=== PATIENT | male | born 1955 | race Caucasian/White ===

== ENCOUNTER → 2016-05-22 | Outpatient (CLI) | payer BC ==
[~2016-05-22] VITALS: Ht 170.2 cm; Wt 108.0 kg
[~2016-05-22] MED LIST: ALLO100T PO; AMPH10TA2 PO; CLC6 PO; GLC/500 PO; SERT100T PO; SERT50TA PO; TRAM-10 PO
[2016-05-22 13:51] VITALS: BP 164/80; PULSE 106; Ht 170.2 cm; Wt 108.0 kg
== END | disposition home or self-care (01) ==
LOC: C.NEUR 13:30
PROVIDERS: ATTEND Family Medicine
DX: G47.33 Obstructive sleep apnea (adult) (pediatric) (principal)

== ENCOUNTER → 2017-05-27 | Outpatient (CLI) | payer BC ==
[~2017-05-27] VITALS: Ht 170.2 cm; Wt 100.0 kg
[2017-05-27 15:41] VITALS: BP 144/83; PULSE 84; Ht 170.2 cm; Wt 100.0 kg
== END | disposition home or self-care (01) ==
LOC: C.NEUR 13:14
PROVIDERS: ATTEND Physician Assistant
DX: G47.33 Obstructive sleep apnea (adult) (pediatric) (principal)

== ENCOUNTER 2022-01-10 13:24 | Inpatient (IN) ==
[2022-01-10] MEDS ORDERED: MoRPHine SULFATE 4 MG/ML 1 ML CARP\\VIAL IV STA ×2 (14:17→16:30)
[2022-01-10] MEDS ORDERED: ONDANSETRON INJ 2 MG/ML 2 ML VIAL IV STA (14:17)
[2022-01-10] MEDS ORDERED: SODIUM CHLORIDE 0.9% 1000ML 1,000 ML IV STA (14:17)
--- NOTE | 2022-01-10 14:41 | Emergency Department Note ---
Impression & Plan Acute gallstone pancreatitis, Abdominal pain, Acute cholecystitis ED Provider Note NAME: KAVITA HERNANDEZ AGE: 66 SEX: M : 1955 ARRIVES VIA: Walk-In INFORMANT: [Patient][, ] ED PROVIDER(S): [Parminder Salinas MD] Chief Complaint: Abdominal pain HPI: Patient presents due to concern for right upper quadrant pain. Patient states that this began around midnight earlier this morning. The patient did not take anything for the pain and describes it as strong and nonradiating. The patient is had some mild right-sided back discomfort as well. Patient denies any fevers chills or chest pains. She denies any numbness tingling or focal weakness. Patient has had dry heaves but no vomiting. The patient does have prior surgical history of appendectomy and prior hernia repairs. The patient states that he last had a bowel movement yesterday no blood in the urine or stool and patient denies any dysuria. Patient denies any shortness of breath. Patient denies alcohol tobacco or drug use. The patient is a type II diabetic and does not use insulin. ROS: See HPI for pertinent positives and negatives. A total of 10 systems were reviewed and otherwise negative. Past medical history: See below Surgical history: See below Social history: See below Physical Exam: GENERAL: NAD, [wearing a mask,] non-toxic. EYE EXAM: Normal conjunctiva. PERRL, no anisocoria and EOM's grossly intact w/o pain. NECK: Supple, no nuchal rigidity, no adenopathy, non-tender. No signs of meningismus. FROM of the neck with good chin to chest and neck extension. No stridor. LUNGS: Clear to auscultation. Normal chest wall mechanics. HEART: NSR, no MRG. ABDOMEN: Abdomen soft, right upper quadrant pain, normo-active bowel sounds, no masses, no rebound or guarding. BACK: No CVA TTP. No midline or paraspinal lumbar thoracic discomfort. SKIN: No rashes and no bruising. UPPER EXTREMITIES: Upper extremities are grossly normal. LOWER EXTREMITIES: Right AKA noted, grossly normal, no edema. NEURO EXAM: A&O x3, cranial nerves II-XII grossly intact, normal speech, moves all 4 extremities. Differential diagnoses: Appendicitis, testicular torsion, infections, diverticulitis, UTI, obstruction, mesenteric ischemia, aortic pathology, inflammatory bowel disease, renal colic, PUD, pancreatitis, biliary pathology, hernia, volvulus, constipation, as well as other pathologies. Course: Patient was seen and evaluated the bedside. Full history physical exam was performed. Imaging Studies: See Below Cardiac monitoring: An order was placed for continuous cardiac monitoring. The monitor shows a rate of 77 with sinus rhythm. MDM: Patient presented due to concern for abdominal pain. Blood work obtained patient treated symptomatically with IV Zofran and IV morphine. Patient did have a CAT scan of the abdomen pelvis completed as well. Patient's blood work showed a normal white count. The patient's H&H and platelet count were unremarkable. Patient's kidney function unremarkable. Patient does have transaminitis with an elevated bilirubin 2.2 in addition to an elevated AST and ALT at 334 and 324 respectively. Lipase of 2500. Urinalysis negative for obvious infection. COVID-negative. Patient CT abdomen pelvis does show concern for cholecystitis as well as possible pancreatitis. Given patient's labs concern for gallstone pancreatitis. I did speak with on-call general surgery Dr. Treviño. I subsequently did speak with Dr. Franklin who does not perform ERCPs. He did speak with Dr. Miller who stated that he would perform an ERCP if needed. Patient did have antibiotics ordered and I did speak the on-call hospitalist Dr. Meza. Patient was admitted to the medicine service. MRCP was ordered and pending at the time of admission. Surgery and GI will both see the patient. Past Med/Surg History Medical History (Updated 01/10/22 @ 18:43 by Parminder Salinas MD) Depression Gout Hyperlipemia Opioid abuse, in remission Severe obstructive sleep apnea Type 2 diabetes mellitus Surgical History History of appendectomy History of hernia repair History of lumbar laminectomy History of right above knee amputation History of sinus surgery Family History Father Alzheimer disease Prostate cancer Mother Congestive heart failure Gout Social History Smoking Status: Former smoker Hx Alcohol Use: No Hx Substance Use: No Preferred Language: Kiswahili marital status: Current Living Situation: Family current occupational status: retired Feels Safe at Home: Yes Allergies Allergies Allergy/AdvReac Type Severity Reaction Status Date / Time bupropion Allergy Severe HIVES Verified 01/10/22 16:27 bee venom protein (honey bee) Allergy Intermediate hives, Verified 01/10/22 16:27 lips swell Home Meds Home Medications Medication Instructions Recorded Confirmed allopurinol 300 mg tablet 300 mg PO DAILY 01/10/22 01/10/22 aspirin 81 mg tablet,delayed 81 mg PO DAILY 01/10/22 01/10/22 release atorvastatin 40 mg tablet 40 mg PO DAILY 01/10/22 01/10/22 colchicine 0.6 mg tablet (Colcrys) 0.6 mg PO BID PRN gout attack 01/10/22 01/10/22 cyanocobalamin (vitamin B-12) 1,000 mcg PO DAILY 01/10/22 01/10/22 1,000 mcg tablet (Vitamin B-12) ferrous sulfate 325 mg (65 mg 325 mg PO DAILY 01/10/22 01/10/22 iron) tablet (iron) fluoride (sodium) 1.1 % dental 1 applic PO DIRECTED 01/10/22 01/10/22 cream (SF 5000 Plus) lisinopril 10 mg tablet 10 mg PO DAILY 01/10/22 01/10/22 metformin 500 mg tablet 1,000 mg PO BID 01/10/22 01/10/22 pregabalin 100 mg capsule 100 mg PO BID 01/10/22 01/10/22 sertraline 50 mg tablet 125 mg PO DAILY 01/10/22 01/10/22 tramadol 50 mg tablet 100 mg PO Q6 PRN Pain 01/10/22 01/10/22 valacyclovir 1 gram tablet 2 mg PO .[id number] 01/10/22 01/10/22 Results & Data (ED) Vital Signs Vital Signs - 24 hr 01/10/22 13:25 01/10/22 14:30 01/10/22 14:53 Temperature 36.9 C Temperature Source Oral Pulse Rate 78 72 Pulse Rate [Left Finger] 73 Pulse Rhythm Regular Pulse Rhythm [Left Finger] Pulse Strength [Left Finger] Respiratory Rate 16 16 12 Respiratory Effort / Characteristics Respiratory Depth Respiratory Pattern Blood Pressure 149/92 H Blood Pressure [Left Arm] 161/87 H Blood Pressure Mean 111 Blood Pressure Mean [Left Arm] 111 Pulse Oximetry 98 98 98 Oxygen Delivery Method Room Air Sepsis Recent Fever Within 48 Hours No Sepsis New/Unexplained Change in Mental Status N/A Sepsis Action Taken by Nursing No Action Required 01/10/22 16:00 Temperature Temperature Source Pulse Rate Pulse Rate [Left Finger] 75 Pulse Rhythm Pulse Rhythm [Left Finger] Regular Pulse Strength [Left Finger] Normal Respiratory Rate 18 Respiratory Effort / Characteristics Non-Labored Spontaneous Respiratory Depth Normal Respiratory Pattern Regular Blood Pressure Blood Pressure [Left Arm] 112/80 Blood Pressure Mean Blood Pressure Mean [Left Arm] 90 Pulse Oximetry 98 Oxygen Delivery Method Room Air Sepsis Recent Fever Within 48 Hours Sepsis New/Unexplained Change in Mental Status Sepsis Action Taken by [facility] Medications Current Medication List: was personally reviewed by me Laboratory Data Attestation: I reviewed the patient's lab results. Result diagrams: 01/10/22 14:36 01/10/22 14:36 Lab Results 01/10/22 01/10/22 01/10/22 Range/Units 14:36 14:36 14:36 WBC 7.51 (4.8-10.8) K/ul RBC 5.05 (4.63-6.08) M/uL Hgb 15.5 (14.0-18.0) g/dl Hct 44.8 (40.1-51.0) % MCV 88.7 (80.0-100.0) fL MCH 30.7 (25.0-34.0) pg MCHC 34.6 (32.0-36.0) g/dL RDW Std Deviation 42.7 (36.4-46.3) fL RDW Coeff of Rashi 13.2 (11.5-14.5) % Plt Count 203 (130-400) K/uL MPV 8.8 L (9.4-12.4) fL Immature Gran % (Auto) 1.2 % Neut % (Auto) 75.9 % Lymph % (Auto) 10.5 % Rabun % (Auto) 9.7 % Eos % (Auto) 2.3 % Baso % (Auto) 0.4 % Neut # (Auto) 5.70 (1.4-6.5) K/uL Lymph # (Auto) 0.79 L (1.2-3.4) K/uL Rabun # (Auto) 0.73 (0.24-0.82) K/uL Eos # (Auto) 0.17 (0-0.50) K/uL Baso # (Auto) 0.03 (0-0.2) K/uL Immature Gran # (Auto) 0.09 H (0.00-0.02) K/uL Sodium 137 (136-145) mmol/L Potassium 4.0 (3.5-5.1) mmol/L Chloride 104 (98-107) mmol/L Carbon Dioxide 25 (21-32) mmol/L Anion Gap 8 (3-11) BUN 14 (6-23) mg/dl Creatinine 0.70 (0.6-1.4) mg/dl Est Cr Clr Drug Dosing Not Reportable Est GFR ( Amer) 115.6 ml/min Est GFR (Non-Af Amer) 99.7 ml/min BUN/Creatinine Ratio 20.0 (10-20) Glucose 133 H (70-99(Fasting)) mg/dl Calcium 8.6 (8.5-10.1) mg/dl Total Bilirubin 2.2 H (0.2-1.0) mg/dl AST 334 H (13-39) U/L ALT 324 H (7-52) U/L Alkaline Phosphatase 137 H (34-104) U/L Total Protein 6.3 (6.0-8.3) gm/dl Albumin 4.1 (3.4-5.0) gm/dl Globulin 2.2 L (2.5-4.0) gm/dl Albumin/Globulin Ratio 1.9 (0.9-2) Lipase 2500 H (11-82) U/L Urine Color Dark Yellow Urine Appearance Clear (Clear) Urine pH 6.0 (4.5-7.5) Ur Specific [place] 1.020 (1.000-1.030) Urine Protein 1+ H (Negative) Urine Glucose (UA) 1+ H (Negative) Urine Ketones Negative (Negative) Urine Blood Negative (Negative) Urine Nitrite Negative (Negative) Urine Bilirubin 1+ H (Negative) Urine Urobilinogen Negative (Negative) Ur Leukocyte Esterase Negative (Negative) Urine WBC (Auto) 1-5 (0-5) /hpf Urine RBC (Auto) 0-4 (0-4) /hpf U Hyaline Cast (Auto) 0 (0-5) /lpf U Epithel Cells (Auto) 0-5 (0-5) /lpf Urine Bacteria (Auto) Negative (Negative) SARS-CoV-2, RNA, NAAT (NEGATIVE) 01/10/22 Range/Units Unknown WBC (4.8-10.8) K/ul RBC (4.63-6.08) M/uL Hgb (14.0-18.0) g/dl Hct (40.1-51.0) % MCV (80.0-100.0) fL MCH (25.0-34.0) pg MCHC (32.0-36.0) g/dL RDW Std Deviation (36.4-46.3) fL RDW Coeff of Rashi (11.5-14.5) % Plt Count (130-400) K/uL MPV (9.4-12.4) fL Immature Gran % (Auto) % Neut % (Auto) % Lymph % (Auto) % Rabun % (Auto) % Eos % (Auto) % Baso % (Auto) % Neut # (Auto) (1.4-6.5) K/uL Lymph # (Auto) (1.2-3.4) K/uL Rabun # (Auto) (0.24-0.82) K/uL Eos # (Auto) (0-0.50) K/uL Baso # (Auto) (0-0.2) K/uL Immature Gran # (Auto) (0.00-0.02) K/uL Sodium (136-145) mmol/L Potassium (3.5-5.1) mmol/L Chloride (98-107) mmol/L Carbon Dioxide (21-32) mmol/L Anion Gap (3-11) BUN (6-23) mg/dl Creatinine (0.6-1.4) mg/dl Est Cr Clr Drug Dosing Est GFR ( Amer) ml/min Est GFR (Non-Af Amer) ml/min BUN/Creatinine Ratio (10-20) Glucose (70-99(Fasting)) mg/dl Calcium (8.5-10.1) mg/dl Total Bilirubin (0.2-1.0) mg/dl AST (13-39) U/L ALT (7-52) U/L Alkaline Phosphatase (34-104) U/L Total Protein (6.0-8.3) gm/dl Albumin (3.4-5.0) gm/dl Globulin (2.5-4.0) gm/dl Albumin/Globulin Ratio (0.9-2) Lipase (11-82) U/L Urine Color Urine Appearance (Clear) Urine pH (4.5-7.5) Ur Specific [place] (1.000-1.030) Urine Protein (Negative) Urine Glucose (UA) (Negative) Urine Ketones (Negative) Urine Blood (Negative) Urine Nitrite (Negative) Urine Bilirubin (Negative) Urine Urobilinogen (Negative) Ur Leukocyte Esterase (Negative) Urine WBC (Auto) (0-5) /hpf Urine RBC (Auto) (0-4) /hpf U Hyaline Cast (Auto) (0-5) /lpf U Epithel Cells (Auto) (0-5) /lpf Urine Bacteria (Auto) (Negative) SARS-CoV-2, RNA, NAAT NEGATIVE (NEGATIVE) Administered Medications Discontinued Medications Sodium Chloride (Nss 1000ml) 1,000 mls @ 999 mls/hr IV .[id number] STA Stop: 01/10/22 15:17 Last Infusion: 01/10/22 16:05 Dose: 0 mls/hr Documented By: Admin: 01/10/22 14:52 Dose: 999 mls/hr Documented By: SAMARIA Piperacillin Sod/Tazobactam Sod (Zosyn) 4.5 gm in 120 mls @ 240 mls/hr IV NOW ONE Stop: 01/10/22 16:59 Last Infusion: 01/10/22 17:10 Dose: 0 mls/hr Documented By: Admin: 01/10/22 16:37 Dose: 240 mls/hr Documented By: KIP Ioversol (Optiray 300 500ml) 93 ml IV ONCE ONE Stop: 01/10/22 15:27 Last Admin: 01/10/22 15:27 Dose: 93 ml Documented By: NIC Morphine Sulfate (Morphine Sulfate 4 Mg/Ml 1 Ml Carp\Vial) 2 mg IV NOW STA Stop: 01/10/22 14:18 Last Admin: 01/10/22 14:52 Dose: Not Given Documented By: SAMARIA Morphine Sulfate (Morphine Sulfate 2 Mg/Ml Carp) Confirm Administered Dose 2 mg .ROUTE .STK-MED ONE Stop: 01/10/22 14:50 Last Admin: 01/10/22 14:53 Dose: 2 mg Documented By: SAMARIA Morphine Sulfate (Morphine Sulfate 4 Mg/Ml 1 Ml Carp\Vial) 4 mg IV NOW STA Stop: 01/10/22 16:31 Last Admin: 01/10/22 16:37 Dose: 4 mg Documented By: KIP Ondansetron HCl (Ondansetron Inj 2 Mg/Ml 2 Ml Vial) 4 mg IV NOW STA Stop: 01/10/22 14:18 Last Admin: 01/10/22 14:53 Dose: 4 mg Documented By: SAMARIA Imaging Data Radiologist's Impression: Abdomen/Pelvis CT 01/10/22 14:17 CT OF THE ABDOMEN AND PELVIS WITH CONTRAST CLINICAL HISTORY: Right upper quadrant and back pain. COMPARISON STUDY: None. TECHNIQUE: Following IV administration of 93 mL of Optiray, axial images of the abdomen and pelvis were obtained from the lung bases to the proximal femurs. Images were reviewed in the axial, sagittal, and coronal planes. IV contrast was administered without complication. Automated exposure control was utilized for the study. A dose lowering technique was utilized adhering to the principles of ALARA. CT DOSE: 1034.36 mGy.cm FINDINGS: Lung bases are unremarkable. No pneumatosis, free air or portal venous gas is present. No hepatic lesions are present. There is no biliary or pancreatic ductal dilatation. There is subtle stranding within the angelica hepatis and adjacent to the gallbladder. Gallbladder is slightly distended. There is also mild stranding adjacent to the pancreatic head and second portion of the duodenum. No peripancreatic fluid collection is present. There is no pancreatic ductal dilatation. No glandular atrophy is present. The spleen, adrenal glands are unremarkable. 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 A right renal cyst is present. Probable calyceal diverticulum within the upper pole of the left kidney that contains a 4 mm calculus. There is a 3 mm calculus within the upper pole of the left kidney. There are no ureteral calculi. There is no hydronephrosis. No evidence for a bowel obstruction. Colonic diverticulosis is n oted without evidence for acute diverticulitis. There is moderate aortoiliac atherosclerotic plaque. No acute fracture or suspicious lesion within the visualized skeletal structures. IVC filters in place. IMPRESSION: 1. Pericholecystic stranding and stranding within the angelica hepatis. The findings may reflect acute cholecystitis. 2. Mild stranding adjacent to the pancreatic head and second portion of the duodenum. Findings could be correlated with serum lipase level to exclude acute pancreatitis. 3. No biliary or pancreatic ductal dilatation. 4. Right pelvic kidney. 5. Left nephrolithiasis. ACT 112: Negative or not required by law. Electronically signed by: Catarino Bledsoe M.D. 01/10/2022 3:52 PM Discharge Plan Visit Data Chief Complaint: Abdominal Pain Stated Complaint: ABDOMEN TENDERNESS, NAUSEA, MID BACK PAIN ED Provider: Parminder Salinas Discharge Problem: Acute gallstone pancreatitis, Abdominal pain, Acute cholecystitis Patient Disposition: Admitted As Inpatient Forms Stand Alone Forms: [facility] Medical Prescriptions Prescriptions: No Action atorvastatin 40 mg Tablet 40 mg PO DAILY metformin 500 mg tablet 1,000 mg PO BID valacyclovir 1 gram tablet 2 mg PO .[id number] Rx Instructions: filled 01/07/2022 , 4 days cyanocobalamin (vitamin B-12) [Vitamin B-12] 1,000 mcg Tablet 1,000 mcg PO DAILY aspirin [Aspir-Low] 81 mg Tablet,Delayed Release (Dr/Ec) 81 mg PO DAILY tramadol 50 mg tablet 100 mg PO Q6 PRN (Reason: Pain) ferrous sulfate [iron] 325 mg (65 mg iron) Tablet 325 mg PO DAILY lisinopril 10 mg tablet 10 mg PO DAILY allopurinol 300 mg tablet 300 mg PO DAILY colchicine [Colcrys] 0.6 mg Tablet 0.6 mg PO BID PRN (Reason: gout attack) sertraline 50 mg tablet 125 mg PO DAILY Rx Instructions: T 2 & 1/2 tabs daily fluoride (sodium) [SF 5000 Plus] 1.1 % cream 1 applic PO DIRECTED pregabalin 100 mg capsule 100 mg PO BID Referrals Referrals: Kavita Ordoñez MD [Primary Care Provider] -
[2022-01-10 14:46] LABS: Basophils # (auto) 0.03 K/uL (0-0.2); Basophils % (auto) 0.4 %; Eosinophils # (auto) 0.17 K/uL (0-0.50); Eosinophils % (auto) 2.3 %; Hematocrit (blood only) 44.8 % (40.1-51.0); Hemoglobin 15.5 g/dl (14.0-18.0); Immature Granulocytes # (auto) 0.09 K/uL (0.00-0.02); Immature Granulocytes % (auto) 1.2 %; Lymphocytes # (auto) 0.79 K/uL (1.2-3.4); Lymphocytes % (auto) 10.5 %; Mean Corpuscular Hemoglobin 30.7 pg (25.0-34.0); Mean Corpuscular Hgb Conc 34.6 g/dL (32.0-36.0); Mean Corpuscular Volume 88.7 fL (80.0-100.0); Mean Platelet Volume 8.8 fL (9.4-12.4); Monocytes # (auto) 0.73 K/uL (0.24-0.82); Monocytes % (auto) 9.7 %; Neutrophils % (auto) 75.9 %; Platelet Count 203 K/uL (130-400); RDW Coefficient of Variation 13.2 % (11.5-14.5); RDW Standard Deviation 42.7 fL (36.4-46.3); Red Blood Count 5.05 M/uL (4.63-6.08); White Blood Count 7.51 K/ul (4.8-10.8)
[2022-01-10] MEDS ORDERED: MoRPHine SULFATE 2 MG/ML CARP ONE (14:49)
[2022-01-10 15:04] LABS: Appearance Urine Clear (Clear); Bacteria Urine Automated Negative (Negative); Blood Urine Negative (Negative); Cast Urine Automated 0 /lpf (0-5); Color Urine Dark Yellow; Epithelial Cell Urine Auto 0-5 /lpf (0-5); Glucose Urine UA 1+ (Negative); Ketones Urine Negative (Negative); Leukocyte Esterase Urine Negative (Negative); Nitrite Urine Negative (Negative); Protein Urine 1+ (Negative); RBC Urine Automated 0-4 /hpf (0-4); Urobilinogen Urine Negative (Negative)
[2022-01-10 15:06] LABS: Bilirubin Urine 1+ (Negative)
[2022-01-10 15:14] LABS: Alanine Aminotransferase 324 U/L (7-52); Albumin Globulin Ratio 1.9 (0.9-2); Albumin Level 4.1 gm/dl (3.4-5.0); Alkaline Phosphatase 137 U/L (34-104); Anion Gap 8 (3-11); Aspartate Aminotransferase 334 U/L (13-39); Bilirubin,Total 2.2 mg/dl (0.2-1.0); Blood Urea Nitrogen 14 mg/dl (6-23); Calcium 8.6 mg/dl (8.5-10.1); Carbon Dioxide 25 mmol/L (21-32); Chloride 104 mmol/L (98-107); Est GFR (African American) 115.6 ml/min; Est GFR (Non-African American) 99.7 ml/min; Globulin 2.2 gm/dl (2.5-4.0); Glucose 133 mg/dl (70-99(Fasting)); Sodium 137 mmol/L (136-145); Total Protein 6.3 gm/dl (6.0-8.3)
[2022-01-10] MEDS ORDERED: OPTIRAY 300 500mL IV ONE (15:26)
[2022-01-10 15:40] LABS: Lipase 2500 U/L (11-82)
--- NOTE | 2022-01-10 15:53 | CT Scan Report ---
CT OF THE ABDOMEN AND PELVIS WITH CONTRAST CLINICAL HISTORY: Right upper quadrant and back pain. COMPARISON STUDY: None. TECHNIQUE: Following IV administration of 93 mL of Optiray, axial images of the abdomen and pelvis we re obtained from the lung bases to the proximal femurs. Images were reviewed in the axial, sagittal, and coronal planes. IV contrast was administered without complication. Automated exposure control wa s utilized for the study. A dose lowering technique was utilized adhering to the principles of ALARA . CT DOSE: 1034.36 mGy.cm FINDINGS: Lung bases are unremarkable. No pneumatosis, free air or portal venous gas is present. No h epatic lesions are present. There is no biliary or pancreatic ductal dilatation. There is subtle stra nding within the angelica hepatis and adjacent to the gallbladder. Gallbladder is slightly distended. Th ere is also mild stranding adjacent to the pancreatic head and second portion of the duodenum. No per ipancreatic fluid collection is present. There is no pancreatic ductal dilatation. No glandular atrop hy is present. The spleen, adrenal glands are unremarkable. A right pelvic kidney is noted. This is c ongenital. A right renal cyst is present. Probable calyceal diverticulum within the upper pole of the left kidney that contains a 4 mm calculus. There is a 3 mm calculus within the upper pole of the lef t kidney. There are no ureteral calculi. There is no hydronephrosis. No evidence for a bowel obstruct ion. Colonic diverticulosis is noted without evidence for acute diverticulitis. There is moderate aor toiliac atherosclerotic plaque. No acute fracture or suspicious lesion within the visualized skeletal structures. IVC filters in place. IMPRESSION: 1. Pericholecystic stranding and stranding within the angelica hepatis. The findings may reflect acute c holecystitis. 2. Mild stranding adjacent to the pancreatic head and second portion of the duodenum. Findings could be correlated with serum lipase level to exclude acute pancreatitis. 3. No biliary or pancreatic ductal dilatation. 4. Right pelvic kidney. 5. Left nephrolithiasis. ACT 112: Negative or not required by law. Electronically signed by: Catarino Bledsoe M.D. 01/10/2022 3:52 PM
[2022-01-10] MEDS ORDERED: PIPERACILLIN/TAZOBACTAM 4.5 GM/120 ML BAG IV ONE (16:30)
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
[2022-01-10] MEDS ORDERED: ONDANSETRON INJ 2 MG/ML 2 ML VIAL IV PRN (17:15)
--- NOTE | 2022-01-10 17:43 | Surgery Consultation ---
Date of Consultation January 10, 2022 Assessment & Plan (1) Acute gallstone pancreatitis: 66-year-old gentleman presents with right upper quadrant and right back pain, elevated lipase, elevated total bilirubin. CT scan demonstrates acute pancreatitis and possible acute cholecystitis. He will be admitted to the medicine service and placed on IV fluids. GI has been consulted. An MRCP has been ordered. We will repeat his labs in the morning. If his labs continue to be elevated or the MRCP demonstrates choledocholithiasis, he will require ERCP. He will need cholecystectomy once the pancreatitis resolves and ideally prior to leaving the hospital. I will continue to follow along with you. History of Present Illness Reason for Consultation: Gallstone pancreatitis, possible acute cholecystitis Requesting Physician: Parminder Salinas MD Attending Physician: Parminder Salinas MD History of Present Illness 66-year-old gentleman presents with 18-hour history of pain starting in his mid back radiating through to his right side and right shoulder. This was started about midnight and has been constant since. It is a fairly sharp pain. The pain was associated with nausea. He denies fevers or chills. He has not had pain like this in the past. He denies chest pain or shortness of breath. He denies acholic stools, dark urine, jaundice, pruritus. Allergies Allergy/AdvReac Type Severity Reaction Status Date / Time bupropion Allergy Severe HIVES Verified 01/10/22 16:27 bee venom protein (honey bee) Allergy Intermediate hives, Verified 01/10/22 16:27 lips swell Home Medications Medication Instructions Recorded Confirmed Type allopurinol 300 mg tablet 300 mg PO DAILY 01/10/22 01/10/22 History aspirin 81 mg tablet,delayed 81 mg PO DAILY 01/10/22 01/10/22 History release atorvastatin 40 mg tablet 40 mg PO DAILY 01/10/22 01/10/22 History colchicine 0.6 mg tablet (Colcrys) 0.6 mg PO BID PRN gout attack 01/10/22 01/10/22 History cyanocobalamin (vitamin B-12) 1,000 mcg PO DAILY 01/10/22 01/10/22 History 1,000 mcg tablet (Vitamin B-12) ferrous sulfate 325 mg (65 mg 325 mg PO DAILY 01/10/22 01/10/22 History iron) tablet (iron) fluoride (sodium) 1.1 % dental 1 applic PO DIRECTED 01/10/22 01/10/22 History cream (SF 5000 Plus) lisinopril 10 mg tablet 10 mg PO DAILY 01/10/22 01/10/22 History metformin 500 mg tablet 1,000 mg PO BID 01/10/22 01/10/22 History pregabalin 100 mg capsule 100 mg PO BID 01/10/22 01/10/22 History sertraline 50 mg tablet 125 mg PO DAILY 01/10/22 01/10/22 History tramadol 50 mg tablet 100 mg PO Q6 PRN Pain 01/10/22 01/10/22 History valacyclovir 1 gram tablet 2 mg PO .[id number] 01/10/22 01/10/22 History Patient History Medical History (Updated 01/10/22 @ 17:43 by Cedric Treviño MD) Depression Gout Hyperlipemia Opioid abuse, in remission Severe obstructive sleep apnea Type 2 diabetes mellitus Surgical History History of appendectomy History of hernia repair History of lumbar laminectomy History of right above knee amputation History of sinus surgery Family History Father Alzheimer disease Prostate cancer Mother Congestive heart failure Gout Social History Smoking Status: Former smoker Hx Alcohol Use: No Hx Substance Use: No Preferred Language: Lithuanian marital status: Current Living Situation: Family current occupational status: retired Feels Safe at Home: Yes Review of Systems Review of Systems: All systems reviewed & are unremarkable except as noted in HPI & below Physical Exam Constitutional: WD/WN, vitals as above Neck: trachea midline, no thyromegaly Respiratory: normal respiratory effort; no respiratory distress and no labored breathing Cardiovascular: Rate/Rhythm: regular rate and regular rhythm Gastrointestinal (Abdomen): Inspection/Auscultation: abdomen normal to inspection; abdomen not distended Percussion/Palpation: + abdomen tender (Right upper quadrant) and abdomen soft; no guarding and abdomen not rigid Skin: no rashes, warm and dry Psychiatric: A+Ox3, euthymic affect Results & Data ([place]) Vital Signs (Past 12 Hours) Vital Signs Temp Pulse Pulse Resp BP BP Pulse Ox 01/10/22 16:00 75 18 112/80 98 01/10/22 14:53 73 12 161/87 H 98 01/10/22 14:30 72 16 98 01/10/22 13:25 36.9 C 78 16 149/92 H 98 O2 Del Method 01/10/22 16:00 Room Air 01/10/22 14:53 01/10/22 14:30 Room Air 01/10/22 13:25 Laboratory Results 01/10/22 01/10/22 01/10/22 Range/Units Unknown 14:36 14:36 WBC (4.8-10.8) K/ul RBC (4.63-6.08) M/uL Hgb (14.0-18.0) g/dl Hct (40.1-51.0) % MCV (80.0-100.0) fL MCH (25.0-34.0) pg MCHC (32.0-36.0) g/dL RDW Std Deviation (36.4-46.3) fL RDW Coeff of Rashi (11.5-14.5) % Plt Count (130-400) K/uL MPV (9.4-12.4) fL Immature Gran % (Auto) % Neut % (Auto) % Lymph % (Auto) % [place] % (Auto) % Eos % (Auto) % Baso % (Auto) % Neut # (Auto) (1.4-6.5) K/uL Lymph # (Auto) (1.2-3.4) K/uL [place] # (Auto) (0.24-0.82) K/uL Eos # (Auto) (0-0.50) K/uL Baso # (Auto) (0-0.2) K/uL Immature Gran # (Auto) (0.00-0.02) K/uL Sodium 137 (136-145) mmol/L Potassium 4.0 (3.5-5.1) mmol/L Chloride 104 (98-107) mmol/L Carbon Dioxide 25 (21-32) mmol/L Anion Gap 8 (3-11) BUN 14 (6-23) mg/dl Creatinine 0.70 (0.6-1.4) mg/dl Est Cr Clr Drug Dosing Not Reportable Est GFR ( Amer) 115.6 ml/min Est GFR (Non-Af Amer) 99.7 ml/min BUN/Creatinine Ratio 20.0 (10-20) Glucose 133 H (70-99(Fasting)) mg/dl Calcium 8.6 (8.5-10.1) mg/dl Total Bilirubin 2.2 H (0.2-1.0) mg/dl AST 334 H (13-39) U/L ALT 324 H (7-52) U/L Alkaline Phosphatase 137 H (34-104) U/L Total Protein 6.3 (6.0-8.3) gm/dl Albumin 4.1 (3.4-5.0) gm/dl Globulin 2.2 L (2.5-4.0) gm/dl Albumin/Globulin Ratio 1.9 (0.9-2) Lipase 2500 H (11-82) U/L Urine Color Dark Yellow Urine Appearance Clear (Clear) Urine pH 6.0 (4.5-7.5) Ur Specific [place] 1.020 (1.000-1.030) Urine Protein 1+ H (Negative) Urine Glucose (UA) 1+ H (Negative) Urine Ketones Negative (Negative) Urine Blood Negative (Negative) Urine Nitrite Negative (Negative) Urine Bilirubin 1+ H (Negative) Urine Urobilinogen Negative (Negative) Ur Leukocyte Esterase Negative (Negative) Urine WBC (Auto) 1-5 (0-5) /hpf Urine RBC (Auto) 0-4 (0-4) /hpf U Hyaline Cast (Auto) 0 (0-5) /lpf U Epithel Cells (Auto) 0-5 (0-5) /lpf Urine Bacteria (Auto) Negative (Negative) SARS-CoV-2, RNA, NAAT Pending 01/10/22 Range/Units 14:36 WBC 7.51 (4.8-10.8) K/ul RBC 5.05 (4.63-6.08) M/uL Hgb 15.5 (14.0-18.0) g/dl Hct 44.8 (40.1-51.0) % MCV 88.7 (80.0-100.0) fL MCH 30.7 (25.0-34.0) pg MCHC 34.6 (32.0-36.0) g/dL RDW Std Deviation 42.7 (36.4-46.3) fL RDW Coeff of Rashi 13.2 (11.5-14.5) % Plt Count 203 (130-400) K/uL MPV 8.8 L (9.4-12.4) fL Immature Gran % (Auto) 1.2 % Neut % (Auto) 75.9 % Lymph % (Auto) 10.5 % [place] % (Auto) 9.7 % Eos % (Auto) 2.3 % Baso % (Auto) 0.4 % Neut # (Auto) 5.70 (1.4-6.5) K/uL Lymph # (Auto) 0.79 L (1.2-3.4) K/uL [place] # (Auto) 0.73 (0.24-0.82) K/uL Eos # (Auto) 0.17 (0-0.50) K/uL Baso # (Auto) 0.03 (0-0.2) K/uL Immature Gran # (Auto) 0.09 H (0.00-0.02) K/uL Sodium (136-145) mmol/L Potassium (3.5-5.1) mmol/L Chloride (98-107) mmol/L Carbon Dioxide (21-32) mmol/L Anion Gap (3-11) BUN (6-23) mg/dl Creatinine (0.6-1.4) mg/dl Est Cr Clr Drug Dosing Est GFR ( Amer) ml/min Est GFR (Non-Af Amer) ml/min BUN/Creatinine Ratio (10-20) Glucose (70-99(Fasting)) mg/dl Calcium (8.5-10.1) mg/dl Total Bilirubin (0.2-1.0) mg/dl AST (13-39) U/L ALT (7-52) U/L Alkaline Phosphatase (34-104) U/L Total Protein (6.0-8.3) gm/dl Albumin (3.4-5.0) gm/dl Globulin (2.5-4.0) gm/dl Albumin/Globulin Ratio (0.9-2) Lipase (11-82) U/L Urine Color Urine Appearance (Clear) Urine pH (4.5-7.5) Ur Specific [place] (1.000-1.030) Urine Protein (Negative) Urine Glucose (UA) (Negative) Urine Ketones (Negative) Urine Blood (Negative) Urine Nitrite (Negative) Urine Bilirubin (Negative) Urine Urobilinogen (Negative) Ur Leukocyte Esterase (Negative) Urine WBC (Auto) (0-5) /hpf Urine RBC (Auto) (0-4) /hpf U Hyaline Cast (Auto) (0-5) /lpf U Epithel Cells (Auto) (0-5) /lpf Urine Bacteria (Auto) (Negative) SARS-CoV-2, RNA, NAAT Diagnostic Findings CT OF THE ABDOMEN AND PELVIS WITH CONTRAST CLINICAL HISTORY: Right upper quadrant and back pain. COMPARISON STUDY: None. TECHNIQUE: Following IV administration of 93 mL of Optiray, axial images of the abdomen and pelvis were obtained from the lung bases to the proximal femurs. Images were reviewed in the axial, sagittal, and coronal planes. IV contrast was administered without complication. Automated exposure control was utilized for the study. A dose lowering technique was utilized adhering to the principles of ALARA. CT DOSE: 1034.36 mGy.cm FINDINGS: Lung bases are unremarkable. No pneumatosis, free air or portal venous gas is present. No hepatic lesions are present. There is no biliary or pancreatic ductal dilatation. There is subtle stranding within the angelica hepatis and adjacent to the gallbladder. Gallbladder is slightly distended. There is also mild stranding adjacent to the pancreatic head and second portion of the duodenum. No peripancreatic fluid collection is present. There is no pancreatic ductal dilatation. No glandular atrophy is present. The spleen, adrenal glands are unremarkable. 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 A right renal cyst is present. Probable calyceal diverticulum within the upper pole of the left kidney that contains a 4 mm calculus. There is a 3 mm calculus within the upper pole of the left kidney. There are no ureteral calculi. There is no hydronephrosis. No evidence for a bowel obstruction. Colonic diverticulosis is noted without evidence for acute diverticulitis. There is moderate aortoiliac atherosclerotic plaque. No acute fracture or suspicious lesion within the visualized skeletal structures. IVC filters in place. IMPRESSION: 1. Pericholecystic stranding and stranding within the angelica hepatis. The findings may reflect acute cholecystitis. 2. Mild stranding adjacent to the pancreatic head and second portion of the duodenum. Findings could be correlated with serum lipase level to exclude acute pancreatitis. 3. No biliary or pancreatic ductal dilatation. 4. Right pelvic kidney. 5. Left nephrolithiasis.
--- NOTE | 2022-01-10 19:09 | Magnetic Resonance Report ---
MRCP CLINICAL HISTORY: ?gallstone pancreatitis. Abdominal pain. TECHNIQUE: Utilizing a 1.5 Funmilayo magnet and dedicated coil, multiplanar, multiecho imaging of the [facility] abdomen was performed utilizing heavily T2 weighted pulsing sequences without IV contrast. COMPARISON STUDY: CT of the abdomen and pelvis performed earlier today. FINDINGS: There is no intra or extra hepatic biliary ductal dilatation. Common bile duct measures 4 m m in caliber. No common bile duct calculi are identified. Course and caliber of the main pancreatic d uct is normal. Gallbladder is slightly distended. There is trace pericholecystic fluid. No gallstones are identified within the gallbladder by MRI. There is also trace fluid adjacent to the second porti on of the duodenum and the pancreatic head. No peripancreatic fluid collection is present. No hepatic lesions are identified on this unenhanced exam. A right pelvic kidney is incidentally noted. Suscept ibility artifact from IVC filter is incidentally noted. No abdominal lymphadenopathy is present. Pedro arturo of visualized small and large bowel are normal. IMPRESSION: 1. No biliary ductal dilatation. No common bile duct calculi identified. 2. Trace fluid adjacent to the pancreatic head and second portion of the duodenum which favors acute pancreatitis. 3. Trace pericholecystic fluid. Minimal gallbladder distention. A hepatobiliary scan could be obtaine d to exclude acute cholecystitis if indicated. ACT 112: Negative or not required by law. Electronically signed by: Catarino Bledsoe M.D. 01/10/2022 7:06 PM
[2022-01-10] MEDS ORDERED: DEXTROSE 50% 50 ML SYRINGE IV PRN (20:04)
[2022-01-10] MEDS ORDERED: GLUCOSE 10 TAB/TUBE PO PRN (20:04)
[2022-01-10] MEDS ORDERED: GLUCAGON FOR INJ 1 MG VIAL SQ PRN (20:04)
[2022-01-10] MEDS ORDERED: CARBOHYDRATES FOR HYPOGLYCEMIA PO PRN (20:04)
[2022-01-10] MEDS ORDERED: GLUCOSE 40% GEL 15 GM TUBE PO PRN (20:04)
[2022-01-10] MEDS: SODIUM CHLORIDE 0.9% 1000ML 1,000 ML IV SCH (20:46)
[2022-01-10] MEDS: PREGABALIN 100 MG CAP PO SCH (22:08)
[2022-01-10] MEDS: LANTUS PER UNIT CHARGE SQ SCH (22:08)
[2022-01-10] MEDS: PIPERACILLIN/TAZOBACTAM 4.5 GM in DEXTROSE 5% 100 ML IV SCH (22:23)
[2022-01-10] MEDS: traMADol HCL 50 MG TABLET PO PRN (22:27)
[2022-01-11] MEDS: INSULIN ASPART PER UNIT SC SCH ×5 (00:11→21:53)
[2022-01-11] MEDS: PIPERACILLIN/TAZOBACTAM 4.5 GM in DEXTROSE 5% 100 ML IV SCH ×3 (05:56→21:02)
[2022-01-11] MEDS ORDERED: ACETAMINOPHEN 65 ML IV ONE (07:40)
[2022-01-11] MEDS ORDERED: ACETAMINOPHEN 1000 MG/100 ML IV IV ONE (07:45)
[2022-01-11 08:40] LABS: Hematocrit (blood only) 44.5 % (40.1-51.0); Hemoglobin 15.3 g/dl (14.0-18.0); Mean Corpuscular Hemoglobin 30.4 pg (25.0-34.0); Mean Corpuscular Hgb Conc 34.4 g/dL (32.0-36.0); Mean Corpuscular Volume 88.3 fL (80.0-100.0); Mean Platelet Volume 8.6 fL (9.4-12.4); Platelet Count 164 K/uL (130-400); RDW Coefficient of Variation 13.4 % (11.5-14.5); RDW Standard Deviation 43.2 fL (36.4-46.3); Red Blood Count 5.04 M/uL (4.63-6.08); White Blood Count 8.18 K/ul (4.8-10.8)
[2022-01-11 09:04] LABS: Albumin Globulin Ratio 1.8 (0.9-2); Albumin Level 3.7 gm/dl (3.4-5.0); BUN Creatinine Ratio 10.8 (10-20); Bilirubin,Total 1.2 mg/dl (0.2-1.0); Calcium 8.2 mg/dl (8.5-10.1); Creatinine Clr Calc Pharmacy 98.8 ml/min; Est GFR (African American) 107.8 ml/min; Globulin 2.1 gm/dl (2.5-4.0); Magnesium 1.5 mg/dl (1.7-2.4); Phosphorus 3.1 mg/dl (2.5-4.9); Potassium 3.9 mmol/L (3.5-5.1); Total Protein 5.8 gm/dl (6.0-8.3)
[2022-01-11] MEDS: MAGNESIUM SULFATE / D5W 1 GM/100 ML BAG IV SCH ×2 (10:09→12:00)
[2022-01-11] MEDS: LANTUS PER UNIT CHARGE SQ SCH ×2 (10:24→20:58)
[2022-01-11] MEDS: ATORVASTATIN 40 MG TAB PO SCH (10:24)
[2022-01-11] MEDS: allopurinoL 300 MG TAB PO SCH (10:24)
[2022-01-11] MEDS: CYANOCOBALAMIN (B-12) 500 MCG TABLET PO SCH (10:24)
[2022-01-11] MEDS: PREGABALIN 100 MG CAP PO SCH ×2 (10:25→20:57)
[2022-01-11] MEDS: SERTRALINE HCL 50 MG TABLET PO SCH (10:25)
[2022-01-11] MEDS: lisinopril 10 MG TAB PO SCH (10:25)
--- NOTE | 2022-01-11 10:30 | Surgery Progress Note ---
Date of Service January 11, 2022 Assessment & Plan (1) Acute gallstone pancreatitis: (2) Acute cholecystitis: Plan 66-year-old gentleman with gallstone pancreatitis. Lipase is down to normal today. Total bilirubin 1.2 down from 2.2. MRCP was negative. He appears to have passed the stone. He continues to have right upper quadrant pain, a temperature to 39.0, diaphoresis, tachycardia, and evidence of cholecystitis on imaging. I discussed with him the risks and benefits of laparoscopic, possible open cholecystectomy with cholangiogram. All his questions were answered, he is agreeable to proceed. We will take him to the operating room at the earliest convenience. Admission and Anticipated Discharge Date Admission Date: January 10, 2022 Subjective Still complains of right upper quadrant abdominal pain. Temperature to 39.0. He has been diaphoretic. MRCP negative for stones in the common bile duct. Total bilirubin down to 1.2, lipase 43. Physical Exam Constitutional: WD/WN, vitals as above Neck: trachea midline, no thyromegaly Respiratory: normal respiratory effort; no respiratory distress and no labored breathing Cardiovascular: Rate/Rhythm: regular rate and regular rhythm Gastrointestinal (Abdomen): Inspection/Auscultation: abdomen normal to inspection; abdomen not distended Percussion/Palpation: + abdomen tender (Right upper quadrant) and abdomen soft; no guarding and abdomen not rigid Skin: no rashes, warm and dry Psychiatric: A+Ox3, euthymic affect Results & Data ([facility]) Vital Signs (Past 12 Hours) Vital Signs Temp Pulse Resp BP 01/11/22 10:02 36.8 C 01/11/22 07:11 39.0 C H 102 H 18 133/74 Laboratory Results 01/11/22 01/11/22 01/11/22 Range/Units 08:18 08:18 08:18 WBC 8.18 (4.8-10.8) K/ul RBC 5.04 (4.63-6.08) M/uL Hgb 15.3 (14.0-18.0) g/dl Hct 44.5 (40.1-51.0) % MCV 88.3 (80.0-100.0) fL MCH 30.4 (25.0-34.0) pg MCHC 34.4 (32.0-36.0) g/dL RDW Std Deviation 43.2 (36.4-46.3) fL RDW Coeff of Rashi 13.4 (11.5-14.5) % Plt Count 164 (130-400) K/uL MPV 8.6 L (9.4-12.4) fL Immature Gran % (Auto) % Neut % (Auto) % Lymph % (Auto) % [place] % (Auto) % Eos % (Auto) % Baso % (Auto) % Neut # (Auto) (1.4-6.5) K/uL Lymph # (Auto) (1.2-3.4) K/uL [place] # (Auto) (0.24-0.82) K/uL Eos # (Auto) (0-0.50) K/uL Baso # (Auto) (0-0.2) K/uL Immature Gran # (Auto) (0.00-0.02) K/uL Sodium 135 L (136-145) mmol/L Potassium 3.9 (3.5-5.1) mmol/L Chloride 103 (98-107) mmol/L Carbon Dioxide 24 (21-32) mmol/L Anion Gap 8 (3-11) BUN 9 (6-23) mg/dl Creatinine 0.83 (0.6-1.4) mg/dl Est Cr Clr Drug Dosing 98.8 Est GFR ( Amer) 107.8 ml/min Est GFR (Non-Af Amer) 93.0 ml/min BUN/Creatinine Ratio 10.8 (10-20) Glucose 137 H (70-99(Fasting)) mg/dl POC Glucose (70-99) mg/dl Calcium 8.2 L (8.5-10.1) mg/dl Phosphorus 3.1 (2.5-4.9) mg/dl Magnesium 1.5 L (1.7-2.4) mg/dl Total Bilirubin 1.2 H (0.2-1.0) mg/dl AST 90 H (13-39) U/L ALT 212 H (7-52) U/L Alkaline Phosphatase 124 H (34-104) U/L Total Protein 5.8 L (6.0-8.3) gm/dl Albumin 3.7 (3.4-5.0) gm/dl Globulin 2.1 L (2.5-4.0) gm/dl Albumin/Globulin Ratio 1.8 (0.9-2) Lipase 43 (11-82) U/L Urine Color Urine Appearance (Clear) Urine pH (4.5-7.5) Ur Specific [place] (1.000-1.030) Urine Protein (Negative) Urine Glucose (UA) (Negative) Urine Ketones (Negative) Urine Blood (Negative) Urine Nitrite (Negative) Urine Bilirubin (Negative) Urine Urobilinogen (Negative) Ur Leukocyte Esterase (Negative) Urine WBC (Auto) (0-5) /hpf Urine RBC (Auto) (0-4) /hpf U Hyaline Cast (Auto) (0-5) /lpf U Epithel Cells (Auto) (0-5) /lpf Urine Bacteria (Auto) (Negative) SARS-CoV-2, RNA, NAAT (NEGATIVE) 01/11/22 01/11/22 01/10/22 Range/Units 05:36 00:07 Unknown WBC (4.8-10.8) K/ul RBC (4.63-6.08) M/uL Hgb (14.0-18.0) g/dl Hct (40.1-51.0) % MCV (80.0-100.0) fL MCH (25.0-34.0) pg MCHC (32.0-36.0) g/dL RDW Std Deviation (36.4-46.3) fL RDW Coeff of Rashi (11.5-14.5) % Plt Count (130-400) K/uL MPV (9.4-12.4) fL Immature Gran % (Auto) % Neut % (Auto) % Lymph % (Auto) % [place] % (Auto) % Eos % (Auto) % Baso % (Auto) % Neut # (Auto) (1.4-6.5) K/uL Lymph # (Auto) (1.2-3.4) K/uL [place] # (Auto) (0.24-0.82) K/uL Eos # (Auto) (0-0.50) K/uL Baso # (Auto) (0-0.2) K/uL Immature Gran # (Auto) (0.00-0.02) K/uL Sodium (136-145) mmol/L Potassium (3.5-5.1) mmol/L Chloride (98-107) mmol/L Carbon Dioxide (21-32) mmol/L Anion Gap (3-11) BUN (6-23) mg/dl Creatinine (0.6-1.4) mg/dl Est Cr Clr Drug Dosing Est GFR ( Amer) ml/min Est GFR (Non-Af Amer) ml/min BUN/Creatinine Ratio (10-20) Glucose (70-99(Fasting)) mg/dl POC Glucose 122 H 130 H (70-99) mg/dl Calcium (8.5-10.1) mg/dl Phosphorus (2.5-4.9) mg/dl Magnesium (1.7-2.4) mg/dl Total Bilirubin (0.2-1.0) mg/dl AST (13-39) U/L ALT (7-52) U/L Alkaline Phosphatase (34-104) U/L Total Protein (6.0-8.3) gm/dl Albumin (3.4-5.0) gm/dl Globulin (2.5-4.0) gm/dl Albumin/Globulin Ratio (0.9-2) Lipase (11-82) U/L Urine Color Urine Appearance (Clear) Urine pH (4.5-7.5) Ur Specific [place] (1.000-1.030) Urine Protein (Negative) Urine Glucose (UA) (Negative) Urine Ketones (Negative) Urine Blood (Negative) Urine Nitrite (Negative) Urine Bilirubin (Negative) Urine Urobilinogen (Negative) Ur Leukocyte Esterase (Negative) Urine WBC (Auto) (0-5) /hpf Urine RBC (Auto) (0-4) /hpf U Hyaline Cast (Auto) (0-5) /lpf U Epithel Cells (Auto) (0-5) /lpf Urine Bacteria (Auto) (Negative) SARS-CoV-2, RNA, NAAT NEGATIVE (NEGATIVE) 01/10/22 01/10/22 01/10/22 Range/Units 20:26 14:36 14:36 WBC (4.8-10.8) K/ul RBC (4.63-6.08) M/uL Hgb (14.0-18.0) g/dl Hct (40.1-51.0) % MCV (80.0-100.0) fL MCH (25.0-34.0) pg MCHC (32.0-36.0) g/dL RDW Std Deviation (36.4-46.3) fL RDW Coeff of Rashi (11.5-14.5) % Plt Count (130-400) K/uL MPV (9.4-12.4) fL Immature Gran % (Auto) % Neut % (Auto) % Lymph % (Auto) % [place] % (Auto) % Eos % (Auto) % Baso % (Auto) % Neut # (Auto) (1.4-6.5) K/uL Lymph # (Auto) (1.2-3.4) K/uL [place] # (Auto) (0.24-0.82) K/uL Eos # (Auto) (0-0.50) K/uL Baso # (Auto) (0-0.2) K/uL Immature Gran # (Auto) (0.00-0.02) K/uL Sodium 137 (136-145) mmol/L Potassium 4.0 (3.5-5.1) mmol/L Chloride 104 (98-107) mmol/L Carbon Dioxide 25 (21-32) mmol/L Anion Gap 8 (3-11) BUN 14 (6-23) mg/dl Creatinine 0.70 (0.6-1.4) mg/dl Est Cr Clr Drug Dosing Not Reportable Est GFR ( Amer) 115.6 ml/min Est GFR (Non-Af Amer) 99.7 ml/min BUN/Creatinine Ratio 20.0 (10-20) Glucose 133 H (70-99(Fasting)) mg/dl POC Glucose 108 H (70-99) mg/dl Calcium 8.6 (8.5-10.1) mg/dl Phosphorus (2.5-4.9) mg/dl Magnesium (1.7-2.4) mg/dl Total Bilirubin 2.2 H (0.2-1.0) mg/dl AST 334 H (13-39) U/L ALT 324 H (7-52) U/L Alkaline Phosphatase 137 H (34-104) U/L Total Protein 6.3 (6.0-8.3) gm/dl Albumin 4.1 (3.4-5.0) gm/dl Globulin 2.2 L (2.5-4.0) gm/dl Albumin/Globulin Ratio 1.9 (0.9-2) Lipase 2500 H (11-82) U/L Urine Color Dark Yellow Urine Appearance Clear (Clear) Urine pH 6.0 (4.5-7.5) Ur Specific [place] 1.020 (1.000-1.030) Urine Protein 1+ H (Negative) Urine Glucose (UA) 1+ H (Negative) Urine Ketones Negative (Negative) Urine Blood Negative (Negative) Urine Nitrite Negative (Negative) Urine Bilirubin 1+ H (Negative) Urine Urobilinogen Negative (Negative) Ur Leukocyte Esterase Negative (Negative) Urine WBC (Auto) 1-5 (0-5) /hpf Urine RBC (Auto) 0-4 (0-4) /hpf U Hyaline Cast (Auto) 0 (0-5) /lpf U Epithel Cells (Auto) 0-5 (0-5) /lpf Urine Bacteria (Auto) Negative (Negative) SARS-CoV-2, RNA, NAAT (NEGATIVE) 01/10/22 Range/Units 14:36 WBC 7.51 (4.8-10.8) K/ul RBC 5.05 (4.63-6.08) M/uL Hgb 15.5 (14.0-18.0) g/dl Hct 44.8 (40.1-51.0) % MCV 88.7 (80.0-100.0) fL MCH 30.7 (25.0-34.0) pg MCHC 34.6 (32.0-36.0) g/dL RDW Std Deviation 42.7 (36.4-46.3) fL RDW Coeff of Rashi 13.2 (11.5-14.5) % Plt Count 203 (130-400) K/uL MPV 8.8 L (9.4-12.4) fL Immature Gran % (Auto) 1.2 % Neut % (Auto) 75.9 % Lymph % (Auto) 10.5 % [place] % (Auto) 9.7 % Eos % (Auto) 2.3 % Baso % (Auto) 0.4 % Neut # (Auto) 5.70 (1.4-6.5) K/uL Lymph # (Auto) 0.79 L (1.2-3.4) K/uL [place] # (Auto) 0.73 (0.24-0.82) K/uL Eos # (Auto) 0.17 (0-0.50) K/uL Baso # (Auto) 0.03 (0-0.2) K/uL Immature Gran # (Auto) 0.09 H (0.00-0.02) K/uL Sodium (136-145) mmol/L Potassium (3.5-5.1) mmol/L Chloride (98-107) mmol/L Carbon Dioxide (21-32) mmol/L Anion Gap (3-11) BUN (6-23) mg/dl Creatinine (0.6-1.4) mg/dl Est Cr Clr Drug Dosing Est GFR ( Amer) ml/min Est GFR (Non-Af Amer) ml/min BUN/Creatinine Ratio (10-20) Glucose (70-99(Fasting)) mg/dl POC Glucose (70-99) mg/dl Calcium (8.5-10.1) mg/dl Phosphorus (2.5-4.9) mg/dl Magnesium (1.7-2.4) mg/dl Total Bilirubin (0.2-1.0) mg/dl AST (13-39) U/L ALT (7-52) U/L Alkaline Phosphatase (34-104) U/L Total Protein (6.0-8.3) gm/dl Albumin (3.4-5.0) gm/dl Globulin (2.5-4.0) gm/dl Albumin/Globulin Ratio (0.9-2) Lipase (11-82) U/L Urine Color Urine Appearance (Clear) Urine pH (4.5-7.5) Ur Specific [place] (1.000-1.030) Urine Protein (Negative) Urine Glucose (UA) (Negative) Urine Ketones (Negative) Urine Blood (Negative) Urine Nitrite (Negative) Urine Bilirubin (Negative) Urine Urobilinogen (Negative) Ur Leukocyte Esterase (Negative) Urine WBC (Auto) (0-5) /hpf Urine RBC (Auto) (0-4) /hpf U Hyaline Cast (Auto) (0-5) /lpf U Epithel Cells (Auto) (0-5) /lpf Urine Bacteria (Auto) (Negative) SARS-CoV-2, RNA, NAAT (NEGATIVE)
[2022-01-11] MEDS: MoRPHine SULFATE 2 MG/ML CARP IV PRN ×2 (11:10→22:41)
--- NOTE | 2022-01-11 11:15 | Anesthesiology Consultation ---
Date of Service January 11, 2022 Assessment & Plan Chart Review Chart Review: Acceptable Risk for Surgery and Patient NOT seen in Pre Admission Testing Consults Requested none ASA [id number] Proposed Anesthesia Anesthesia Type: General History Surgery Operation Date: 01/11/22 16:00 Proposed Procedures p Laparoscopic Cholecystectomy - Cedric Treviño MD Height/Weight Height: 5 ft 7 in Weight: 95.1 kg Allergies Allergy/AdvReac Type Severity Reaction Status Date / Time bupropion Allergy Severe HIVES Verified 01/10/22 16:27 bee venom protein (honey bee) Allergy Intermediate hives, Verified 01/10/22 16:27 lips swell Medications Home Medications Medication Instructions Recorded Confirmed Last Taken allopurinol 300 mg tablet 300 mg PO DAILY 01/10/22 01/10/22 Unknown aspirin 81 mg tablet,delayed 81 mg PO DAILY 01/10/22 01/10/22 Unknown release atorvastatin 40 mg tablet 40 mg PO DAILY 01/10/22 01/10/22 Unknown colchicine 0.6 mg tablet (Colcrys) 0.6 mg PO BID PRN gout attack 01/10/22 01/10/22 Unknown cyanocobalamin (vitamin B-12) 1,000 mcg PO DAILY 01/10/22 01/10/22 Unknown 1,000 mcg tablet (Vitamin B-12) ferrous sulfate 325 mg (65 mg 325 mg PO DAILY 01/10/22 01/10/22 Unknown iron) tablet (iron) fluoride (sodium) 1.1 % dental 1 applic PO DIRECTED 01/10/22 01/10/22 Unknown cream (SF 5000 Plus) lisinopril 10 mg tablet 10 mg PO DAILY 01/10/22 01/10/22 Unknown metformin 500 mg tablet 1,000 mg PO BID 01/10/22 01/10/22 Unknown pregabalin 100 mg capsule 100 mg PO BID 01/10/22 01/10/22 Unknown sertraline 50 mg tablet 125 mg PO DAILY 01/10/22 01/10/22 Unknown tramadol 50 mg tablet 100 mg PO Q6 PRN Pain 01/10/22 01/10/22 Unknown valacyclovir 1 gram tablet 2 mg PO .[id number] 01/10/22 01/10/22 Unknown Active Medications Generic Name Dose Route Start Last Admin Trade Name Freq PRN Reason Stop Dose Admin Allopurinol 300 mg 01/11/22 09:00 01/11/22 10:24 Allopurinol 300 Mg Tab PO 02/10/22 08:59 Not Given DAILY COUNT INCLUDES THE [facility] Atorvastatin Calcium 40 mg 01/11/22 09:00 01/11/22 10:24 Atorvastatin 40 Mg Tab PO 02/10/22 08:59 Not Given DAILY APRYL Cyanocobalamin 1,000 mcg 01/11/22 09:00 01/11/22 10:24 Cyanocobalamin (B-12) 500 Mcg Tablet PO 02/10/22 08:59 Not Given DAILY COUNT INCLUDES THE [facility] Piperacillin Sod/Tazobactam 120 mls @ 30 mls/hr 01/10/22 21:30 01/11/22 09:56 Sod 4.5 gm/ Dextrose IV 01/20/22 21:29 Infused Q8H COUNT INCLUDES THE [facility] Infusion Protocol Sodium Chloride 1,000 mls @ 60 mls/hr 01/10/22 17:30 01/10/22 20:46 Nss 1000ml IV 01/12/22 02:49 60 mls/hr .[id number] APRYL Administration Magnesium Sulfate/Dextrose 1 gm in 100 mls @ 50 mls/hr 01/11/22 10:00 01/11/22 10:09 Magnesium Sulfate / D5w IV 01/11/22 13:59 50 mls/hr Q2H APRYL Administration Insulin Aspart 0 units 01/11/22 00:00 01/11/22 05:44 Insulin Aspart Per Unit SC 02/10/22 00:00 Not Given Q6 COUNT INCLUDES THE [facility] Insulin Glargine 5 units 01/10/22 21:00 01/11/22 10:24 Lantus Per Unit Charge SQ 02/09/22 20:59 Not Given BID COUNT INCLUDES THE [facility] Lisinopril 10 mg 01/11/22 09:00 01/11/22 10:25 Lisinopril 10 Mg Tab PO 02/10/22 08:59 Not Given DAILY COUNT INCLUDES THE [facility] Morphine Sulfate 2 mg 01/10/22 17:14 01/11/22 11:10 Morphine Sulfate 2 Mg/Ml Carp IV 01/24/22 17:13 2 mg Q6H PRN Administration Pain Pregabalin 100 mg 01/10/22 21:00 01/11/22 10:25 Pregabalin 100 Mg Cap PO 02/09/22 20:59 Not Given BID COUNT INCLUDES THE [facility] Sertraline HCl 125 mg 01/11/22 09:00 01/11/22 10:25 Sertraline Hcl 50 Mg Tablet PO 02/10/22 08:59 Not Given DAILY APRYL Tramadol HCl 100 mg 01/10/22 20:04 01/10/22 22:27 Tramadol Hcl 50 Mg Tablet PO 02/09/22 20:03 100 mg Q6H PRN Administration Pain Past Medical History Medical History Depression Gout Hyperlipemia Opioid abuse, in remission Severe obstructive sleep apnea Type 2 diabetes mellitus Exercise / Class Metabolic Activity III < 4 Walking/Shop/Light housework Past Family History Family History Father Alzheimer disease Prostate cancer Mother Congestive heart failure Gout Past Surgical History Surgical History History of appendectomy History of hernia repair History of lumbar laminectomy History of right above knee amputation History of sinus surgery Past Anesthesia History No Hx of Anesthesia Complications and No Family Hx of Anesthesia Complications History of PONV No Hx of PONV and No Hx of Motion Sickness Social History Smoking Status: Former smoker tobacco type: cigarettes Hx Alcohol Use: No Hx Substance Use: No substance use type: does not use Physical Exam Vital Signs Last Vital Signs Temp 36.8 C 01/11/22 10:02 Pulse 102 H 01/11/22 07:11 Resp 18 01/11/22 07:11 BP 133/74 01/11/22 07:11 Pulse Ox 96 01/10/22 20:48 O2 Del Method 01/10/22 20:48 Testing Laboratory Results 01/11/22 08:18 01/11/22 08:18 Urine Color Dark Yellow 01/10/22 14:36 Urine Appearance Clear (Clear) 01/10/22 14:36 Urine pH 6.0 (4.5-7.5) 01/10/22 14:36 Ur Specific [place] 1.020 (1.000-1.030) 01/10/22 14:36 Urine Protein 1+ (Negative) H 01/10/22 14:36 Urine Glucose (UA) 1+ (Negative) H 01/10/22 14:36 Urine Ketones Negative (Negative) 01/10/22 14:36 Urine Nitrite Negative (Negative) 01/10/22 14:36 Ur Leukocyte Esterase Negative (Negative) 01/10/22 14:36 Urine WBC (Auto) 1-5 /hpf (0-5) 01/10/22 14:36 Urine RBC (Auto) 0-4 /hpf (0-4) 01/10/22 14:36 U Hyaline Cast (Auto) 0 /lpf (0-5) 01/10/22 14:36 U Epithel Cells (Auto) 0-5 /lpf (0-5) 01/10/22 14:36 Urine Bacteria (Auto) Negative (Negative) 01/10/22 14:36 01/11/22 01/11/22 05:36 00:07 POC Glucose 122 H 130 H
--- NOTE | 2022-01-11 11:40 | Hospitalist Progress Note ---
Date of Service January 11, 2022 Assessment & Plan (1) Acute cholecystitis: (2) Acute gallstone pancreatitis: (3) Transaminitis: Plan: Present on admission with severe upper epigastric pain radiating to mid back associated with nausea/dry heaves CT abd/pelvis showed Pericholecystic stranding and stranding within the angelica hepatis. Mild stranding adjacent to the pancreatic head and second portion of the duodenum. Lipase on admission 2500, then normalized today at 42 Elevated Liver enzymes on admission with AST 334 and ALT 324, trending down with AST 90 and ALT 212 MRCP showed No biliary ductal dilatation. No common bile duct calculi identified . Trace fluid adjacent to the pancreatic head and second portion of the duodenum which favors acute pancreatitis. Lipase normalized and liver enzymes trending down today possible pt passed a stone gastro on board Surgery on board - Plan for Laparoscopic, possible open cholecystectomy with cholangiogram today if the intraoperative cholangiogram is positive, the patient may need ERCP as per GI Continue pain control and IVF Continue IV Zosyn for now Keep NPO for now Continue monitor closely Hypomagnesemia Mg 1.5 today Mg replaced Continue monitor Diabetes type 2 Most recent Hba1c 6.1 Continue to hold oral diabetes med Pt was starting on Lantus while inpatient, will hold it since patient is NPO Continue Novolog sliding scale Continue monitor BS DVT prophylaxis: SCDs planning for surgery Full code Admission and Anticipated Discharge Date Admission Date: January 10, 2022 Subjective Pt was seen and examined for follow up of abdominal pain Sitting in bed with no acute distress Pt said that pain control because he just received narcotic for it Surgery is planning to take him to OR today for gallbladder removal Denies any chest pain, palpitation, dizziness and SOB Review of Systems Review of Systems: All systems reviewed & are unremarkable except as noted in Subjective Physical Exam Physical Exam: General- No acute distress Head- atraumatic Eyes- PERRL, EOMI, ENT- oropharynx clear Neck- supple, no JVD Lungs- clear to auscultation Heart- regular rhythm; no murmur Abdomen- normal bowel sounds, + tender Extremities- no calf tenderness, +RLE AKA noted Neuro- alert, oriented x 3, PERRL, EOMI; no facial palsy; no dysarthria Skin- warm & dry Results & Data Results & Data ([facility]) Vital Signs (Past 12 Hours) Vital Signs Temp Pulse Resp BP 01/11/22 10:02 36.8 C 01/11/22 07:11 39.0 C H 102 H 18 133/74
[2022-01-11] MEDS ORDERED: DEXAMETHASONE SOD INJ 4 MG/ML VIAL ONE (12:37)
[2022-01-11] MEDS ORDERED: fentaNYL citrate 100 MCG/2 ML VIAL ONE ×2 (12:37→15:10)
[2022-01-11] MEDS ORDERED: MIDAZOLAM HCL 1 MG/ML 2ML VIAL ONE (12:37)
[2022-01-11] MEDS ORDERED: GLYCOPYRROLATE 0.2 MG/ML VIAL ONE (12:37)
[2022-01-11] MEDS ORDERED: ONDANSETRON INJ 2 MG/ML 2 ML VIAL ONE ×2 (12:37→15:10)
[2022-01-11] MEDS ORDERED: PROPOFOL IV EMULSION 10 MG/ML 20 ML VIAL IV ONE (12:37)
[2022-01-11] MEDS ORDERED: NEOSTIGMINE METHYLSULFATE 1 MG/ML 10ML VIAL ONE (12:37)
[2022-01-11] MEDS: SODIUM CHLORIDE 0.9% 1000ML 1,000 ML IV SCH (13:47)
--- NOTE | 2022-01-11 13:58 | Communication Note ---
Date of Service: January 11, 2022 LARISA(01/11/2022)-NSR @ 88;ROCKY
[2022-01-11] MEDS ORDERED: BUPIVACAINE/EPINEPHRINE 0.25% 1:200,000 30 ML VIAL ONE (14:00)
--- NOTE | 2022-01-11 14:33 | Billing Data ---
Date of Service January 11, 2022 Coding Level of Care Code 11185 Inpt Consult Level 3
[2022-01-11] MEDS ORDERED: OPTIRAY 300 IV PRN (14:44)
[2022-01-11] MEDS ORDERED: SUCCINYLCHOLINE CHLORIDE 20 MG/ML 10 ML VIAL IV ONE (14:52)
[2022-01-11] MEDS ORDERED: ROCURONIUM BROMIDE 10 MG/ML 5 ML VIAL IV ONE (14:52)
--- NOTE | 2022-01-11 15:04 | Post Operative Brief Note ---
Immediate Post Op Note v1 Date of Surgery January 11, 2022 Pre & Post Diagnosis Operation Date: 01/11/22 16:00 Pre-Op Diagnosis: Right Upper Quadrant Pain Post-Op Diagnosis: Right Upper Quadrant Pain I identified the patient and participated in the time-out.: Yes Procedure Operation Date: 01/11/22 16:00 Actual Procedures p Laparoscopic Cholecystectomy - Cedric Treviño MD Surgeon Cedric Treviño MD Machine Leather Trimmer None Estimated Blood Loss 10 Findings Consistent with Post-Op Diagnosis Acute cholecystitis
--- NOTE | 2022-01-11 15:08 | Operative Report ---
Post Operative Report Pre & Post Diagnosis Operation Date: 01/11/22 16:00 Pre-Op Diagnosis: Right Upper Quadrant Pain Post-Op Diagnosis: Right Upper Quadrant Pain I identified the patient and participated in the time-out.: Yes Procedure Operation Date: 01/11/22 16:00 Actual Procedures p Laparoscopic Cholecystectomy - Cedric Treviño MD Surgeon Cedric Treviño MD Chief Technician None Estimated Blood Loss 10 Findings Consistent with Post-Op Diagnosis Acute cholecystitis Specimens Gallbladder Drains None Anesthesia Type General Complications No immediate complications Indications Acute gallstone pancreatitis/acute cholecystitis Description of Procedure The patient was taken to the operating room, and placed supine on the operating table. A timeout was performed, perioperative antibiotics were administered, SCD boots were placed. After adequate anesthesia and analgesia was obtained, the abdomen was prepped and draped in the normal sterile fashion. Local anesthetic was injected into and around the proposed incision sites. An incision was made with a 15 blade scalpel in the supraumbilical region and carried down to the level of the fascia. The fascia was grasped with a trach hook, and a varies needle was used to enter the abdominal cavity. The abdomen was insufflated to a pressure of 15 mmHg, and a 11 mm trocar was placed in this location. A 10 mm, 30 degree laparoscope was placed into the abdominal cavity, and the abdomen was surveyed. Two 5 mm trochars were placed along the right costal margin, and one 5 mm trocar was placed in the subxiphoid region under direct visualization. The gallbladder was grasped and retracted cephalad and laterally, exposing the triangle of Calot. We had significant difficulty due to his body habitus and plethora of omentum and fatty tissue. Another 5 mm trocar was placed in the midline and a fan retractor was used to keep the fat out of the way. Dissection began in the triangle with a combination of blunt dissection with the [place] dissector, and judicious use of the hook cautery. The cystic duct and cystic artery were dissected free circumferentially, and a critical view of safety was obtained. Due to the patient's body habitus and angle of the rib cage and duct, an intraoperative cholangiogram was not attempted. The cystic duct and cystic artery were clipped and transected, and the gallbladder was removed from the gallbladder fossa with the hook cautery. The camera was switched to a 5 mm, the gallbladder was placed in an Endo Catch bag, and removed via the supraumbilical port site. The camera was switched back to the 10 mm camera, and the abdomen was surveyed again. Hemostasis was checked and attended, and was excellent. The abdomen was copiously irrigated and suctioned free. Again hemostasis was checked and was excellent. All trochars were removed under direct visualization. The abdomen was desufflated. The fascia in the 11 mm port site was closed with a 0 Vicryl suture. The skin was closed with a running 4-0 Monocryl subcuticular stitch. Dermabond was applied. The patient tolerated the procedure without complication, and was transferred in stable condition to the PACU. All instrument, needle, and sponge counts were correct at the end of the case. I attest to the content of the Intraoperative Record and any orders documented therein. Any exceptions are noted below.
[2022-01-11] MEDS ORDERED: ePHEDrine sulfate 50 MG/ML AMP IV PRN (15:20)
[2022-01-11] MEDS ORDERED: ATROPINE SULFATE 0.1 MG/ML 10ML SYR IV PRN (15:20)
[2022-01-11] MEDS ORDERED: LABETALOL HCL IV 5 MG/ML 20ML IV PRN (15:20)
[2022-01-11] MEDS ORDERED: PROMETHAZINE HCL 12.5 MG in SODIUM CHLORIDE 0.9% 50 ML IV PRN (15:20)
[2022-01-11] MEDS ORDERED: NALOXONE HCL 0.4 MG/1 ML VIAL/CARP IV PRN (15:20)
[2022-01-11] MEDS ORDERED: FLUMAZENIL 0.1 MG/1 ML 10 ML VIAL IV PRN (15:20)
[2022-01-11] MEDS ORDERED: fentaNYL citrate 100 MCG/2 ML VIAL IV PRN (15:20)
[2022-01-11] MEDS ORDERED: ONDANSETRON INJ 2 MG/ML 2 ML VIAL IV PRN (15:20)
--- NOTE | 2022-01-11 15:55 | Anesthesiology Progress Note ---
Date of Service January 11, 2022 Anesthesia Post Procedure Vital Signs Vital Signs: Temp Pulse Pulse Resp BP BP Pulse Ox 01/11/22 15:45 97 H 22 108/59 L 93 01/11/22 15:35 99 H 24 104/55 L 94 01/11/22 15:25 100 H 22 117/58 L 97 01/11/22 15:14 37.6 C H 105 H 18 136/62 97 01/11/22 10:02 36.8 C 01/11/22 07:11 39.0 C H 102 H 18 133/74 01/10/22 20:48 36.7 C 81 18 147/71 H 96 01/10/22 16:00 75 18 112/80 98 O2 Del Method O2 Flow Rate 01/11/22 15:45 Nasal Cannula 2 01/11/22 15:35 Oxymask 3 01/11/22 15:25 Oxymask 6 01/11/22 15:14 Oxymask 6 01/11/22 10:02 01/11/22 07:11 01/10/22 20:48 Room Air 01/10/22 16:00 Room Air Pain Intensity Abdomen: Pain Intensity: 6 Transfer of Care Handoff Completed per policy Notes Mental Status: alert / awake / arousable Patient Amnestic to Procedure: Yes Nausea / Vomiting: adequately controlled Pain: adequately controlled Airway Patency, RR, SpO2: stable & adequate BP & HR: stable & adequate Hydration State: stable & adequate Anesthetic Complications: no major complications apparent
[2022-01-11] MEDS ORDERED: Nursing to Pharmacy Communication SCH (16:30)
--- NOTE | 2022-01-11 16:57 | Consultation Report ---
DATE OF CONSULT: 01/11/2022 GASTROENTEROLOGY CONSULTATION AGE: 66. SEX: Male. RACE: . ATTENDING PHYSICIAN: Parminder Salinas MD. CONSULTING PHYSICIAN: Sadiq Franklin DO. REASON FOR CONSULTATION: Gallstone pancreatitis, possible ERCP. HISTORY OF PRESENT ILLNESS: The patient is a 66-year-old male who presented to the [facility] ent of Emergency Medicine yesterday with complaints of epigastric abdominal pain radiating to his bryce k with nausea, dry heaves and subsequently had laboratory studies in the Department of Emergency Med[facility], which showed findings including a total bilirubin of 2.2, AST of 334, ALT of 324, alkaline phos phatase of 137 and a lipase level of 2500. He subsequently underwent a CT scan of the abdomen and pe lvis and was noted to have pericholecystic stranding and acute pancreatitis, but no biliary or pancre atic ductal dilatation was noted. He subsequently underwent an MRCP, which was unremarkable for chol edocholithiasis, though did show evidence of acute cholecystitis. He was seen by Shaun Treviño of [facility] who felt that the patient had acute gallstone pancreatitis as indicated by the testing noted ab camilo and I discussed this case in detail with both Dr. Treviño as well as Dr. Miller the advanced e ndoscopist and due to the negative MRCP and repeat liver panel showing improving numbers with a lipas e level that normalized, the decision was made that the patient will undergo a cholecystectomy with i ntraoperative cholangiogram and ERCP would not be needed at this time. I discussed this with the [facility] ent as well at his bedside today who continued to complain of some mild right upper quadrant abdomina l pain, though he states that it lessened significantly since his arrival. As he was admitted and damian pippa on IV antibiotics as well as narcotic analgesics and antiemetic therapy. The patient was in agre ement with the plan and had no further questions. PAST MEDICAL HISTORY: Includes type 2 diabetes, gout, obstructive sleep apnea, depression, hyperlipi demia, carpal tunnel syndrome, HSV infection, lumbar disk disease. PAST SURGICAL HISTORY: Includes an appendectomy, hernia repair, lumbar laminectomy, right AKA and a history of sinus surgery. ALLERGIES: INCLUDE BUPROPION WELL BEE VENOM. MEDICATIONS: At present include vitamin B12 1000 mcg p.o. daily, insulin sliding scale, insulin glar gine 5 units subcutaneously b.i.d., Zestril 10 mg p.o. daily, morphine 2 mg IV q. 6 hours p.r.n., Zof ran 4 mg IV q. 6 hours p.r.n. Zosyn 4.5 grams IV q. 8 hours, Lyrica 100 mg p.o. b.i.d., Zoloft 125 mg p.o. daily, tramadol 100 mg p.o. q. 6 hours p.r.n. SOCIAL HISTORY: He is and lives with his family. Denies any alcohol or illicit drug use. Nixon casillas is a former smoker. FAMILY HISTORY: Negative for GI malignancy or inflammatory bowel disease. REVIEW OF SYSTEMS: Negative x12 system review other than pertinent positives listed in the HPI. PHYSICAL EXAMINATION: VITAL SIGNS: Include a temperature of 36.8, pulse 102, respirations 18, blood pressure 133/74, pulse ox 96% on room air. GENERAL: He is awake and cooperative, in no acute distress. HEAD: Normocephalic, atraumatic. EYES: Pupils equal, round. Extraocular muscles are intact. ENT: External evaluation of ears and nose are normal. Oropharynx is clear. NECK: Soft and supple. There is no JVD or lymphadenopathy. CHEST: Clear to auscultation bilaterally. CARDIOVASCULAR: Regular rate and rhythm. ABDOMEN: Soft, tender in the right upper quadrant, nondistended, positive bowel sounds. There is no hepatosplenomegaly or stigmata of chronic liver disease. EXTREMITIES: No clubbing, cyanosis or edema. PSYCHIATRIC: Normal affect. Normal mood. Radiographic studies and laboratory studies were reviewed in the HPI. IMPRESSION: A 66-year-old male with acute cholecystitis and gallstone pancreatitis. PLAN: At the present time, Dr. Treviño will plan to perform a cholecystectomy with intraoperative cho langiogram. If there are no findings on intraoperative cholangiogram, there will be no need for ERCP . However, if the intraoperative cholangiogram is positive, the patient may need ERCP in the near fu ture, though this is doubtful with the improvement of the patient's symptoms as well as a normal MRCP . I would recommend continuing current therapy and supportive care. I will follow his clinical cour se and make further recommendations as needed. Once again, thanks for allowing me to participate in the care of this patient. If you have any furth er questions, please do not hesitate in contacting me. Job ID: [id number]
[2022-01-11] MEDS: traMADol HCL 50 MG TABLET PO PRN (20:57)
[2022-01-11] MEDS: ACETAMINOPHEN 325 MG TAB PO PRN (22:40)
[2022-01-11] MEDS ORDERED: KETOROLAC TROMETHAMINE 15 MG/ML VIAL IV ONE (23:46)
[2022-01-12] MEDS ORDERED: FUROSEMIDE INJ 20 MG/2 ML VIAL IV ONE (00:10)
[2022-01-12 00:17] LABS: Base Excess ABG 0.6 mEq/L (-9-1.8); HCO3 ABG 25 mmol/L (19-24); Oxygen Saturation ABG 96.6 % (90-95); PCO2 ABG 36 mmHg (35-46); PO2 ABG 67 mmHg (80-95); pH ABG 7.44 (7.35-7.45)
[2022-01-12 00:20] LABS: Allen Test Pos (Pos)
[2022-01-12] MEDS: PIPERACILLIN/TAZOBACTAM 4.5 GM in DEXTROSE 5% 100 ML IV SCH ×3 (05:01→22:23)
[2022-01-12] MEDS: ACETAMINOPHEN 325 MG TAB PO PRN ×2 (05:53→17:20)
--- NOTE | 2022-01-12 08:24 | Communication Note ---
Date of Service: January 12, 2022 Dejon DUARTE asked to evaluate, elevated LFTs. He is s/p CCY with improving transaminases. He notes his abd pain is resolved. Denies nausea, vomiting. No acute biliary concerns on MRCP. Would continue to trend LFTs. If they continue to decrease, OP EUS. If they start to increase, inpatient ERCP. Case was discussed with biliary team. GI will watch labs peripherally. Thank you for allowing us to participate in the care of this patient. Please call with any acute changes, questions or concerns. Please see addendum below with additional recommendation from my supervising physician.
--- NOTE | 2022-01-12 08:59 | Surgery Progress Note ---
Date of Service January 12, 2022 Assessment & Plan (1) Acute gallstone pancreatitis: (2) Acute cholecystitis: Plan Postop day 1 status post lap avi. Due to body habitus we are unable to complete intraoperative cholangiogram. We will await LFTs and lipase this morning. If the labs are elevated, he will need ERCP. If the labs remain low, we will advance his diet as tolerated. We will continue antibiotics for now due to the fevers. Admission and Anticipated Discharge Date Admission Date: January 10, 2022 Subjective Postop day 1 status post lap avi for gallstone pancreatitis and acute cholecystitis. He denies significant pain this morning. He denies nausea. He is asking for solid foods. He did have a temperature to 38.5 this morning. Labs are pending. Physical Exam Physical Exam: Alert and oriented x3, no acute distress Abdomen: Soft, obese, minimal tenderness to palpation; incisions healing well without erythema or discharge; Dermabond in place Results & Data ([facility]) Vital Signs (Past 12 Hours) Vital Signs Temp Pulse Resp BP Pulse Ox O2 Del Method O2 Flow Rate 01/12/22 07:25 38.5 C H 106 H 18 125/70 96 Room Air 01/12/22 03:45 36.6 C 75 18 97/59 L 94 Room Air 01/11/22 21:00 Nasal Cannula 2 01/12/22 01:57 36.8 C 93 H 93 Room Air 01/11/22 23:20 38.3 C H 01/11/22 22:35 39.2 C H 88 L Room Air 01/11/22 22:14 38.0 C H 92 H 18 133/71 98 Nasal Cannula 2.0 01/12/22 00:33 38.1 C H 92 Room Air
[2022-01-12 09:05] LABS: Hematocrit (blood only) 40.6 % (40.1-51.0); Hemoglobin 14.1 g/dl (14.0-18.0); Mean Corpuscular Hemoglobin 30.5 pg (25.0-34.0); Mean Corpuscular Hgb Conc 34.7 g/dL (32.0-36.0); Mean Corpuscular Volume 87.9 fL (80.0-100.0); Mean Platelet Volume 9.2 fL (9.4-12.4); Platelet Count 153 K/uL (130-400); RDW Coefficient of Variation 13.6 % (11.5-14.5); RDW Standard Deviation 43.4 fL (36.4-46.3); Red Blood Count 4.62 M/uL (4.63-6.08)
[2022-01-12 09:07] LABS: Basophils # (auto) 0.01 K/uL (0-0.2); Basophils % (auto) 0.1 %; Echinocytes 1+; Eosinophils # (auto) 0.44 K/uL (0-0.50); Immature Granulocytes # (auto) 0.06 K/uL (0.00-0.02); Immature Granulocytes % (auto) 0.8 %; Lymphocytes # (auto) 0.17 K/uL (1.2-3.4); Lymphocytes % (auto) 2.3 %; Monocytes # (auto) 0.63 K/uL (0.24-0.82); Monocytes % (auto) 8.6 %; Neutrophils # (auto) 5.99 K/uL (1.4-6.5); Neutrophils % (auto) 82.2 %
[2022-01-12] MEDS: allopurinoL 300 MG TAB PO SCH (09:12)
[2022-01-12] MEDS: SERTRALINE HCL 50 MG TABLET PO SCH (09:12)
[2022-01-12] MEDS: ATORVASTATIN 40 MG TAB PO SCH (09:12)
[2022-01-12] MEDS: lisinopril 10 MG TAB PO SCH (09:12)
[2022-01-12] MEDS: CYANOCOBALAMIN (B-12) 500 MCG TABLET PO SCH (09:12)
[2022-01-12 09:21] LABS: Albumin Level 3.4 gm/dl (3.4-5.0); BUN Creatinine Ratio 10.7 (10-20); Bilirubin Direct 1.9 mg/dl (0-0.2); Calcium 7.8 mg/dl (8.5-10.1); Creatinine Clr Calc Pharmacy 73.2 ml/min; Magnesium 1.6 mg/dl (1.7-2.4); Potassium 3.6 mmol/L (3.5-5.1); Total Protein 5.4 gm/dl (6.0-8.3)
[2022-01-12] MEDS: LANTUS PER UNIT CHARGE SQ SCH (09:21)
[2022-01-12] MEDS: INSULIN ASPART PER UNIT SC SCH ×4 (09:21→22:15)
[2022-01-12] MEDS: PREGABALIN 100 MG CAP PO SCH ×2 (09:22→22:23)
--- NOTE | 2022-01-12 09:42 | XRay Report ---
XR chest 1V portable HISTORY: Hypoxia. COMPARISON: Chest 08/03/2007. FINDINGS: No pneumothorax. Trace bilateral pleural effusions are noted. The cardiac silhouette is nor mal in size. There is diffuse interstitial/vascular thickening. Otherwise, no focal lung consolidatio ns. IMPRESSION: Diffuse interstitial/vascular thickening with trace bilateral pleural effusions. This likely represen ts mild pulmonary edema. ACT 112: Negative or not required by law. Electronically signed by: Christian Tomlinson M.D. 01/12/2022 9:41 AM
--- NOTE | 2022-01-12 10:18 | Electrocardiogram Report ---
Test Reason : Blood Pressure : / mmHG Vent. Rate : 088 BPM Atrial Rate : 088 BPM P-R Int : 154 ms QRS Dur : 138 ms QT Int : 376 ms P-R-T Axes : 051 045 024 degrees QTc Int : 454 ms Poor data quality, interpretation may be adversely affected Normal sinus rhythm Right bundle branch block Abnormal ECG When compared with ECG of 03-AUG-2007 03:12, Right bundle branch block is now Present Confirmed by iH Hadley ([id number]) on 01/12/2022 10:18:03 AM Referred By: REFERRED SELF Confirmed By:Hi Hadley
[2022-01-12] MEDS ORDERED: MAGNESIUM SULFATE / D5W 1 GM/100 ML BAG IV ONE (12:58)
[2022-01-12] MEDS: MoRPHine SULFATE 2 MG/ML CARP IV PRN (13:07)
--- NOTE | 2022-01-12 14:42 | Hospitalist Progress Note ---
Date of Service January 12, 2022 Assessment & Plan (1) Acute cholecystitis: (2) Acute gallstone pancreatitis: Plan: Present on admission with severe upper epigastric pain radiating to mid back associated with nausea/dry heaves CT abd/pelvis showed Pericholecystic stranding and stranding within the angelica hepatis. Mild stranding adjacent to the pancreatic head and second portion of the duodenum. Lipase on admission 2500, then normalized today at 42 Elevated Liver enzymes on admission with AST 334 and ALT 324, trending down with AST 91 and ALT 194 MRCP showed No biliary ductal dilatation. No common bile duct calculi identified. Trace fluid adjacent to the pancreatic head and second portion of the duodenum which favors acute pancreatitis. Lipase normalized and liver enzymes trending down today possible pt passed a stone Surgery on board S/P Laparoscopic cholecystectomy performed on 01/11 No postop complication Continue pain control and IVF Continue IV Zosyn since pt continue to have fever Keep NPO for today for possible ERCP Continue monitor closely (3) Transaminitis: (4) Hyperbilirubinemia: Plan: Elevated Bilirubin from 1.2 to 3 Elevated Liver enzymes on admission with AST 334 and ALT 324, trending down with AST 91 and ALT 194 Gastro on board plan for ERCP today Continue monitor Fever Tmax 39.2 Continue IV Zosyn for now Check Blood cx Hypomagnesemia Mg 1.6 today Mg replaced Continue monitor Diabetes type 2 Most recent Hba1c 6.1 Continue to hold oral diabetes med Continue Novolog sliding scale Continue monitor BS closely while on Lantus since pt is NPO currently DVT prophylaxis: SCDs planning for surgery Full code Admission and Anticipated Discharge Date Admission Date: January 10, 2022 Subjective Pt was seen and examined for follow up of abdominal pain Sitting in bed with no acute distress He said that his pain control Pt is scheduled for ERCP later due to increase in bilirubin Denies any chest pain, palpitation, dizziness and SOB Review of Systems Review of Systems: All systems reviewed & are unremarkable except as noted in Subjective Physical Exam Physical Exam: General- No acute distress Head- atraumatic Eyes- PERRL, EOMI, ENT- oropharynx clear Neck- supple, no JVD Lungs- clear to auscultation Heart- regular rhythm; no murmur Abdomen- normal bowel sounds, + tender Extremities- no calf tenderness, +RLE AKA noted Neuro- alert, oriented x 3, PERRL, EOMI; no facial palsy; no dysarthria Skin- warm & dry Results & Data Results & Data ([facility]) Vital Signs (Past 12 Hours) Vital Signs Temp Pulse Resp BP Pulse Ox O2 Del Method 01/12/22 11:09 37.6 C H 95 H 18 105/63 95 Room Air 01/12/22 07:25 38.5 C H 106 H 18 125/70 96 Room Air 01/12/22 03:45 36.6 C 75 18 97/59 L 94 Room Air
[2022-01-12] MEDS ORDERED: DEXAMETHASONE SOD INJ 4 MG/ML VIAL ONE (14:58)
[2022-01-12] MEDS ORDERED: PROPOFOL IV EMULSION 10 MG/ML 20 ML VIAL IV ONE (14:58)
[2022-01-12] MEDS ORDERED: ONDANSETRON INJ 2 MG/ML 2 ML VIAL ONE (14:58)
[2022-01-12] MEDS ORDERED: MIDAZOLAM HCL 1 MG/ML 2ML VIAL ONE (14:59)
[2022-01-12] MEDS ORDERED: fentaNYL citrate 100 MCG/2 ML VIAL ONE (14:59)
--- NOTE | 2022-01-12 15:27 | History & Physical Bridge Note ---
Date of Service January 12, 2022 History & Physical Bridge Note I have examined the patient, reviewed the History & Physical and in the interval since the performance of the History & Physical I have noted the following changes of clinical significance: no changes noted ERCP today for possible cholangitis. Patient was explained in detail regarding risks, benefits, limitations and alternatives of the above endoscopic procedure. Risks of intravenous sedation used for procedure were also explained. Risks include, but not limited to perforation, bleeding, infection, respiratory distress, cardiac arrest and . Patient is also aware about the possibility of missed lesion. Patient's questions were answered. The patient verbalized understanding the information and agreed to undergo the procedure.
[2022-01-12] MEDS ORDERED: INDOMETHACIN 50 MG SUPP PR ONE (15:43)
[2022-01-12] MEDS ORDERED: fentaNYL citrate 100 MCG/2 ML VIAL IV PRN (16:01)
[2022-01-12] MEDS ORDERED: ONDANSETRON INJ 2 MG/ML 2 ML VIAL IV PRN (16:01)
[2022-01-12] MEDS ORDERED: ePHEDrine sulfate 50 MG/ML AMP IV PRN (16:01)
[2022-01-12] MEDS ORDERED: ATROPINE SULFATE 0.1 MG/ML 10ML SYR IV PRN (16:01)
--- NOTE | 2022-01-12 16:01 | Anesthesiology Consultation ---
Date of Service January 12, 2022 Assessment & Plan Chart Review Chart Review: Acceptable Risk for Surgery and Patient NOT seen in Pre Admission Testing Consults Requested none ASA ASA3 Proposed Anesthesia Anesthesia Type: General Risk / Benefits Reviewed With: PT / POA / Parent / Guardian, Accepts Plan and Informed Consent Obtained History Surgery Operation Date: 01/11/22 16:00 Proposed Procedures p Laparoscopic Cholecystectomy - Cedric Treviño MD Operation Date: 01/12/22 14:20 Proposed Procedures p Endoscopic Retrograde Cholangiopancreatogram - Arnulfo Miller MD Height/Weight Height: 5 ft 7 in Weight: 95.1 kg Allergies Allergy/AdvReac Type Severity Reaction Status Date / Time bupropion Allergy Severe HIVES Verified 01/10/22 16:27 bee venom protein (honey bee) Allergy Intermediate hives, Verified 01/10/22 16:27 lips swell Medications Home Medications Medication Instructions Recorded Confirmed Last Taken allopurinol 300 mg tablet 300 mg PO DAILY 01/10/22 01/10/22 Unknown aspirin 81 mg tablet,delayed 81 mg PO DAILY 01/10/22 01/10/22 Unknown release atorvastatin 40 mg tablet 40 mg PO DAILY 01/10/22 01/10/22 Unknown colchicine 0.6 mg tablet (Colcrys) 0.6 mg PO BID PRN gout attack 01/10/22 01/10/22 Unknown cyanocobalamin (vitamin B-12) 1,000 mcg PO DAILY 01/10/22 01/10/22 Unknown 1,000 mcg tablet (Vitamin B-12) ferrous sulfate 325 mg (65 mg 325 mg PO DAILY 01/10/22 01/10/22 Unknown iron) tablet (iron) fluoride (sodium) 1.1 % dental 1 applic PO DIRECTED 01/10/22 01/10/22 Unknown cream (SF 5000 Plus) lisinopril 10 mg tablet 10 mg PO DAILY 01/10/22 01/10/22 Unknown metformin 500 mg tablet 1,000 mg PO BID 01/10/22 01/10/22 Unknown pregabalin 100 mg capsule 100 mg PO BID 01/10/22 01/10/22 Unknown sertraline 50 mg tablet 125 mg PO DAILY 01/10/22 01/10/22 Unknown tramadol 50 mg tablet 100 mg PO Q6 PRN Pain 01/10/22 01/10/22 Unknown valacyclovir 1 gram tablet 2 mg PO .[id number] 01/10/22 01/10/22 Unknown Active Medications Generic Name Dose Route Start Last Admin Trade Name Freq PRN Reason Stop Dose Admin Acetaminophen 650 mg 01/10/22 17:14 01/12/22 05:53 Acetaminophen 325 Mg Tab PO 02/09/22 17:14 650 mg Q6H PRN Administration pain or fever Allopurinol 300 mg 01/11/22 09:00 01/12/22 09:12 Allopurinol 300 Mg Tab PO 02/10/22 08:59 300 mg DAILY APRYL Administration Atorvastatin Calcium 40 mg 01/11/22 09:00 01/12/22 09:12 Atorvastatin 40 Mg Tab PO 02/10/22 08:59 40 mg DAILY APRYL Administration Cyanocobalamin 1,000 mcg 01/11/22 09:00 01/12/22 09:12 Cyanocobalamin (B-12) 500 Mcg Tablet PO 02/10/22 08:59 1,000 mcg DAILY APRYL Administration Piperacillin Sod/Tazobactam 120 mls @ 30 mls/hr 01/10/22 21:30 01/12/22 14:22 Sod 4.5 gm/ Dextrose IV 01/20/22 21:29 30 mls/hr Q8H APRYL Administration Protocol Sodium Chloride 1,000 mls @ 60 mls/hr 01/10/22 17:30 01/11/22 23:48 Nss 1000ml IV 0 mls/hr .[id number] APRYL Infusion Insulin Aspart 0 units 01/11/22 16:30 01/12/22 12:56 Insulin Aspart Per Unit SC 02/10/22 16:29 Not Given ACHS APRYL Lisinopril 10 mg 01/11/22 09:00 01/12/22 09:12 Lisinopril 10 Mg Tab PO 02/10/22 08:59 10 mg DAILY APRYL Administration Morphine Sulfate 2 mg 01/10/22 17:14 01/12/22 13:07 Morphine Sulfate 2 Mg/Ml Carp IV 01/24/22 17:13 2 mg Q6H PRN Administration Pain Pregabalin 100 mg 01/10/22 21:00 01/12/22 09:22 Pregabalin 100 Mg Cap PO 02/09/22 20:59 100 mg BID APRYL Administration Sertraline HCl 125 mg 01/11/22 09:00 01/12/22 09:12 Sertraline Hcl 50 Mg Tablet PO 02/10/22 08:59 125 mg DAILY APRYL Administration Tramadol HCl 100 mg 01/10/22 20:04 01/11/22 20:57 Tramadol Hcl 50 Mg Tablet PO 02/09/22 20:03 100 mg Q6H PRN Administration Pain NPO Date Last Intake of Fluids: 01/12/22 Time Last Intake of Fluids: 09:00 Last Intake of Fluids Comment: clear liquids Date Last Intake of Solids: 01/09/22 Time Last Intake of Solids: 15:00 Past Medical History Medical History (Updated 01/12/22 @ 15:08 by Christopher Ronquillo MD) Depression Gout Hyperlipemia Opioid abuse, in remission Severe obstructive sleep apnea Type 2 diabetes mellitus Exercise / Class Metabolic Activity II 4-5 Yardwork/Stairs/Walk up hill Past Family History Family History Father Alzheimer disease Prostate cancer Mother Congestive heart failure Gout Past Surgical History Surgical History History of appendectomy History of hernia repair History of lumbar laminectomy History of right above knee amputation History of sinus surgery Past Anesthesia History No Hx of Anesthesia Complications and No Family Hx of Anesthesia Complications History of PONV No Hx of PONV and No Hx of Motion Sickness Social History Smoking Status: Former smoker tobacco type: cigarettes Hx Alcohol Use: No Hx Substance Use: No substance use type: does not use Physical Exam Vital Signs Last Vital Signs Temp 39.5 C H 01/12/22 15:17 Pulse 106 H 01/12/22 15:17 Resp 17 01/12/22 15:17 BP 109/55 L 01/12/22 15:17 Pulse Ox 92 01/12/22 15:17 O2 Del Method 01/12/22 15:17 O2 Flow Rate 2.0 01/11/22 22:14 ENMT Mouth: no dentition abnormality Thyromental Distance: > or= 3.5 Finger Breadths Mallampati Class: II Neck normal visual inspection and + facial hair Respiratory normal respiratory effort Auscultation: lungs clear to auscultation bilaterally Cardiovascular Rate/Rhythm: regular rate and regular rhythm Psychiatric Orientation: alert Testing Laboratory Results 01/12/22 08:01 01/12/22 08:01 Urine Color Dark Yellow 01/10/22 14:36 Urine Appearance Clear (Clear) 01/10/22 14:36 Urine pH 6.0 (4.5-7.5) 01/10/22 14:36 Ur Specific [place] 1.020 (1.000-1.030) 01/10/22 14:36 Urine Protein 1+ (Negative) H 01/10/22 14:36 Urine Glucose (UA) 1+ (Negative) H 01/10/22 14:36 Urine Ketones Negative (Negative) 01/10/22 14:36 Urine Nitrite Negative (Negative) 01/10/22 14:36 Ur Leukocyte Esterase Negative (Negative) 01/10/22 14:36 Urine WBC (Auto) 1-5 /hpf (0-5) 01/10/22 14:36 Urine RBC (Auto) 0-4 /hpf (0-4) 01/10/22 14:36 U Hyaline Cast (Auto) 0 /lpf (0-5) 01/10/22 14:36 U Epithel Cells (Auto) 0-5 /lpf (0-5) 01/10/22 14:36 Urine Bacteria (Auto) Negative (Negative) 01/10/22 14:36 01/12/22 01/12/22 01/12/22 15:18 11:58 08:26 POC Glucose 153 H 150 H 147 H
--- NOTE | 2022-01-12 16:04 | Operative Report ---
Post Operative Report Pre & Post Diagnosis Operation Date: 01/11/22 16:00 Pre-Op Diagnosis: Right Upper Quadrant Pain Post-Op Diagnosis: Right Upper Quadrant Pain Operation Date: 01/12/22 14:20 Pre-Op Diagnosis: RUQ PAIN Post-Op Diagnosis: ercp I identified the patient and participated in the time-out.: Yes Procedure Operation Date: 01/11/22 16:00 Actual Procedures p Laparoscopic Cholecystectomy - Cedric Treviño MD Operation Date: 01/12/22 14:20 Actual Procedures p Endoscopic Retrograde Cholangiopancreato - Arnulfo Miller MD Surgeon Arnulfo Miller MD Technical Publications Manager None Estimated Blood Loss 10 Findings See Below (Normal cholangiogram) Specimens None Description of Procedure ERCP I attest to the content of the Intraoperative Record and any orders documented therein. Any exceptions are noted below.
--- NOTE | 2022-01-12 16:13 | GI REPORT ---
Patient Name: Tejinder Huitron Procedure Date: 01/12/2022 3:48 PM Date of : 1955 Admit Type: Inpatient Age: 66 Gender: Male Attending MD: Arnulfo Miller MD Procedure: ERCP Providers: Arnulfo Miller MD Referring MD: Cedric KO Indications: Evaluation and possible treatment of bile duct stone(s), Elevated liver enzymes Medicines: General Anesthesia Complications: No immediate complications. Estimated Blood Loss: Estimated blood loss: none. Procedure: Pre-Anesthesia Assessment: - Prior to the procedure, a History and Physical was performed, and patient medications, allergies and sensitivities were reviewed. The patient's tolerance of previous anesthesia was reviewed. - The risks and benefits of the procedure and the sedation options and risks were discussed with the patient. All questions were answered and informed consent was obtained. - Patient identification and proposed procedure were verified prior to the procedure by the physician and the nurse. The procedure was verified in the procedure room. - Pre-procedure physical examination revealed no contraindications to sedation. After obtaining informed consent, the scope was passed under direct vision. Throughout the procedure, the patient's blood pressure, pulse, and oxygen saturations were monitored continuously. The Duodenoscope was introduced through the mouth, and advanced to the duodenum and used to inject contrast into the bile duct. The ERCP was accomplished without difficulty. The patient tolerated the procedure well. Findings: A digital program manager film of the abdomen was obtained. Surgical clips, consistent with a previous cholecystectomy, were seen in the area of the right upper quadrant of the abdomen. The esophagus was successfully intubated under direct vision. The scope was advanced to a normal major papilla in the descending duodenum without detailed examination of the pharynx, larynx and associated structures, and upper GI tract. The upper GI tract was grossly normal. A 0.035 inch straight standard wire was passed into the biliary tree. The Fusion OMNI sphincterotome was passed over the guidewire and the bile duct was then deeply cannulated. Contrast was injected. I personally interpreted the bile duct images. Ductal flow of contrast was adequate. Image quality was adequate. Contrast extended to the main bile duct. Opacification of the entire biliary tree except for the gallbladder was successful. The maximum diameter of the ducts was 6 mm. Biliary sphincterotomy was made with a monofilament traction (standard) sphincterotome using ERBE electrocautery. There was no post-sphincterotomy bleeding. The biliary tree starting at the bifurcation and the cystic duct were swept with a 12 and 15 mm balloon. Nothing was found. Indomethacin 100 mg was given via suppository to decrease the risk of post-ERCP pancreatitis (PEP). Impression: - Normal cholangiogram. No stones or bile leak seen. - A biliary sphincterotomy was performed. - The biliary tree was swept and nothing was found. Recommendation: - [facility] to [facility] care. - If fever persists then consider re-imaging the patient. - Monitor LFTs. - Continue IV ABx. Arnulfo Miller MD 01/12/2022 4:12:35 PM This report has been signed electronically. Note Initiated On: 01/12/2022 3:48 PM Number of Addenda: 0 I attest to the content of the Intraoperative Record and orders documented therein, exceptions below {[id number]}
[2022-01-12] MEDS ORDERED: METOPROLOL TARTRATE 1 MG/ML VIAL IV ONE (16:30)
[2022-01-12] MEDS ORDERED: METOPROLOL TARTRATE 1 MG/ML VIAL IV STA (16:31)
--- NOTE | 2022-01-12 16:57 | Anesthesiology Progress Note ---
Date of Service January 12, 2022 Anesthesia Post Procedure Vital Signs Vital Signs: Temp Pulse Pulse Resp BP BP Pulse Ox 01/12/22 16:46 93 H 26 H 127/58 L 98 01/12/22 16:35 101 H 22 120/56 L 94 01/12/22 16:25 110 H 23 123/61 96 01/12/22 16:16 39.9 C H 108 H 18 109/49 L 95 01/12/22 15:17 39.5 C H 106 H 17 109/55 L 92 01/12/22 11:09 37.6 C H 95 H 18 105/63 95 01/12/22 07:25 38.5 C H 106 H 18 125/70 96 01/12/22 03:45 36.6 C 75 18 97/59 L 94 01/11/22 21:00 01/12/22 01:57 36.8 C 93 H 93 01/11/22 23:20 38.3 C H 01/11/22 22:35 39.2 C H 88 L 01/11/22 22:14 38.0 C H 92 H 18 133/71 98 01/12/22 00:33 38.1 C H 92 01/11/22 19:28 37.3 C 80 20 108/62 98 01/11/22 17:45 36.8 C 88 20 110/74 94 O2 Del Method O2 Flow Rate 01/12/22 16:46 Nasal Cannula 3 01/12/22 16:35 Nasal Cannula 3 01/12/22 16:25 Nasal Cannula 4 01/12/22 16:16 Room Air 4 01/12/22 15:17 Room Air 01/12/22 11:09 Room Air 01/12/22 07:25 Room Air 01/12/22 03:45 Room Air 01/11/22 21:00 Nasal Cannula 2 01/12/22 01:57 Room Air 01/11/22 23:20 01/11/22 22:35 Room Air 01/11/22 22:14 Nasal Cannula 2.0 01/12/22 00:33 Room Air 01/11/22 19:28 Nasal Cannula 2 01/11/22 17:45 Pain Intensity Abdomen: Pain Intensity: 3 Transfer of Care Handoff Completed per policy Notes Mental Status: alert / awake / arousable Patient Amnestic to Procedure: Yes Nausea / Vomiting: adequately controlled Pain: adequately controlled Airway Patency, RR, SpO2: stable & adequate BP & HR: stable & adequate Hydration State: stable & adequate Anesthetic Complications: no major complications apparent and Pt Satisfied with anesthetic care Notes: The patient's temperature was found to be 37.9 by oral thermometer. He is awake and comfortable.
--- NOTE | 2022-01-12 17:34 | Fluoroscopy Report ---
FL ERCP biliary ductal CLINICAL HISTORY: ERCP IN OR TECHNIQUE: 11 views were obtained with the C-arm in the OR with the above procedure. Total fluoroscop y time was 1 minute 22 seconds. Total skin dose was 39.7 mGy. Comparison: None available at the time of this dictation. FINDINGS/IMPRESSION: Intraoperative images were obtained of ERCP Please correlate with intraoperative fluoroscopy and operative report. ACT 112: Negative or not required by law. Electronically signed by: Shad Sal M.D. 01/12/2022 5:33 PM
[2022-01-12] MEDS ORDERED: guaiFENesin 200 MG TAB PO PRN (19:10)
[2022-01-13] MEDS ORDERED: ALBUMIN 25% 100 mL 25 GM/100 ML VIAL IV ONE ×2 (00:48→03:17)
[2022-01-13 01:33] LABS: Echinocytes 2+; Eosinophils # (auto) 0.26 K/uL (0-0.50); Eosinophils % (auto) 3.4 %; Hematocrit (blood only) 37.6 % (40.1-51.0); Hemoglobin 12.9 g/dl (14.0-18.0); Immature Granulocytes # (auto) 0.05 K/uL (0.00-0.02); Immature Granulocytes % (auto) 0.7 %; Lymphocytes # (auto) 0.08 K/uL (1.2-3.4); Mean Corpuscular Hemoglobin 30.2 pg (25.0-34.0); Mean Corpuscular Hgb Conc 34.3 g/dL (32.0-36.0); Mean Corpuscular Volume 88.1 fL (80.0-100.0); Monocytes # (auto) 0.26 K/uL (0.24-0.82); Monocytes % (auto) 3.4 %; Neutrophils # (auto) 6.98 K/uL (1.4-6.5); Neutrophils % (auto) 91.5 %; Platelet Count 133 K/uL (130-400); Platelet Estimate Normal (Normal); RDW Coefficient of Variation 13.2 % (11.5-14.5); RDW Standard Deviation 42.8 fL (36.4-46.3); Red Blood Count 4.27 M/uL (4.63-6.08); White Blood Count 7.63 K/ul (4.8-10.8)
[2022-01-13 01:47] LABS: Albumin Globulin Ratio 1.9 (0.9-2); Bilirubin,Total 4.2 mg/dl (0.2-1.0); Calcium 7.5 mg/dl (8.5-10.1); Creatinine Clr Calc Pharmacy 40.8 ml/min; Est GFR (African American) 39.5 ml/min; Globulin 1.6 gm/dl (2.5-4.0); Magnesium 1.8 mg/dl (1.7-2.4); Potassium 3.2 mmol/L (3.5-5.1); Total Protein 4.6 gm/dl (6.0-8.3)
[2022-01-13] MEDS ORDERED: POTASSIUM CHLORIDE CRTAB 20 MEQ TABCR PO STA (02:29)
[2022-01-13] MEDS ORDERED: MAGNESIUM SULFATE / D5W 1 GM/100 ML BAG IV ONE (02:29)
[2022-01-13] MEDS: PIPERACILLIN/TAZOBACTAM 4.5 GM in DEXTROSE 5% 100 ML IV SCH ×2 (05:38→13:14)
[2022-01-13 05:40] LABS: Appearance Urine Cloudy (Clear); Bacteria Urine Automated Negative (Negative); Blood Urine Negative (Negative); Color Urine Dark Yellow; Epithelial Cell Urine Auto >30 /lpf (0-5); Glucose Urine UA Negative (Negative); Ketones Urine Trace (Negative); Leukocyte Esterase Urine 1+ (Negative); Nitrite Urine Positive (Negative); Protein Urine 2+ (Negative); RBC Urine Automated 0-4 /hpf (0-4); Specific Gravity Urine 1.036 (1.000-1.030); Urobilinogen Urine Negative (Negative)
[2022-01-13 05:42] LABS: Bilirubin Urine 2+ (Negative)
--- NOTE | 2022-01-13 06:38 | XRay Report ---
XR chest 1V portable HISTORY: 66 years-old Male renal failure acute renal failure COMPARISON: Chest radiograph 01/12/2022 TECHNIQUE: Portable AP view of the chest FINDINGS: Cardiac silhouette is enlarged. Pulmonary vascular congestion with decreased interstitial coarsening. No pneumothorax or large pleural effusion. The right lateral costophrenic angle is partially exclude d from the film. Bones appear grossly intact. IMPRESSION: Cardiomegaly and pulmonary vascular congestion with decreased pulmonary edema. ACT 112: Negative or not required by law. The above report was generated using voice recognition software. It may contain grammatical, syntax o r spelling errors. Electronically signed by: Norman Berry M.D. 01/13/2022 6:37 AM
--- NOTE | 2022-01-13 07:52 | Communication Note ---
Date of Service: January 13, 2022 BP noted to be 90s as per RN last night. Serum creatinine 2.01 from normal baseline AP ARF, hypovolemia Check UA IV albumin (colloid preferred over crystalloid given pulmonary congestion on recent CXR) Hold lisinopril for now
[2022-01-13 08:08] LABS: BUN Creatinine Ratio 7.8 (10-20); Calcium 7.7 mg/dl (8.5-10.1); Creatinine Clr Calc Pharmacy 37.8 ml/min; Potassium 3.6 mmol/L (3.5-5.1)
[2022-01-13 08:45] LABS: Albumin Level 3.5 gm/dl (3.4-5.0); Bilirubin Direct 3.1 mg/dl (0-0.2); Bilirubin,Total 4.3 mg/dl (0.2-1.0)
--- NOTE | 2022-01-13 08:50 | Gastroenterology Progress Note ---
Date of Service January 13, 2022 Assessment & Plan (1) Transaminitis: Plan: 66 year old male with history of CCY with elevated LFTs, he underwent ERCP yesterday for suspected biliary obstruction. The examination was normal, no stones or sludge were seen and no bile leak was identified. Repeat LFTs. No GI contraindication to diet Would continue IV ABX If fever returns, repeat imaging Admission and Anticipated Discharge Date Admission Date: January 10, 2022 Supervising Physician Co-Signing Physician Notes Attg add: Pt with persistent fever and hypotension on Zosyn. Blood cx remain neg. Transaminases falling, suggestive of passed stone, although bili increased to 4. Creat increased overnight. Increased bili likely due to sepsis, although source of sepsis unclear. Vol resuscitation per primary service Unclear why persistent fever - consider broaden abx coverage to Meropenem, will defer to primary service -- recommend ID consult. Would recommend repeat imaging. FOllow LFT's. Subjective Pt was seen and evaluated, chart reviewed. S/P ERCP yesterday. No stone, sludge or stricture noted. LFTs this AM pending Review of Systems Review of Systems: All systems reviewed & are unremarkable except as noted in HPI & below Physical Exam Constitutional: WD/WN, vitals as above Respiratory: normal respiratory effort, lungs clear to auscultation Cardiovascular: Rate/Rhythm: regular rate and regular rhythm Gastrointestinal (Abdomen): normal bowel sounds, soft, nontender, no hepatosplenomegaly Skin: no rashes, warm and dry Results & Data ([facility]) Vital Signs (Past 12 Hours) Vital Signs Temp Pulse Pulse Resp BP Pulse Ox O2 Del Method 01/13/22 07:12 36.5 C 85 18 97/62 L 94 Room Air 01/13/22 02:42 36.4 C L 86 18 95/62 L 96 Room Air 01/12/22 21:50 36.7 C 79 20 91/52 L 97 Room Air
[2022-01-13] MEDS: SERTRALINE HCL 50 MG TABLET PO SCH (08:53)
[2022-01-13] MEDS: CYANOCOBALAMIN (B-12) 500 MCG TABLET PO SCH (08:53)
[2022-01-13] MEDS: allopurinoL 300 MG TAB PO SCH (08:53)
[2022-01-13] MEDS: ATORVASTATIN 40 MG TAB PO SCH (08:53)
[2022-01-13] MEDS: INSULIN ASPART PER UNIT SC SCH ×4 (08:55→21:36)
[2022-01-13] MEDS: LANTUS PER UNIT CHARGE SQ SCH (08:55)
[2022-01-13 08:57] LABS: Hematocrit (blood only) 36.4 % (40.1-51.0); Hemoglobin 12.5 g/dl (14.0-18.0); Mean Corpuscular Hemoglobin 30.5 pg (25.0-34.0); Mean Corpuscular Hgb Conc 34.3 g/dL (32.0-36.0); Mean Corpuscular Volume 88.8 fL (80.0-100.0); Mean Platelet Volume 9.1 fL (9.4-12.4); Platelet Count 116 K/uL (130-400); RDW Coefficient of Variation 13.3 % (11.5-14.5); RDW Standard Deviation 43.7 fL (36.4-46.3); White Blood Count 6.56 K/ul (4.8-10.8)
[2022-01-13] MEDS: PREGABALIN 100 MG CAP PO SCH ×2 (08:58→21:35)
[2022-01-13] MEDS: SODIUM CHLORIDE 0.9% 1000ML 1,000 ML IV SCH ×2 (09:43→23:08)
[2022-01-13] MEDS: ACETAMINOPHEN 325 MG TAB PO PRN ×2 (09:49→21:35)
--- NOTE | 2022-01-13 11:44 | Surgery Progress Note ---
Date of Service January 13, 2022 Assessment & Plan (1) Acute gallstone pancreatitis: (2) Acute cholecystitis: Plan POD # 2 s/p laparoscopic cholecystectomy POD # 1 s/p ERCP - afebrile today (previously febrile with tmax of 39.9 01/12/2022) - leukocytosis resolved - T. bili and d. bili increasing - LFTS and alk phos improving - ERCP negative for common bile duct stone or stricture, no stent placed Plan: Unsure etiology of rising t.bili and d. bili. ERCP was negative for stone or stricture. Would like to repeat CT scan of abd/pelvis to further evaluate however his creatinine has increased to 2.[address] Treviño, GI team, and Dr. Ronquillo. Will plan to repeat labs in morning and if creatinine improves will order CT scan Continue clear liquids for now Continue IV antibiotics pain management as needed Incentive spirometry DVT prophylaxis Discussed with Dr. Treviño who agrees with above and is to evaluate patient later today. Admission and Anticipated Discharge Date Admission Date: January 10, 2022 Subjective feeling better today abdominal pain is less, mostly at incision sites tolerating clear liquids no n,v passing gas and had a bowel movement today no chest pain or shortness of breath Physical Exam Constitutional: WD/WN, vitals as above + obese, cooperative and comfortable; no acute distress Neck: normal visual inspection and trachea midline Respiratory: normal respiratory effort; no respiratory distress and no labored breathing Gastrointestinal (Abdomen): Inspection/Auscultation: abdomen normal to inspection, + abdominal surgical incision (clean/dry/intact with dermabond) and + hypoactive bowel sounds; abdomen not distended and + abnormal bowel sounds Percussion/Palpation: + abdomen tender (at incision sites appropriate postop) and abdomen soft; no guarding and abdomen not rigid Skin: no rashes, warm and dry no jaundice Psychiatric: Orientation: alert and oriented x 3 Results & Data ([facility]) Vital Signs (Past 12 Hours) Vital Signs Temp Pulse Pulse Resp BP Pulse Ox O2 Del Method 01/13/22 08:30 Room Air 01/13/22 09:54 36.6 C 01/13/22 07:12 36.5 C 85 18 97/62 L 94 Room Air 01/13/22 02:42 36.4 C L 86 18 95/62 L 96 Room Air Laboratory Results 09/01/13/22 01/13/22 Range/Units 11:36 08:14 07:23 WBC 6.56 (4.8-10.8) K/ul RBC 4.10 L (4.63-6.08) M/uL Hgb 12.5 L (14.0-18.0) g/dl Hct 36.4 L (40.1-51.0) % MCV 88.8 (80.0-100.0) fL MCH 30.5 (25.0-34.0) pg MCHC 34.3 (32.0-36.0) g/dL RDW Std Deviation 43.7 (36.4-46.3) fL RDW Coeff of Rashi 13.3 (11.5-14.5) % Plt Count 116 L (130-400) K/uL MPV 9.1 L (9.4-12.4) fL Immature Gran % (Auto) % Neut % (Auto) % Lymph % (Auto) % [place] % (Auto) % Eos % (Auto) % Baso % (Auto) % Neut # (Auto) (1.4-6.5) K/uL Lymph # (Auto) (1.2-3.4) K/uL [place] # (Auto) (0.24-0.82) K/uL Eos # (Auto) (0-0.50) K/uL Baso # (Auto) (0-0.2) K/uL Immature Gran # (Auto) (0.00-0.02) K/uL Platelet Estimate (Normal) Echinocytes Sodium (136-145) mmol/L Potassium (3.5-5.1) mmol/L Chloride (98-107) mmol/L Carbon Dioxide (21-32) mmol/L Anion Gap (3-11) BUN (6-23) mg/dl Creatinine (0.6-1.4) mg/dl Est Cr Clr Drug Dosing ml/min Est GFR ( Amer) ml/min Est GFR (Non-Af Amer) ml/min BUN/Creatinine Ratio (10-20) Glucose (70-99(Fasting)) mg/dl POC Glucose 178 H 154 H (70-99) mg/dl Lactate (0.4-2.0) mmol/L Calcium (8.5-10.1) mg/dl Magnesium (1.7-2.4) mg/dl Total Bilirubin (0.2-1.0) mg/dl Direct Bilirubin (0-0.2) mg/dl AST (13-39) U/L ALT (7-52) U/L Alkaline Phosphatase (34-104) U/L Total Protein (6.0-8.3) gm/dl Albumin (3.4-5.0) gm/dl Globulin (2.5-4.0) gm/dl Albumin/Globulin Ratio (0.9-2) Urine Color Urine Appearance (Clear) Urine pH (4.5-7.5) Ur Specific [place] (1.000-1.030) Urine Protein (Negative) Urine Glucose (UA) (Negative) Urine Ketones (Negative) Urine Blood (Negative) Urine Nitrite (Negative) Urine Bilirubin (Negative) Urine Urobilinogen (Negative) Ur Leukocyte Esterase (Negative) Urine WBC (Auto) (0-5) /hpf Urine RBC (Auto) (0-4) /hpf U Hyaline Cast (Auto) (0-5) /lpf U Epithel Cells (Auto) (0-5) /lpf Urine Bacteria (Auto) (Negative) Ur Renal Epithelial Cell Urine Yeast 01/13/22 01/13/22 01/13/22 Range/Units 07:22 07:22 05:00 WBC (4.8-10.8) K/ul RBC (4.63-6.08) M/uL Hgb (14.0-18.0) g/dl Hct (40.1-51.0) % MCV (80.0-100.0) fL MCH (25.0-34.0) pg MCHC (32.0-36.0) g/dL RDW Std Deviation (36.4-46.3) fL RDW Coeff of Rashi (11.5-14.5) % Plt Count (130-400) K/uL MPV (9.4-12.4) fL Immature Gran % (Auto) % Neut % (Auto) % Lymph % (Auto) % [place] % (Auto) % Eos % (Auto) % Baso % (Auto) % Neut # (Auto) (1.4-6.5) K/uL Lymph # (Auto) (1.2-3.4) K/uL [place] # (Auto) (0.24-0.82) K/uL Eos # (Auto) (0-0.50) K/uL Baso # (Auto) (0-0.2) K/uL Immature Gran # (Auto) (0.00-0.02) K/uL Platelet Estimate (Normal) Echinocytes Sodium 128 L (136-145) mmol/L Potassium 3.6 (3.5-5.1) mmol/L Chloride 96 L (98-107) mmol/L Carbon Dioxide 24 (21-32) mmol/L Anion Gap 8 (3-11) BUN 17 (6-23) mg/dl Creatinine 2.17 H (0.6-1.4) mg/dl Est Cr Clr Drug Dosing 37.8 ml/min Est GFR ( Amer) 36.0 ml/min Est GFR (Non-Af Amer) 31.0 ml/min BUN/Creatinine Ratio 7.8 L (10-20) Glucose 151 H (70-99(Fasting)) mg/dl POC Glucose (70-99) mg/dl Lactate (0.4-2.0) mmol/L Calcium 7.7 L (8.5-10.1) mg/dl Magnesium (1.7-2.4) mg/dl Total Bilirubin 4.3 H (0.2-1.0) mg/dl Direct Bilirubin 3.1 H (0-0.2) mg/dl AST 46 H (13-39) U/L ALT 115 H (7-52) U/L Alkaline Phosphatase 138 H (34-104) U/L Total Protein 5.0 L (6.0-8.3) gm/dl Albumin 3.5 (3.4-5.0) gm/dl Globulin (2.5-4.0) gm/dl Albumin/Globulin Ratio (0.9-2) Urine Color Dark Yellow Urine Appearance Cloudy A (Clear) Urine pH 5.0 (4.5-7.5) Ur Specific [place] 1.036 H (1.000-1.030) Urine Protein 2+ H (Negative) Urine Glucose (UA) Negative (Negative) Urine Ketones Trace H (Negative) Urine Blood Negative (Negative) Urine Nitrite Positive A (Negative) Urine Bilirubin 2+ H (Negative) Urine Urobilinogen Negative (Negative) Ur Leukocyte Esterase 1+ H (Negative) Urine WBC (Auto) 10-30 H (0-5) /hpf Urine RBC (Auto) 0-4 (0-4) /hpf U Hyaline Cast (Auto) 1-5 (0-5) /lpf U Epithel Cells (Auto) >30 H (0-5) /lpf Urine Bacteria (Auto) Negative (Negative) Ur Renal Epithelial Cell Not Reportable Urine Yeast Not Reportable 01/13/22 01/13/22 01/13/22 Range/Units 01:00 01:00 01:00 WBC 7.63 (4.8-10.8) K/ul RBC 4.27 L (4.63-6.08) M/uL Hgb 12.9 L (14.0-18.0) g/dl Hct 37.6 L (40.1-51.0) % MCV 88.1 (80.0-100.0) fL MCH 30.2 (25.0-34.0) pg MCHC 34.3 (32.0-36.0) g/dL RDW Std Deviation 42.8 (36.4-46.3) fL RDW Coeff of Rashi 13.2 (11.5-14.5) % Plt Count 133 (130-400) K/uL MPV 9.0 L (9.4-12.4) fL Immature Gran % (Auto) 0.7 % Neut % (Auto) 91.5 % Lymph % (Auto) 1.0 % [place] % (Auto) 3.4 % Eos % (Auto) 3.4 % Baso % (Auto) 0.0 % Neut # (Auto) 6.98 H (1.4-6.5) K/uL Lymph # (Auto) 0.08 L (1.2-3.4) K/uL [place] # (Auto) 0.26 (0.24-0.82) K/uL Eos # (Auto) 0.26 (0-0.50) K/uL Baso # (Auto) 0.00 (0-0.2) K/uL Immature Gran # (Auto) 0.05 H (0.00-0.02) K/uL Platelet Estimate Normal (Normal) Echinocytes 2+ Sodium 130 L (136-145) mmol/L Potassium 3.2 L (3.5-5.1) mmol/L Chloride 99 (98-107) mmol/L Carbon Dioxide 24 (21-32) mmol/L Anion Gap 7 (3-11) BUN 16 (6-23) mg/dl Creatinine 2.01 H D (0.6-1.4) mg/dl Est Cr Clr Drug Dosing 40.8 ml/min Est GFR ( Amer) 39.5 ml/min Est GFR (Non-Af Amer) 34.0 ml/min BUN/Creatinine Ratio 8.0 L (10-20) Glucose 171 H (70-99(Fasting)) mg/dl POC Glucose (70-99) mg/dl Lactate 0.6 (0.4-2.0) mmol/L Calcium 7.5 L (8.5-10.1) mg/dl Magnesium 1.8 (1.7-2.4) mg/dl Total Bilirubin 4.2 H (0.2-1.0) mg/dl Direct Bilirubin (0-0.2) mg/dl AST 50 H (13-39) U/L ALT 135 H (7-52) U/L Alkaline Phosphatase 155 H (34-104) U/L Total Protein 4.6 L (6.0-8.3) gm/dl Albumin 3.0 L (3.4-5.0) gm/dl Globulin 1.6 L (2.5-4.0) gm/dl Albumin/Globulin Ratio 1.9 (0.9-2) Urine Color Urine Appearance (Clear) Urine pH (4.5-7.5) Ur Specific [place] (1.000-1.030) Urine Protein (Negative) Urine Glucose (UA) (Negative) Urine Ketones (Negative) Urine Blood (Negative) Urine Nitrite (Negative) Urine Bilirubin (Negative) Urine Urobilinogen (Negative) Ur Leukocyte Esterase (Negative) Urine WBC (Auto) (0-5) /hpf Urine RBC (Auto) (0-4) /hpf U Hyaline Cast (Auto) (0-5) /lpf U Epithel Cells (Auto) (0-5) /lpf Urine Bacteria (Auto) (Negative) Ur Renal Epithelial Cell Urine Yeast 01/12/22 01/12/22 01/12/22 Range/Units 20:54 17:22 16:16 WBC (4.8-10.8) K/ul RBC (4.63-6.08) M/uL Hgb (14.0-18.0) g/dl Hct (40.1-51.0) % MCV (80.0-100.0) fL MCH (25.0-34.0) pg MCHC (32.0-36.0) g/dL RDW Std Deviation (36.4-46.3) fL RDW Coeff of Rashi (11.5-14.5) % Plt Count (130-400) K/uL MPV (9.4-12.4) fL Immature Gran % (Auto) % Neut % (Auto) % Lymph % (Auto) % [place] % (Auto) % Eos % (Auto) % Baso % (Auto) % Neut # (Auto) (1.4-6.5) K/uL Lymph # (Auto) (1.2-3.4) K/uL [place] # (Auto) (0.24-0.82) K/uL Eos # (Auto) (0-0.50) K/uL Baso # (Auto) (0-0.2) K/uL Immature Gran # (Auto) (0.00-0.02) K/uL Platelet Estimate (Normal) Echinocytes Sodium (136-145) mmol/L Potassium (3.5-5.1) mmol/L Chloride (98-107) mmol/L Carbon Dioxide (21-32) mmol/L Anion Gap (3-11) BUN (6-23) mg/dl Creatinine (0.6-1.4) mg/dl Est Cr Clr Drug Dosing ml/min Est GFR ( Amer) ml/min Est GFR (Non-Af Amer) ml/min BUN/Creatinine Ratio (10-20) Glucose (70-99(Fasting)) mg/dl POC Glucose 133 H 147 H 161 H (70-99) mg/dl Lactate (0.4-2.0) mmol/L Calcium (8.5-10.1) mg/dl Magnesium (1.7-2.4) mg/dl Total Bilirubin (0.2-1.0) mg/dl Direct Bilirubin (0-0.2) mg/dl AST (13-39) U/L ALT (7-52) U/L Alkaline Phosphatase (34-104) U/L Total Protein (6.0-8.3) gm/dl Albumin (3.4-5.0) gm/dl Globulin (2.5-4.0) gm/dl Albumin/Globulin Ratio (0.9-2) Urine Color Urine Appearance (Clear) Urine pH (4.5-7.5) Ur Specific [place] (1.000-1.030) Urine Protein (Negative) Urine Glucose (UA) (Negative) Urine Ketones (Negative) Urine Blood (Negative) Urine Nitrite (Negative) Urine Bilirubin (Negative) Urine Urobilinogen (Negative) Ur Leukocyte Esterase (Negative) Urine WBC (Auto) (0-5) /hpf Urine RBC (Auto) (0-4) /hpf U Hyaline Cast (Auto) (0-5) /lpf U Epithel Cells (Auto) (0-5) /lpf Urine Bacteria (Auto) (Negative) Ur Renal Epithelial Cell Urine Yeast 01/12/22 01/12/22 Range/Units 15:18 11:58 WBC (4.8-10.8) K/ul RBC (4.63-6.08) M/uL Hgb (14.0-18.0) g/dl Hct (40.1-51.0) % MCV (80.0-100.0) fL MCH (25.0-34.0) pg MCHC (32.0-36.0) g/dL RDW Std Deviation (36.4-46.3) fL RDW Coeff of Rashi (11.5-14.5) % Plt Count (130-400) K/uL MPV (9.4-12.4) fL Immature Gran % (Auto) % Neut % (Auto) % Lymph % (Auto) % [place] % (Auto) % Eos % (Auto) % Baso % (Auto) % Neut # (Auto) (1.4-6.5) K/uL Lymph # (Auto) (1.2-3.4) K/uL [place] # (Auto) (0.24-0.82) K/uL Eos # (Auto) (0-0.50) K/uL Baso # (Auto) (0-0.2) K/uL Immature Gran # (Auto) (0.00-0.02) K/uL Platelet Estimate (Normal) Echinocytes Sodium (136-145) mmol/L Potassium (3.5-5.1) mmol/L Chloride (98-107) mmol/L Carbon Dioxide (21-32) mmol/L Anion Gap (3-11) BUN (6-23) mg/dl Creatinine (0.6-1.4) mg/dl Est Cr Clr Drug Dosing ml/min Est GFR ( Amer) ml/min Est GFR (Non-Af Amer) ml/min BUN/Creatinine Ratio (10-20) Glucose (70-99(Fasting)) mg/dl POC Glucose 153 H 150 H (70-99) mg/dl Lactate (0.4-2.0) mmol/L Calcium (8.5-10.1) mg/dl Magnesium (1.7-2.4) mg/dl Total Bilirubin (0.2-1.0) mg/dl Direct Bilirubin (0-0.2) mg/dl AST (13-39) U/L ALT (7-52) U/L Alkaline Phosphatase (34-104) U/L Total Protein (6.0-8.3) gm/dl Albumin (3.4-5.0) gm/dl Globulin (2.5-4.0) gm/dl Albumin/Globulin Ratio (0.9-2) Urine Color Urine Appearance (Clear) Urine pH (4.5-7.5) Ur Specific [place] (1.000-1.030) Urine Protein (Negative) Urine Glucose (UA) (Negative) Urine Ketones (Negative) Urine Blood (Negative) Urine Nitrite (Negative) Urine Bilirubin (Negative) Urine Urobilinogen (Negative) Ur Leukocyte Esterase (Negative) Urine WBC (Auto) (0-5) /hpf Urine RBC (Auto) (0-4) /hpf U Hyaline Cast (Auto) (0-5) /lpf U Epithel Cells (Auto) (0-5) /lpf Urine Bacteria (Auto) (Negative) Ur Renal Epithelial Cell Urine Yeast
[2022-01-13] MEDS ORDERED: ALUMINUM/MAGNESIUM SUSP 30 ML UDC PO STA (15:09)
[2022-01-13] MEDS: MEROPENEM 500 MG in SYRINGE 0 ML IV SCH ×2 (15:15→21:37)
[2022-01-13] MEDS: PANTOprazole 40 MG in SYRINGE 0 ML IV SCH (15:55)
--- NOTE | 2022-01-13 18:28 | Hospitalist Progress Note ---
Date of Service January 13, 2022 Assessment & Plan (1) Acute cholecystitis: (2) Acute gallstone pancreatitis: Plan: Present on admission with severe upper epigastric pain radiating to mid back associated with nausea/dry heaves CT abd/pelvis showed Pericholecystic stranding and stranding within the angelica hepatis. Mild stranding adjacent to the pancreatic head and second portion of the duodenum. Lipase on admission 2500, then normalized today at 42 Elevated Liver enzymes on admission with AST 334 and ALT 324, trending down with AST 91 and ALT 194 MRCP showed No biliary ductal dilatation. No common bile duct calculi identified. Trace fluid adjacent to the pancreatic head and second portion of the duodenum which favors acute pancreatitis. Lipase normalized and liver enzymes trending down today possible pt passed a stone Surgery on board S/P Laparoscopic cholecystectomy performed on 01/11 No postop complication Continue pain control and IVF IV Zosyn changed to Meropenem since pt continue to have fever Continue clear liquid diet Continue monitor closely (3) Transaminitis: (4) Hyperbilirubinemia: Plan: Elevated total Bilirubin from 1.2 to 3 -->4.3 and direct bilirubin 3.1 today Elevated Liver enzymes on admission with AST 334 and ALT 324, trending down with AST 91---> 46 and ALT 194--->115 Gastro on board S/P ERCP on 01/12/22 negative for common bile duct stone or stricture, no stent placed His bilirubin continue to elevate. Case discussed with Gastro/Surgery - Will plan to get a CT abd/pelvis with IV contrast once creatinine improves Continue clear liquid diet for now Fever Continue to have intermittent fever with Tmax 39.2 () Blood cx was collected after pt has been on abx for more than 24hrs - no growth for now Procalcitonin negative IV Zosyn changed to meropenem to cover for ESBL Continue monitor closely IRIS Creatinine 2.1 today Lisinopril on hold Continue IVF for now Will avoid any IV contrast for now until creatinine improves Check BMP in am Hypomagnesemia Mg 1.8 today Continue monitor Diabetes type 2 Most recent Hba1c 6.1 Continue to hold oral diabetes med Continue Novolog sliding scale Continue monitor BS closely while on Lantus since pt is NPO currently DVT prophylaxis: SCDs due to recent surgery Full code Admission and Anticipated Discharge Date Admission Date: January 10, 2022 Subjective Pt was seen and examined for follow up of abdominal pain Sitting in his wheelchair with at bedside Pt said that abdominal pain improved He continued to spike fever despite on IV abx with IV zosyn He tolerated clear liquid diet Denies any chest pain, palpitation, dizziness and SOB Review of Systems Review of Systems: All systems reviewed & are unremarkable except as noted in Subjective Physical Exam Physical Exam: General- No acute distress Head- atraumatic Eyes- PERRL, EOMI, ENT- oropharynx clear Neck- supple, no JVD Lungs- clear to auscultation Heart- regular rhythm; no murmur Abdomen- normal bowel sounds, + tender Extremities- no calf tenderness, +RLE AKA noted Neuro- alert, oriented x 3, PERRL, EOMI; no facial palsy; no dysarthria Skin- warm & dry Results & Data Results & Data ([facility]) Vital Signs (Past 12 Hours) Vital Signs Temp Pulse Resp BP Pulse Ox O2 Del Method 01/13/22 14:13 36.9 C 90 18 92/57 L 94 Room Air 01/13/22 11:50 38 C H 114 H 18 125/58 L 94 01/13/22 08:30 Room Air 01/13/22 09:54 36.6 C 01/13/22 07:12 36.5 C 85 18 97/62 L 94 Room Air
[2022-01-13] MEDS: ALUMINUM/MAGNESIUM SUSP 30 ML UDC PO PRN (21:36)
[2022-01-14] MEDS: ALUMINUM/MAGNESIUM SUSP 30 ML UDC PO PRN ×2 (05:58→14:14)
[2022-01-14] MEDS: MEROPENEM 500 MG in SYRINGE 0 ML IV SCH (05:59)
[2022-01-14 06:31] LABS: Albumin Level 3.2 gm/dl (3.4-5.0); BUN Creatinine Ratio 5.9 (10-20); Bilirubin Direct 3.3 mg/dl (0-0.2); Bilirubin,Total 4.7 mg/dl (0.2-1.0); Calcium 7.4 mg/dl (8.5-10.1); Creatinine Clr Calc Pharmacy 20.3 ml/min; Est GFR (African American) 16.9 ml/min; Est GFR (Non-African American) 14.6 ml/min; Potassium 3.6 mmol/L (3.5-5.1); Total Protein 4.8 gm/dl (6.0-8.3)
[2022-01-14] MEDS ORDERED: ALBUMIN 25% 100 mL 25 GM/100 ML VIAL IV ONE (06:36)
[2022-01-14 06:37] LABS: Hematocrit (blood only) 37.7 % (40.1-51.0); Hemoglobin 13.1 g/dl (14.0-18.0); Mean Corpuscular Hemoglobin 30.4 pg (25.0-34.0); Mean Corpuscular Hgb Conc 34.7 g/dL (32.0-36.0); Mean Corpuscular Volume 87.5 fL (80.0-100.0); Mean Platelet Volume 9.5 fL (9.4-12.4); Platelet Count 104 K/uL (130-400); RDW Coefficient of Variation 13.4 % (11.5-14.5); RDW Standard Deviation 42.9 fL (36.4-46.3); Red Blood Count 4.31 M/uL (4.63-6.08); White Blood Count 5.82 K/ul (4.8-10.8)
--- NOTE | 2022-01-14 06:37 | Communication Note ---
Date of Service: January 14, 2022 Made aware by RN of decreased urine output Serum creatinine 4.05 from 2.17 yesterday. AP Worsening kidney dysfunction IV albumin 1 dose (colloid preferred over crystalloid given persistent pulmonary congestion) Renal ultrasound Nephrology consult
[2022-01-14 07:02] LABS: Echinocytes 2+; Eosinophils # (auto) 0.41 K/uL (0-0.50); Immature Granulocytes # (auto) 0.03 K/uL (0.00-0.02); Immature Granulocytes % (auto) 0.5 %; Lymphocytes # (auto) 0.13 K/uL (1.2-3.4); Lymphocytes % (auto) 2.2 %; Monocytes # (auto) 0.33 K/uL (0.24-0.82); Monocytes % (auto) 5.7 %; Neutrophils # (auto) 4.92 K/uL (1.4-6.5); Neutrophils % (auto) 84.6 %
--- NOTE | 2022-01-14 08:58 | Communication Note ---
Date of Service: January 14, 2022 Pt was seen and evaluated, chart reviewed. Spiked a fever last night, hypotensive last night. [employer] bumped from 2-->4, LFTs persistently elevated. Would recommend Repeat blood cultures, continuation of broad ABX. Agree with nephrology consultation. Recommend ID consultation. Needs volume resuscitation. Guarded prognosis. GI will watch labs peripherally. Thank you for allowing us to participate in the care of this patient. Please call with any acute changes, questions or concerns. Please see addendum below with additional recommendation from my supervising physician.
--- NOTE | 2022-01-14 09:01 | Surgery Progress Note ---
Date of Service January 14, 2022 Assessment & Plan (1) Acute gallstone pancreatitis: (2) Acute cholecystitis: Plan POD # 3 s/p laparoscopic cholecystectomy POD # 2 s/p ERCP - afebrile today ( Last fever 38.0 01/13/2022 11:00 a.m.) - leukocytosis resolved - T. bili and d. bili increasing - LFTS and alk phos slightly elevated today - ERCP negative for common bile duct stone or stricture, no stent placed - creatinine up to 4.0 Plan: Unsure etiology of rising t.bili and d. bili. ERCP was negative for stone or stricture. creatinine elevated today with decreased urine output. Renal ultrasound ordered. Nephrology consult ordered. Given lack of abdominal symptoms, I do not suspect bowel injury or other intra- abdominal pathology, however consider CT scan with oral contrast for re- evaluation Continue clear liquids for now Continue Meropenem - has not had fevers since switching antibiotics pain management as needed Incentive spirometry DVT prophylaxis Admission and Anticipated Discharge Date Admission Date: January 10, 2022 Subjective Had decreased urine output overnight. Creatinine this morning is 4.0. Total bilirubin and direct bilirubin slightly elevated over yesterday. He denies significant abdominal pain. No fevers since starting the meropenem. He is tolerating his diet. Physical Exam Physical Exam: Alert and oriented x3, no acute distress Abdomen: Soft, obese, minimal tenderness to palpation; incisions healing well without erythema or discharge; Dermabond in place Results & Data ([facility]) Vital Signs (Past 12 Hours) Vital Signs Temp Pulse Pulse Resp BP BP Pulse Ox 01/14/22 08:36 36.8 C 91 H 16 135/70 94 01/14/22 07:20 01/14/22 07:10 37.1 C 93 H 18 111/72 96 01/13/22 22:32 01/13/22 21:22 121/61 01/13/22 21:09 37.4 C 99 H 20 87/54 L 94 O2 Del Method 01/14/22 08:36 Room Air 01/14/22 07:20 Room Air 01/14/22 07:10 Room Air 01/13/22 22:32 Room Air 01/13/22 21:22 01/13/22 21:09 Room Air
[2022-01-14] MEDS: PREGABALIN 100 MG CAP PO SCH ×2 (09:03→21:10)
[2022-01-14] MEDS: CYANOCOBALAMIN (B-12) 500 MCG TABLET PO SCH (09:03)
[2022-01-14] MEDS: ATORVASTATIN 40 MG TAB PO SCH (09:03)
[2022-01-14] MEDS: allopurinoL 300 MG TAB PO SCH (09:04)
[2022-01-14] MEDS: INSULIN ASPART PER UNIT SC SCH ×4 (09:04→20:53)
[2022-01-14] MEDS: SERTRALINE HCL 50 MG TABLET PO SCH (09:04)
[2022-01-14] MEDS: LANTUS PER UNIT CHARGE SQ SCH (09:05)
--- NOTE | 2022-01-14 09:05 | Ultrasound Report ---
RENAL ULTRASOUND HISTORY: Acute renal failure. COMPARISON: Abdomen and pelvis CT 01/10/2022. FINDINGS: Right kidney: 9.6 cm. This is located within the pelvis. There is a 2.3 cm exophytic cyst within the lower pole. No hydronephrosis. Normal corticomedullary differentiation and cortical thickness. Left kidney: 13.3 cm. No hydronephrosis. Normal corticomedullary differentiation and cortical thickne ss. Bladder: Mild bladder wall thickening. This could be due to underdistention. No ureteral jets identif ied. IMPRESSION: 1. No hydronephrosis. 2. Right pelvic kidney again noted. 3. Mild bladder wall thickening which could be due to underdistention. Recommend correlation with uri nalysis. ACT 112: Negative or not required by law. Electronically signed by: Christian Tomlinson M.D. 01/14/2022 9:04 AM
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
[2022-01-14] MEDS: PANTOprazole 40 MG in SYRINGE 0 ML IV SCH ×2 (11:04→21:10)
[2022-01-14 13:01] LABS: BUN Creatinine Ratio 6.3 (10-20); Calcium 7.6 mg/dl (8.5-10.1); Creatinine Clr Calc Pharmacy 18.5 ml/min; Est GFR (African American) 15.2 ml/min; Est GFR (Non-African American) 13.1 ml/min; Potassium 3.6 mmol/L (3.5-5.1)
--- NOTE | 2022-01-14 13:38 | CT Scan Report ---
ABDOMEN AND PELVIS CT WITH ORAL CONTRAST CT DOSE: 1024.72 mGycm HISTORY: Acute generalized abdominal pain in a patient with recent cholecystectomy R/O INTRA-ABDOMIN AL COLLECTION TECHNIQUE: Multiaxial CT images of the abdomen and pelvis were performed following the use of oral co ntrast. A dose lowering technique was utilized adhering to the principles of ALARA. COMPARISON STUDY: CT 01/10/2022 FINDINGS: Coronary arterial calcifications. Small right and trace left pleural effusions. Mild right hemidiaphragmatic elevation. Subsegmental bibasilar densities favoring atelectasis. No pneumatosis or pneumoperitoneum. The unenhanced spleen is enlarged measuring up to 15.5 cm in length. Mild stranding adjacent to the p ancreatic head and pancreaticoduodenal groove. The pancreas is otherwise unremarkable. Normal-appeari ng adrenal glands. Interval laparoscopic cholecystectomy. Trace fluid within the angelica hepatis is lik darryn expected postoperative finding. No postoperative fluid collection. The liver is unremarkable. Calcifications of the left kidney redemonstrated measuring up to 4 mm. Probable calyceal diverticulum of the superior pole left kidney. No ureteral calculi or hydronephrosis. Congenital pelvic right kid juliette with exophytic right renal cyst. No hydronephrosis. Remarkable urinary bladder. Small fat filled left inguinal hernia. Atherosclerosis of the aorta. Infrahepatic IVC filter. Nonspecific distal esophageal wall thickening. Mild wall thickening of the duodenum is likely reactiv e. No bowel obstruction. Colonic diverticulosis with mild fecal retention. Postoperative changes of t he anterior abdominal wall with mild generalized body wall edema. No acute fracture. IMPRESSION: 1. Postoperative changes of interval laparoscopic cholecystectomy. Trace free fluid within the angelica hepatis is likely an expected postoperative finding. No focal postoperative fluid collection. 2. Mild stranding adjacent to the pancreatic head is likely reactive. Correlate with lipase to exclud e a mild acute pancreatitis. 3. No bowel obstruction or bowel wall thickening. 4. Trace left and small right pleural effusions with mild generalized body wall edema. 5. Nonobstructing left renal calculi. 6. Pelvic right kidney. ACT 112: Negative or not required by law. The above report was generated using voice recognition software. It may contain grammatical, syntax o r spelling errors. Electronically signed by: Norman Berry M.D. 01/14/2022 1:37 PM
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
[2022-01-14] MEDS ORDERED: SODIUM CHLORIDE 0.9% 1000ML 1,000 ML IV SCH (16:30)
[2022-01-14 16:34] LABS: Appearance Urine Turbid (Clear); Blood Urine Trace (Negative); Color Urine Dark Yellow; Epithelial Cell Urine Auto >30 /lpf (0-5); Glucose Urine UA Trace (Negative); Ketones Urine Trace (Negative); Leukocyte Esterase Urine Trace (Negative); Nitrite Urine Positive (Negative); Protein Urine 2+ (Negative); Specific Gravity Urine 1.023 (1.000-1.030); Urobilinogen Urine Negative (Negative)
[2022-01-14 16:36] LABS: Bilirubin Urine 1+ (Negative)
[2022-01-14 17:05] LABS: Creatinine Urine Random 156.3 mg/dl
[2022-01-14 17:13] LABS: RBC Urine Automated 0-4 /hpf (0-4)
[2022-01-14 17:15] LABS: Amorphous Sediment Urine Present (None Prsent)
[2022-01-14 17:17] LABS: Bacteria Urine Automated 2+ (Negative)
[2022-01-14 17:21] LABS: Uric Acid 4.8 mg/dl (2.6-7.2)
[2022-01-14] MEDS: metroNIDAZOLE 500 MG/100 ML BAG IV SCH (17:33)
[2022-01-14] MEDS: CEFEPIME 2,000 MG in SYRINGE 0 ML IV SCH (17:33)
[2022-01-14] MEDS ORDERED: MEROPENEM 500 MG in SYRINGE 0 ML IV SCH (18:00)
[2022-01-14] MEDS: ACETAMINOPHEN 325 MG TAB PO PRN (21:09)
[2022-01-14 23:36] LABS: BUN Creatinine Ratio 6.8 (10-20); Calcium 7.3 mg/dl (8.5-10.1); Creatinine Clr Calc Pharmacy 15.4 ml/min; Est GFR (African American) 12.2 ml/min; Est GFR (Non-African American) 10.5 ml/min; Potassium 3.6 mmol/L (3.5-5.1)
[2022-01-15 06:44] LABS: Hemoglobin 13.6 g/dl (14.0-18.0); Mean Corpuscular Hemoglobin 30.6 pg (25.0-34.0); Mean Corpuscular Hgb Conc 34.9 g/dL (32.0-36.0); Mean Corpuscular Volume 87.6 fL (80.0-100.0); Mean Platelet Volume 9.6 fL (9.4-12.4); Platelet Count 100 K/uL (130-400); RDW Coefficient of Variation 13.4 % (11.5-14.5); RDW Standard Deviation 43.2 fL (36.4-46.3); Red Blood Count 4.45 M/uL (4.63-6.08); White Blood Count 7.26 K/ul (4.8-10.8)
[2022-01-15 07:01] LABS: Basophils # (auto) 0.01 K/uL (0-0.2); Basophils % (auto) 0.1 %; Echinocytes 3+; Eosinophils % (auto) 9.6 %; Immature Granulocytes # (auto) 0.04 K/uL (0.00-0.02); Immature Granulocytes % (auto) 0.6 %; Lymphocytes # (auto) 0.36 K/uL (1.2-3.4); Monocytes # (auto) 0.42 K/uL (0.24-0.82); Monocytes % (auto) 5.8 %; Neutrophils # (auto) 5.73 K/uL (1.4-6.5); Neutrophils % (auto) 78.9 %
[2022-01-15 07:18] LABS: Albumin Level 3.2 gm/dl (3.4-5.0); BUN Creatinine Ratio 7.2 (10-20); Bilirubin Direct 3.6 mg/dl (0-0.2); Bilirubin,Total 5.3 mg/dl (0.2-1.0); Calcium 7.6 mg/dl (8.5-10.1); Creatinine Clr Calc Pharmacy 15.2 ml/min; Est GFR (African American) 11.9 ml/min; Est GFR (Non-African American) 10.3 ml/min; Globulin 1.6 gm/dl (2.5-4.0); Potassium 3.5 mmol/L (3.5-5.1); Total Protein 4.8 gm/dl (6.0-8.3)
[2022-01-15] MEDS ORDERED: NURSING DECISION MEDICATION ONE (07:52)
[2022-01-15] MEDS ORDERED: COUGH DROP (SUGAR FREE) LOZ 24 LOZ/1 BOX BUCCAL PRN (07:57)
[2022-01-15] MEDS: metroNIDAZOLE 500 MG/100 ML BAG IV SCH ×3 (09:29→17:44)
[2022-01-15] MEDS: PANTOprazole 40 MG in SYRINGE 0 ML IV SCH (09:29)
[2022-01-15] MEDS: PREGABALIN 100 MG CAP PO SCH ×2 (09:29→20:34)
[2022-01-15] MEDS: SERTRALINE HCL 50 MG TABLET PO SCH (09:30)
[2022-01-15] MEDS: allopurinoL 300 MG TAB PO SCH (09:30)
[2022-01-15] MEDS: CYANOCOBALAMIN (B-12) 500 MCG TABLET PO SCH (09:30)
[2022-01-15] MEDS: LANTUS PER UNIT CHARGE SQ SCH (09:42)
[2022-01-15] MEDS: INSULIN ASPART PER UNIT SC SCH ×4 (09:42→21:24)
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
[2022-01-15 17:15] LABS: BUN Creatinine Ratio 7.1 (10-20); Calcium 7.6 mg/dl (8.5-10.1); Creatinine Clr Calc Pharmacy 12.9 ml/min; Est GFR (African American) 9.8 ml/min; Est GFR (Non-African American) 8.5 ml/min; Potassium 3.8 mmol/L (3.5-5.1)
--- NOTE | 2022-01-15 17:32 | Surgery Progress Note ---
Date of Service January 15, 2022 Assessment & Plan (1) Acute gallstone pancreatitis: (2) Acute cholecystitis: (3) Hyponatremia: (4) Acute renal failure: (5) Hyperbilirubinemia: Plan POD # 4 s/p laparoscopic cholecystectomy POD # 3 s/p ERCP - afebrile today - leukocytosis resolved - T. bili and d. bili increasing - LFTS and alk phos increased slightly - ERCP negative for common bile duct stone or stricture, no stent placed - creatinine up to 6.35 ARF nonoliguric Stage 3 IRIS in the setting of severe sepsis from cholangitis/pancreatitis/IV contrast exposure/ lisinopril use/ recent hypotension Elevated bilirubin due to decrease clearances from ARF? CT scan abd/pelvis 01/14/22 negative Plan: Doing okay from surgical standpoint Continue clear liquids for now Strict I/O , continue hummel IV fluids per nephrology Continue IV abx per ID recommendations pain management as needed Incentive spirometry DVT prophylaxis Continue current medical management Discussed with Dr. Treviño who agrees with above. Admission and Anticipated Discharge Date Admission Date: January 10, 2022 Subjective no abdominal pain, no n,v tolerating clear liquids having hallucinations today frustrated with his current status Physical Exam Constitutional: + obese, cooperative and + lethargic; no acute distress Neck: normal visual inspection and trachea midline Respiratory: normal respiratory effort; no respiratory distress, no labored breathing and no retractions Gastrointestinal (Abdomen): Inspection/Auscultation: abdomen normal to inspection, + abdominal surgical incision (clean , dry,intact with dermabond) and + hypoactive bowel sounds; abdomen not distended and + abnormal bowel sounds Percussion/Palpation: abdomen soft; abdomen nontender, no guarding and abdomen not rigid Skin: no rashes, warm and dry + jaundice (scleral icterus) Psychiatric: Orientation: alert, oriented x 3 and cooperative Eye Contact: good eye contact Results & Data ([facility]) Vital Signs (Past 12 Hours) Vital Signs Temp Pulse Pulse Resp BP Pulse Ox O2 Del Method 01/15/22 17:04 37.2 C 87 20 119/65 98 Room Air 01/15/22 05:55 36.3 C L 83 18 146/76 H 98 Room Air Laboratory Results 01/15/22 01/15/22 01/15/22 Range/Units 18:41 16:49 16:11 WBC (4.8-10.8) K/ul RBC (4.63-6.08) M/uL Hgb (14.0-18.0) g/dl Hct (40.1-51.0) % MCV (80.0-100.0) fL MCH (25.0-34.0) pg MCHC (32.0-36.0) g/dL RDW Std Deviation (36.4-46.3) fL RDW Coeff of Rashi (11.5-14.5) % Plt Count (130-400) K/uL MPV (9.4-12.4) fL Immature Gran % (Auto) % Neut % (Auto) % Lymph % (Auto) % Divide % (Auto) % Eos % (Auto) % Baso % (Auto) % Neut # (Auto) (1.4-6.5) K/uL Lymph # (Auto) (1.2-3.4) K/uL Divide # (Auto) (0.24-0.82) K/uL Eos # (Auto) (0-0.50) K/uL Baso # (Auto) (0-0.2) K/uL Immature Gran # (Auto) (0.00-0.02) K/uL Echinocytes Sodium 124 L (136-145) mmol/L Potassium 3.8 (3.5-5.1) mmol/L Chloride 96 L (98-107) mmol/L Carbon Dioxide 18 L (21-32) mmol/L Anion Gap 10 (3-11) BUN 45 H (6-23) mg/dl Creatinine 6.35 H* D (0.6-1.4) mg/dl Est Cr Clr Drug Dosing 12.9 ml/min Est GFR ( Amer) 9.8 ml/min Est GFR (Non-Af Amer) 8.5 ml/min BUN/Creatinine Ratio 7.1 L (10-20) Glucose 119 H (70-99(Fasting)) mg/dl POC Glucose 129 H (70-99) mg/dl Calcium 7.6 L (8.5-10.1) mg/dl Total Bilirubin (0.2-1.0) mg/dl Direct Bilirubin (0-0.2) mg/dl AST (13-39) U/L ALT (7-52) U/L Alkaline Phosphatase (34-104) U/L Ammonia 33.0 (18-72) umol/L Total Protein (6.0-8.3) gm/dl Albumin (3.4-5.0) gm/dl Globulin (2.5-4.0) gm/dl Albumin/Globulin Ratio (0.9-2) Lipase (11-82) U/L 01/15/22 01/15/22 01/15/22 Range/Units 12:19 08:23 06:17 WBC (4.8-10.8) K/ul RBC (4.63-6.08) M/uL Hgb (14.0-18.0) g/dl Hct (40.1-51.0) % MCV (80.0-100.0) fL MCH (25.0-34.0) pg MCHC (32.0-36.0) g/dL RDW Std Deviation (36.4-46.3) fL RDW Coeff of Rashi (11.5-14.5) % Plt Count (130-400) K/uL MPV (9.4-12.4) fL Immature Gran % (Auto) % Neut % (Auto) % Lymph % (Auto) % Divide % (Auto) % Eos % (Auto) % Baso % (Auto) % Neut # (Auto) (1.4-6.5) K/uL Lymph # (Auto) (1.2-3.4) K/uL Divide # (Auto) (0.24-0.82) K/uL Eos # (Auto) (0-0.50) K/uL Baso # (Auto) (0-0.2) K/uL Immature Gran # (Auto) (0.00-0.02) K/uL Echinocytes Sodium 123 L (136-145) mmol/L Potassium 3.5 (3.5-5.1) mmol/L Chloride 95 L (98-107) mmol/L Carbon Dioxide 18 L (21-32) mmol/L Anion Gap 10 (3-11) BUN 39 H (6-23) mg/dl Creatinine 5.41 H* (0.6-1.4) mg/dl Est Cr Clr Drug Dosing 15.2 ml/min Est GFR ( Amer) 11.9 ml/min Est GFR (Non-Af Amer) 10.3 ml/min BUN/Creatinine Ratio 7.2 L (10-20) Glucose 109 H (70-99(Fasting)) mg/dl POC Glucose 157 H 121 H (70-99) mg/dl Calcium 7.6 L (8.5-10.1) mg/dl Total Bilirubin 5.3 H (0.2-1.0) mg/dl Direct Bilirubin 3.6 H (0-0.2) mg/dl AST 146 H (13-39) U/L ALT 136 H (7-52) U/L Alkaline Phosphatase 289 H (34-104) U/L Ammonia (18-72) umol/L Total Protein 4.8 L (6.0-8.3) gm/dl Albumin 3.2 L (3.4-5.0) gm/dl Globulin 1.6 L (2.5-4.0) gm/dl Albumin/Globulin Ratio 2.0 (0.9-2) Lipase 68 (11-82) U/L 01/15/22 01/14/22 01/14/22 Range/Units 06:17 22:51 20:33 WBC 7.26 (4.8-10.8) K/ul RBC 4.45 L (4.63-6.08) M/uL Hgb 13.6 L (14.0-18.0) g/dl Hct 39.0 L (40.1-51.0) % MCV 87.6 (80.0-100.0) fL MCH 30.6 (25.0-34.0) pg MCHC 34.9 (32.0-36.0) g/dL RDW Std Deviation 43.2 (36.4-46.3) fL RDW Coeff of Rashi 13.4 (11.5-14.5) % Plt Count 100 L (130-400) K/uL MPV 9.6 (9.4-12.4) fL Immature Gran % (Auto) 0.6 % Neut % (Auto) 78.9 % Lymph % (Auto) 5.0 % Divide % (Auto) 5.8 % Eos % (Auto) 9.6 % Baso % (Auto) 0.1 % Neut # (Auto) 5.73 (1.4-6.5) K/uL Lymph # (Auto) 0.36 L (1.2-3.4) K/uL Divide # (Auto) 0.42 (0.24-0.82) K/uL Eos # (Auto) 0.70 H (0-0.50) K/uL Baso # (Auto) 0.01 (0-0.2) K/uL Immature Gran # (Auto) 0.04 H (0.00-0.02) K/uL Echinocytes 3+ Sodium 121 L (136-145) mmol/L Potassium 3.6 (3.5-5.1) mmol/L Chloride 95 L (98-107) mmol/L Carbon Dioxide 16 L (21-32) mmol/L Anion Gap 10 (3-11) BUN 36 H (6-23) mg/dl Creatinine 5.32 H* D (0.6-1.4) mg/dl Est Cr Clr Drug Dosing 15.4 ml/min Est GFR ( Amer) 12.2 ml/min Est GFR (Non-Af Amer) 10.5 ml/min BUN/Creatinine Ratio 6.8 L (10-20) Glucose 145 H (70-99(Fasting)) mg/dl POC Glucose 153 H (70-99) mg/dl Calcium 7.3 L (8.5-10.1) mg/dl Total Bilirubin (0.2-1.0) mg/dl Direct Bilirubin (0-0.2) mg/dl AST (13-39) U/L ALT (7-52) U/L Alkaline Phosphatase (34-104) U/L Ammonia (18-72) umol/L Total Protein (6.0-8.3) gm/dl Albumin (3.4-5.0) gm/dl Globulin (2.5-4.0) gm/dl Albumin/Globulin Ratio (0.9-2) Lipase (11-82) U/L
[2022-01-15] MEDS: CEFEPIME 2,000 MG in SYRINGE 0 ML IV SCH (17:44)
--- NOTE | 2022-01-15 17:59 | Nephrology Progress Note ---
Date of Service January 15, 2022 Assessment & Plan (1) Acute renal failure: Plan: nonoliguric Stage 3 IRIS in the setting of severe sepsis from cholangitis/pancreatitis/IV contrast exposure/ lisinopril use/ recent hypotension > creatinine uptrend stopped with IVF though these were held d/t worsening serum sodium. now rapid creat uptrend resumed. baseline creatinine 0.7. -no indication for urgent dialysis; though cannot rule out need this admission; some concern for confusion this afternoon > ? from lyrica or other -would hold/stop/lower dose on lyrica d/t metabolites' tendency to accumulate in renal failure -repeat UA most c/w ATN on 01/14 -strict I/O > cont hummel for now -recommend 1 L of 1/2 NS w/ 75 mEq/L sodium bicarb at 80 ml/hr > order in -daily bmp care coordinated with hospitalist team (2) Hyponatremia: Plan: hyponatremia not severe. ? mild fluid overload (CXR) versus mild volume depletion (pancreatitis) >> his sodium worsened w/ IVF last evening to 121. some confusion this afternoon possibly, sNa mid 120s at the time -urine, serum osms and rd urine Na ordered >> not particularly revealing of fluid overload or volume depletion -1L only of IVF as above Admission and Anticipated Discharge Date Admission Date: January 10, 2022 Subjective seen on rounds this am; moving bowels, abdominal pain improved; no sob or edema; on liquid diet Review of Systems Review of Systems: All systems reviewed & are unremarkable except as noted in Subjective Physical Exam Constitutional: well developed (on RA), well nourished, + obese, cooperative and comfortable; no acute distress Eyes: EOM intact bilaterally ENMT: Ears: no external ear abnormality Nose: no external nose abnormality Mouth: + dry oral mucous membranes Neck: no nuchal rigidity Respiratory: normal respiratory effort Auscultation: + diminished lung sounds Cardiovascular: Rate/Rhythm: regular rate and regular rhythm Extremities: + edema (at most trace LLE) Gastrointestinal (Abdomen): Inspection/Auscultation: + abdomen distended and normal bowel sounds Percussion/Palpation: abdomen soft; abdomen nontender Musculoskeletal: Extremities: strength 5/5 throughout and + lower leg abnormality (s/p R AKA) Skin: no rashes, warm and dry Neurologic: reilly, fluent speech, no tremor Psychiatric: Orientation: oriented x 3 Speech: normal rate/rhythm/volume of speech Results & Data ([facility]) Vital Signs (Past 12 Hours) Vital Signs Temp Pulse Pulse Resp BP Pulse Ox O2 Del Method 01/15/22 17:04 37.2 C 87 20 119/65 98 Room Air 01/15/22 05:55 36.3 C L 83 18 146/76 H 98 Room Air Laboratory Results 01/15/22 06:17 01/15/22 16:11
[2022-01-15] MEDS ORDERED: SODIUM BICARBONATE 8.4% 75 MEQ in SODIUM CHLORIDE 0.45 % 1,000 ML IV SCH (18:15)
[2022-01-15] MEDS: PANTOprazole 40 MG TAB PO SCH (20:34)
[2022-01-16] MEDS: metroNIDAZOLE 500 MG/100 ML BAG IV SCH ×3 (00:47→16:33)
[2022-01-16 08:10] LABS: Alanine Aminotransferase 150 U/L (7-52); Albumin Globulin Ratio 1.8 (0.9-2); Albumin Level 2.9 gm/dl (3.4-5.0); Alkaline Phosphatase 397 U/L (34-104); Anion Gap 9 (3-11); BUN Creatinine Ratio 8.1 (10-20); Bilirubin,Total 4.2 mg/dl (0.2-1.0); Blood Urea Nitrogen 50 mg/dl (6-23); Calcium 7.5 mg/dl (8.5-10.1); Carbon Dioxide 19 mmol/L (21-32); Chloride 98 mmol/L (98-107); Creatinine Clr Calc Pharmacy 13.2 ml/min; Est GFR (African American) 10.1 ml/min; Est GFR (Non-African American) 8.7 ml/min; Globulin 1.6 gm/dl (2.5-4.0); Glucose 103 mg/dl (70-99(Fasting)); Magnesium 2.3 mg/dl (1.7-2.4); Phosphorus 4.3 mg/dl (2.5-4.9); Sodium 126 mmol/L (136-145); Total Protein 4.5 gm/dl (6.0-8.3)
[2022-01-16] MEDS: SERTRALINE HCL 50 MG TABLET PO SCH (08:28)
[2022-01-16] MEDS: allopurinoL 300 MG TAB PO SCH (08:28)
[2022-01-16] MEDS: PANTOprazole 40 MG TAB PO SCH ×2 (08:29→21:35)
[2022-01-16] MEDS: CYANOCOBALAMIN (B-12) 500 MCG TABLET PO SCH (08:29)
[2022-01-16] MEDS: INSULIN ASPART PER UNIT SC SCH ×4 (08:44→21:36)
[2022-01-16] MEDS: LANTUS PER UNIT CHARGE SQ SCH (08:45)
[2022-01-16] MEDS ORDERED: PREGABALIN 50 MG CAP PO SCH (09:00)
[2022-01-16 09:48] LABS: Potassium 3.7 mmol/L (3.5-5.1)
[2022-01-16 10:04] LABS: Hemoglobin 13.3 g/dl (14.0-18.0); Mean Corpuscular Hemoglobin 29.8 pg (25.0-34.0); Mean Corpuscular Volume 85.2 fL (80.0-100.0); Mean Platelet Volume 9.8 fL (9.4-12.4); Platelet Count 101 K/uL (130-400); RDW Coefficient of Variation 13.3 % (11.5-14.5); RDW Standard Deviation 41.8 fL (36.4-46.3); Red Blood Count 4.46 M/uL (4.63-6.08); White Blood Count 7.57 K/ul (4.8-10.8)
[2022-01-16 10:05] LABS: Basophils # (auto) 0.01 K/uL (0-0.2); Basophils % (auto) 0.1 %; Eosinophils % (auto) 7.9 %; Immature Granulocytes # (auto) 0.02 K/uL (0.00-0.02); Immature Granulocytes % (auto) 0.3 %; Lymphocytes # (auto) 0.55 K/uL (1.2-3.4); Lymphocytes % (auto) 7.3 %; Monocytes # (auto) 0.51 K/uL (0.24-0.82); Monocytes % (auto) 6.7 %; Neutrophils # (auto) 5.88 K/uL (1.4-6.5); Neutrophils % (auto) 77.7 %
[2022-01-16] MEDS ORDERED: SODIUM CHLORIDE 0.45 % 1,000 ML IV SCH (11:15)
[2022-01-16] MEDS ORDERED: STAT IV STA (11:15)
[2022-01-16] MEDS: SODIUM BICARBONATE 8.4% 75 MEQ in SODIUM CHLORIDE 0.45 % 1,000 ML IV SCH (12:30)
--- NOTE | 2022-01-16 13:18 | Surgery Progress Note ---
Date of Service January 16, 2022 Assessment & Plan (1) Acute gallstone pancreatitis: (2) Acute cholecystitis: (3) Hyponatremia: (4) Acute renal failure: (5) Hyperbilirubinemia: Plan POD # 5 s/p laparoscopic cholecystectomy POD # 4 s/p ERCP - afebrile - leukocytosis resolved - T. bili with slight improvement today 5.3 --> 4.2 - LFTS and alk phos increased slightly - ERCP negative for common bile duct stone or stricture, no stent placed - creatinine up to 6.19 (6.3 last evening) - urine output slowly increasing ARF nonoliguric Stage 3 IRIS in the setting of severe sepsis from cholangitis/pancreatitis/IV contrast exposure/ lisinopril use/ recent hypotension Elevated bilirubin due to decrease clearances from ARF? CT scan abd/pelvis 01/14/22 negative Plan: Doing okay from surgical standpoint advance diet Strict I/O , continue hummel IV fluids per nephrology Continue IV abx per ID recommendations pain management as needed Incentive spirometry DVT prophylaxis Continue current medical management Dr. Patino covering this weekend Discussed with Dr. Treviño who agrees with above. Admission and Anticipated Discharge Date Admission Date: January 10, 2022 Subjective feeling blah today no abdominal pain, no n,v passing gas and had a formed bowel movement urine output seems to be slowly increasing tolerating clear liquids would like some solid food Physical Exam Constitutional: + obese and cooperative; no acute distress and not ill appearing Neck: normal visual inspection and trachea midline Respiratory: normal respiratory effort; no respiratory distress, no labored breathing and no retractions Gastrointestinal (Abdomen): Inspection/Auscultation: abdomen normal to inspection and + abdominal surgical incision (clean/dry/intact with dermabond); abdomen not distended and + abnormal bowel sounds Percussion/Palpation: abdomen soft; abdomen nontender, no guarding and abdomen not rigid Skin: no rashes, warm and dry + jaundice (scleral icterus) Psychiatric: Orientation: alert and oriented x 3 Results & Data ([facility]) Vital Signs (Past 12 Hours) Vital Signs Temp Pulse Resp BP Pulse Ox O2 Del Method 01/16/22 07:44 36.5 C 79 18 161/79 H 97 Room Air Laboratory Results 01/16/22 01/16/22 01/16/22 Range/Units 12:28 08:50 08:50 WBC 7.57 RBC 4.46 L Hgb 13.3 L Hct 38.0 L MCV 85.2 MCH 29.8 MCHC 35.0 RDW Std Deviation 41.8 RDW Coeff of Rashi 13.3 Plt Count 101 L MPV 9.8 Immature Gran % (Auto) 0.3 Neut % (Auto) 77.7 Lymph % (Auto) 7.3 Kay % (Auto) 6.7 Eos % (Auto) 7.9 Baso % (Auto) 0.1 Neut # (Auto) 5.88 Lymph # (Auto) 0.55 L Kay # (Auto) 0.51 Eos # (Auto) 0.60 H Baso # (Auto) 0.01 Immature Gran # (Auto) 0.02 Absolute Nucleated RBC Nucleated RBC % (auto) Neutrophils % (Manual) Band Neutrophils % Lymphocytes % (Manual) Prolymphocyte % Reactive Lymphs % (Man) Monocytes % (Manual) Eosinophils % (Manual) Basophils % (Manual) Metamyelocytes % (Man) Myelocytes % (Man) Promyelocytes % (Man) Blast Cells % (Manual) Plasma Cell % (Manual) Other Cells % Nucleated RBC % Neutrophils # (Manual) Band Neutrophils # Total Absolute Neuts Lymphocytes # (Manual) Prolymphocyte # Reactive Lymphs # Total Abs Lymphocytes Monocytes # (Manual) Eosinophils # (Manual) Basophils # (Manual) Metamyelocytes # (Man) Myelocytes # (Manual) Promyelocytes # (Man) Blast Cells # (Man) Plasma Cell # (Manual) Other Cells # Nucleated RBCs # (Man) Hypersegmented Neuts Hyposegmented Neuts Hypogranular Neuts Large Granular Lymphs # Lrg Granular Lymphs Hairy Cells Smudge Cells Toxic Granulation Toxic Vacuolation Dohle Bodies Kanwal Rods Platelet Estimate Hypogranular Platelets Clumped Platelets Giant Platelets Platelet Satelliting RBC Morphology Polychromasia Hypochromasia Poikilocytosis Basophilic Stippling Anisocytosis Microcytosis Macrocytosis Spherocytes Pappenheimer Bodies Sickle Cells Target Cells Tear Drop Cells Ovalocytes Stomatocytes [place] Bodies Echinocytes Acanthocytes (Spur) Rouleaux RBC Agglutinates Schistocytes Sezary Cell Sodium (136-145) mmol/L Potassium 3.7 (3.5-5.1) mmol/L Chloride (98-107) mmol/L Carbon Dioxide (21-32) mmol/L Anion Gap (3-11) BUN (6-23) mg/dl Creatinine (0.6-1.4) mg/dl Est Cr Clr Drug Dosing ml/min Est GFR ( Amer) ml/min Est GFR (Non-Af Amer) ml/min BUN/Creatinine Ratio (10-20) Glucose (70-99(Fasting)) mg/dl POC Glucose 129 H (70-99) mg/dl Calcium (8.5-10.1) mg/dl Phosphorus (2.5-4.9) mg/dl Magnesium (1.7-2.4) mg/dl Total Bilirubin (0.2-1.0) mg/dl AST 164 H ALT (7-52) U/L Alkaline Phosphatase (34-104) U/L Ammonia (18-72) umol/L Total Protein (6.0-8.3) gm/dl Albumin (3.4-5.0) gm/dl Globulin (2.5-4.0) gm/dl Albumin/Globulin Ratio (0.9-2) Blood Parasites ID 01/16/22 01/16/22 01/16/22 Range/Units 08:08 07:24 07:24 WBC Cancelled RBC Cancelled Hgb Cancelled Hct Cancelled MCV Cancelled MCH Cancelled MCHC Cancelled RDW Std Deviation Cancelled RDW Coeff of Rashi Cancelled Plt Count Cancelled MPV Cancelled Immature Gran % (Auto) Cancelled Neut % (Auto) Cancelled Lymph % (Auto) Cancelled Kay % (Auto) Cancelled Eos % (Auto) Cancelled Baso % (Auto) Cancelled Neut # (Auto) Cancelled Lymph # (Auto) Cancelled Kay # (Auto) Cancelled Eos # (Auto) Cancelled Baso # (Auto) Cancelled Immature Gran # (Auto) Cancelled Absolute Nucleated RBC Cancelled Nucleated RBC % (auto) Cancelled Neutrophils % (Manual) Cancelled Band Neutrophils % Cancelled Lymphocytes % (Manual) Cancelled Prolymphocyte % Cancelled Reactive Lymphs % (Man) Cancelled Monocytes % (Manual) Cancelled Eosinophils % (Manual) Cancelled Basophils % (Manual) Cancelled Metamyelocytes % (Man) Cancelled Myelocytes % (Man) Cancelled Promyelocytes % (Man) Cancelled Blast Cells % (Manual) Cancelled Plasma Cell % (Manual) Cancelled Other Cells % Cancelled Nucleated RBC % Cancelled Neutrophils # (Manual) Cancelled Band Neutrophils # Cancelled Total Absolute Neuts Cancelled Lymphocytes # (Manual) Cancelled Prolymphocyte # Cancelled Reactive Lymphs # Cancelled Total Abs Lymphocytes Cancelled Monocytes # (Manual) Cancelled Eosinophils # (Manual) Cancelled Basophils # (Manual) Cancelled Metamyelocytes # (Man) Cancelled Myelocytes # (Manual) Cancelled Promyelocytes # (Man) Cancelled Blast Cells # (Man) Cancelled Plasma Cell # (Manual) Cancelled Other Cells # Cancelled Nucleated RBCs # (Man) Cancelled Hypersegmented Neuts Cancelled Hyposegmented Neuts Cancelled Hypogranular Neuts Cancelled Large Granular Lymphs Cancelled # Lrg Granular Lymphs Cancelled Hairy Cells Cancelled Smudge Cells Cancelled Toxic Granulation Cancelled Toxic Vacuolation Cancelled Dohle Bodies Cancelled [place] Rods Cancelled Platelet Estimate Cancelled Hypogranular Platelets Cancelled Clumped Platelets Cancelled Giant Platelets Cancelled Platelet Satelliting Cancelled RBC Morphology Cancelled Polychromasia Cancelled Hypochromasia Cancelled Poikilocytosis Cancelled Basophilic Stippling Cancelled Anisocytosis Cancelled Microcytosis Cancelled Macrocytosis Cancelled Spherocytes Cancelled Pappenheimer Bodies Cancelled Sickle Cells Cancelled Target Cells Cancelled Tear Drop Cells Cancelled Ovalocytes Cancelled Stomatocytes Cancelled [place] Bodies Cancelled Echinocytes Cancelled Acanthocytes (Spur) Cancelled Rouleaux Cancelled RBC Agglutinates Cancelled Schistocytes Cancelled Sezary Cell Cancelled Sodium 126 L (136-145) mmol/L Potassium TNP (3.5-5.1) mmol/L Chloride 98 (98-107) mmol/L Carbon Dioxide 19 L (21-32) mmol/L Anion Gap 9 (3-11) BUN 50 H (6-23) mg/dl Creatinine 6.19 H* (0.6-1.4) mg/dl Est Cr Clr Drug Dosing 13.2 ml/min Est GFR ( Amer) 10.1 ml/min Est GFR (Non-Af Amer) 8.7 ml/min BUN/Creatinine Ratio 8.1 L (10-20) Glucose 103 H (70-99(Fasting)) mg/dl POC Glucose 110 H (70-99) mg/dl Calcium 7.5 L (8.5-10.1) mg/dl Phosphorus 4.3 (2.5-4.9) mg/dl Magnesium 2.3 (1.7-2.4) mg/dl Total Bilirubin 4.2 H (0.2-1.0) mg/dl AST TNP ALT 150 H (7-52) U/L Alkaline Phosphatase 397 H (34-104) U/L Ammonia (18-72) umol/L Total Protein 4.5 L (6.0-8.3) gm/dl Albumin 2.9 L (3.4-5.0) gm/dl Globulin 1.6 L (2.5-4.0) gm/dl Albumin/Globulin Ratio 1.8 (0.9-2) Blood Parasites ID Cancelled 01/15/22 01/15/22 01/15/22 Range/Units 20:34 18:41 16:49 WBC RBC Hgb Hct MCV MCH MCHC RDW Std Deviation RDW Coeff of Rashi Plt Count MPV Immature Gran % (Auto) Neut % (Auto) Lymph % (Auto) Kay % (Auto) Eos % (Auto) Baso % (Auto) Neut # (Auto) Lymph # (Auto) Kay # (Auto) Eos # (Auto) Baso # (Auto) Immature Gran # (Auto) Absolute Nucleated RBC Nucleated RBC % (auto) Neutrophils % (Manual) Band Neutrophils % Lymphocytes % (Manual) Prolymphocyte % Reactive Lymphs % (Man) Monocytes % (Manual) Eosinophils % (Manual) Basophils % (Manual) Metamyelocytes % (Man) Myelocytes % (Man) Promyelocytes % (Man) Blast Cells % (Manual) Plasma Cell % (Manual) Other Cells % Nucleated RBC % Neutrophils # (Manual) Band Neutrophils # Total Absolute Neuts Lymphocytes # (Manual) Prolymphocyte # Reactive Lymphs # Total Abs Lymphocytes Monocytes # (Manual) Eosinophils # (Manual) Basophils # (Manual) Metamyelocytes # (Man) Myelocytes # (Manual) Promyelocytes # (Man) Blast Cells # (Man) Plasma Cell # (Manual) Other Cells # Nucleated RBCs # (Man) Hypersegmented Neuts Hyposegmented Neuts Hypogranular Neuts Large Granular Lymphs # Lrg Granular Lymphs Hairy Cells Smudge Cells Toxic Granulation Toxic Vacuolation Dohle Bodies Kanwal Rods Platelet Estimate Hypogranular Platelets Clumped Platelets Giant Platelets Platelet Satelliting RBC Morphology Polychromasia Hypochromasia Poikilocytosis Basophilic Stippling Anisocytosis Microcytosis Macrocytosis Spherocytes Pappenheimer Bodies Sickle Cells Target Cells Tear Drop Cells Ovalocytes Stomatocytes [place] Bodies Echinocytes Acanthocytes (Spur) Rouleaux RBC Agglutinates Schistocytes Sezary Cell Sodium (136-145) mmol/L Potassium (3.5-5.1) mmol/L Chloride (98-107) mmol/L Carbon Dioxide (21-32) mmol/L Anion Gap (3-11) BUN (6-23) mg/dl Creatinine (0.6-1.4) mg/dl Est Cr Clr Drug Dosing ml/min Est GFR ( Amer) ml/min Est GFR (Non-Af Amer) ml/min BUN/Creatinine Ratio (10-20) Glucose (70-99(Fasting)) mg/dl POC Glucose 120 H 129 H (70-99) mg/dl Calcium (8.5-10.1) mg/dl Phosphorus (2.5-4.9) mg/dl Magnesium (1.7-2.4) mg/dl Total Bilirubin (0.2-1.0) mg/dl AST ALT (7-52) U/L Alkaline Phosphatase (34-104) U/L Ammonia 33.0 (18-72) umol/L Total Protein (6.0-8.3) gm/dl Albumin (3.4-5.0) gm/dl Globulin (2.5-4.0) gm/dl Albumin/Globulin Ratio (0.9-2) Blood Parasites ID 01/15/22 Range/Units 16:11 WBC RBC Hgb Hct MCV MCH MCHC RDW Std Deviation RDW Coeff of Rashi Plt Count MPV Immature Gran % (Auto) Neut % (Auto) Lymph % (Auto) Kay % (Auto) Eos % (Auto) Baso % (Auto) Neut # (Auto) Lymph # (Auto) Kay # (Auto) Eos # (Auto) Baso # (Auto) Immature Gran # (Auto) Absolute Nucleated RBC Nucleated RBC % (auto) Neutrophils % (Manual) Band Neutrophils % Lymphocytes % (Manual) Prolymphocyte % Reactive Lymphs % (Man) Monocytes % (Manual) Eosinophils % (Manual) Basophils % (Manual) Metamyelocytes % (Man) Myelocytes % (Man) Promyelocytes % (Man) Blast Cells % (Manual) Plasma Cell % (Manual) Other Cells % Nucleated RBC % Neutrophils # (Manual) Band Neutrophils # Total Absolute Neuts Lymphocytes # (Manual) Prolymphocyte # Reactive Lymphs # Total Abs Lymphocytes Monocytes # (Manual) Eosinophils # (Manual) Basophils # (Manual) Metamyelocytes # (Man) Myelocytes # (Manual) Promyelocytes # (Man) Blast Cells # (Man) Plasma Cell # (Manual) Other Cells # Nucleated RBCs # (Man) Hypersegmented Neuts Hyposegmented Neuts Hypogranular Neuts Large Granular Lymphs # Lrg Granular Lymphs Hairy Cells Smudge Cells Toxic Granulation Toxic Vacuolation Dohle Bodies Kanwal Rods Platelet Estimate Hypogranular Platelets Clumped Platelets Giant Platelets Platelet Satelliting RBC Morphology Polychromasia Hypochromasia Poikilocytosis Basophilic Stippling Anisocytosis Microcytosis Macrocytosis Spherocytes Pappenheimer Bodies Sickle Cells Target Cells Tear Drop Cells Ovalocytes Stomatocytes [place] Bodies Echinocytes Acanthocytes (Spur) Rouleaux RBC Agglutinates Schistocytes Sezary Cell Sodium 124 L (136-145) mmol/L Potassium 3.8 (3.5-5.1) mmol/L Chloride 96 L (98-107) mmol/L Carbon Dioxide 18 L (21-32) mmol/L Anion Gap 10 (3-11) BUN 45 H (6-23) mg/dl Creatinine 6.35 H* D (0.6-1.4) mg/dl Est Cr Clr Drug Dosing 12.9 ml/min Est GFR ( Amer) 9.8 ml/min Est GFR (Non-Af Amer) 8.5 ml/min BUN/Creatinine Ratio 7.1 L (10-20) Glucose 119 H (70-99(Fasting)) mg/dl POC Glucose (70-99) mg/dl Calcium 7.6 L (8.5-10.1) mg/dl Phosphorus (2.5-4.9) mg/dl Magnesium (1.7-2.4) mg/dl Total Bilirubin (0.2-1.0) mg/dl AST ALT (7-52) U/L Alkaline Phosphatase (34-104) U/L Ammonia (18-72) umol/L Total Protein (6.0-8.3) gm/dl Albumin (3.4-5.0) gm/dl Globulin (2.5-4.0) gm/dl Albumin/Globulin Ratio (0.9-2) Blood Parasites ID
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
[2022-01-16] MEDS: CEFEPIME 2,000 MG in SYRINGE 0 ML IV SCH (16:11)
--- NOTE | 2022-01-16 21:45 | Nephrology Progress Note ---
Date of Service January 16, 2022 Assessment & Plan (1) Acute renal failure: Plan: nonoliguric Stage 3 IRIS in the setting of severe sepsis from cholangitis/pancreatitis/IV contrast exposure/ lisinopril use/ recent hypotension > creatinine uptrend stopped with IVF though these were held d/t worsening serum sodium. now rapid creat uptrend resumed. baseline creatinine 0.7. -no indication for urgent dialysis; though cannot rule out need this admission; -repeat UA most c/w ATN on 01/14 -strict I/O > cont hummel for now-UOP improved. -recommend 1 L of 1/2 NS w/ 75 mEq/L sodium bicarb at 80 ml/hr > order in-- Chemistries improved,1 more bag orderd for today, -daily bmp (2) Hyponatremia: Plan: hyponatremia. ? mild fluid overload (CXR) versus mild volume depletion (pancreatitis) >> his sodium worsened w/ IVF to 121. - liley 2/ volume depletion , improved with Iv fluids. - 1 more litre ordered today. Admission and Anticipated Discharge Date Admission Date: January 10, 2022 Subjective Feeling better today although "still foggy" and has unsteadiness of hands" I cannot use my computer" Tolerating lunch today without issue.UOP Improved.. Review of Systems Review of Systems: No fever, chills, CP, SOB, N/V/D, abdominal pain or diarrhea Results & Data ([facility]) Vital Signs (Past 12 Hours) Vital Signs Temp Pulse Resp BP Pulse Ox 01/16/22 14:13 36.8 C 68 18 163/55 H 97 Laboratory Results 01/16/22 08:50 01/16/22 08:50
[2022-01-17] MEDS: metroNIDAZOLE 500 MG/100 ML BAG IV SCH ×3 (01:27→16:15)
[2022-01-17] MEDS: SODIUM BICARBONATE 8.4% 75 MEQ in SODIUM CHLORIDE 0.45 % 1,000 ML IV SCH (04:11)
--- NOTE | 2022-01-17 05:15 | Surgery Progress Note ---
Date of Service January 17, 2022 Assessment & Plan (1) Acute gallstone pancreatitis: (2) Acute cholecystitis: (3) Acute renal failure: Plan: Postoperative day #6 laparoscopic cholecystectomy Postop day #4 ERCP Patient is doing well from a surgical standpoint: Continue analgesics as needed Continue diet as tolerated Developed acute renal failure in the setting of severe sepsis from cholangitis and pancreatitis compounded by IV contrast exposure, hypotension, and lisinopril use: Continue management as directed by primary service Avoid nephrotoxins Continue to monitor I's and O's Check labs when available Admission and Anticipated Discharge Date Admission Date: January 10, 2022 Supervising Physician Co-Signing Physician Notes Patient has significant amount of clear urine in the [place] bag slightly indicating that his renal function is improving lab this morning is pending Subjective Patient is resting comfortably in bed. He notes he is tolerating a diet. He denies any nausea or vomiting. He denies significant abdominal pain. He denies any fevers, shakes, chills Physical Exam Gastrointestinal (Abdomen): Abdomen is rotund but soft. It is nonrigid and nondistended. All surgical incisions are well approximated and healing nicely without signs of infection. There is no pain noted with palpation Results & Data ([facility]) Vital Signs (Past 12 Hours) Vital Signs Temp Pulse Resp BP Pulse Ox 01/16/22 23:03 37.2 C 76 18 162/59 H 95 PG Care Time/CCT Total # of Minutes Spent Total Time Spent with Patient: Total time spent is greater than 50% in coordination of care (as documented) at patient's floor/unit and/or counseling patient: Coding Level of Care Code None Diagnoses Acute gallstone pancreatitis K85.10 Acute cholecystitis K81.0 Acute renal failure N17.9
[2022-01-17] MEDS: CYANOCOBALAMIN (B-12) 500 MCG TABLET PO SCH (08:19)
[2022-01-17] MEDS: allopurinoL 300 MG TAB PO SCH (08:19)
[2022-01-17] MEDS: PANTOprazole 40 MG TAB PO SCH ×2 (08:20→20:18)
[2022-01-17] MEDS: SERTRALINE HCL 50 MG TABLET PO SCH (08:20)
[2022-01-17] MEDS: INSULIN ASPART PER UNIT SC SCH ×4 (08:46→20:17)
[2022-01-17] MEDS: LANTUS PER UNIT CHARGE SQ SCH (08:46)
[2022-01-17 09:24] LABS: BUN Creatinine Ratio 12.4 (10-20); Calcium 8.1 mg/dl (8.5-10.1); Creatinine Clr Calc Pharmacy 16.7 ml/min; Est GFR (African American) 13.4 ml/min; Est GFR (Non-African American) 11.6 ml/min; Magnesium 2.1 mg/dl (1.7-2.4); Potassium 3.5 mmol/L (3.5-5.1)
--- NOTE | 2022-01-17 11:23 | Nephrology Progress Note ---
Date of Service January 17, 2022 Assessment & Plan Admission and Anticipated Discharge Date Admission Date: January 10, 2022 Subjective Assessment & Plan (1) Acute renal failure: Plan: nonoliguric Stage 3 IRIS in the setting of severe sepsis from cholangitis/pancreatitis/IV contrast exposure/ lisinopril use/ recent hypotension > creatinine uptrend stopped with IVF though these were held d/t worsening serum sodium.baseline creatinine 0.7. -would hold/stop/lower dose on lyrica d/t metabolites' tendency to accumulate in renal failure Hold Lisinopril for now. -repeat UA most c/w ATN on 01/14 -strict I/O > cont hummel for now Creat peaked and now trending down with substantial increase in UO. now good prognosis. No dialysis (2) Hyponatremia: Plan: hyponatremia not severe. ? mild fluid overload (CXR) versus mild volume depletion (pancreatitis) >> his sodium worsened w/ IVF last evening to 121. some confusion this afternoon possibly, sNa mid 120s at the time -urine, serum osms and rd urine Na ordered >> not particularly revealing of fluid overload or volume depletion na better and now 131. Auto diuresing now Subjective seen on rounds this am. Lot more urine now--3800 ml yesterday. Abd pain improved; no sob or edema; on liquid diet. labs better Review of Systems Review of Systems: All systems reviewed & are unremarkable except as noted in Subjective Physical Exam Constitutional: well developed (on RA), well nourished, + obese, cooperative and comfortable; no acute distress Eyes: EOM intact bilaterally ENMT: Ears: no external ear abnormality Nose: no external nose abnormality Mouth: + dry oral mucous membranes Neck: no nuchal rigidity Respiratory: normal respiratory effort Auscultation: + diminished lung sounds Cardiovascular: Rate/Rhythm: regular rate and regular rhythm Extremities: + edema (at most trace LLE) Gastrointestinal (Abdomen): Inspection/Auscultation: + abdomen distended and normal bowel sounds Percussion/Palpation: abdomen soft; abdomen nontender Musculoskeletal: Extremities: strength 5/5 throughout and + lower leg abnormality (s/p R AKA) Skin: no rashes, warm and dry Neurologic: reilly, fluent speech, no tremor Psychiatric: Orientation: oriented x 3 Speech: normal rate/rhythm/volume of speech Results & Data ([facility]) Vital Signs (Past 12 Hours) Vital Signs Temp Pulse Resp BP Pulse Ox O2 Del Method 01/17/22 07:28 36.8 C 71 16 146/74 H 96 Room Air
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
[2022-01-17] MEDS: CEFEPIME 2,000 MG in SYRINGE 0 ML IV SCH (16:15)
[2022-01-18] MEDS: metroNIDAZOLE 500 MG/100 ML BAG IV SCH ×3 (01:06→16:05)
--- NOTE | 2022-01-18 05:23 | Surgery Progress Note ---
Date of Service January 18, 2022 Assessment & Plan (1) Acute gallstone pancreatitis: (2) Acute cholecystitis: (3) Acute renal failure: Plan: Postoperative day #7 laparoscopic cholecystectomy Postop day #5 ERCP Patient used to do well from a surgical standpoint: Continue analgesics as needed Continue diet as tolerated Developed acute renal failure in the setting of severe sepsis from cholangitis and pancreatitis compounded by IV contrast exposure, hypotension, and lisinopril use: Urine output has improved and creatinine noted to decrease Continue management as directed by primary service Avoid nephrotoxins Continue to monitor I's and O's Check labs when available Admission and Anticipated Discharge Date Admission Date: January 10, 2022 Supervising Physician Co-Signing Physician Notes As per Jared Ruiz physician refinery operator assistant Patient's lab indicate creatinine is trending down reflecting his clinical picture of significant diuresing in last few days Subjective Patient is resting comfortably in bed. He continues to tolerate diet. No a bdominal pain reported. Physical Exam Gastrointestinal (Abdomen): Abdomen is soft and nonrigid. Surgical incisions appear to be healing well. There is minimal to no pain with palpation of abdomen. Results & Data ([facility]) Vital Signs (Past 12 Hours) Vital Signs Temp Pulse Resp BP Pulse Ox 01/17/22 22:48 36.8 C 74 16 162/67 H 95 PG Care Time/CCT Total # of Minutes Spent Total Time Spent with Patient: Total time spent is greater than 50% in coordination of care (as documented) at patient's floor/unit and/or counseling patient: Coding Level of Care Code None Diagnoses Acute gallstone pancreatitis K85.10 Acute cholecystitis K81.0 Acute renal failure N17.9
[2022-01-18] MEDS: SERTRALINE HCL 50 MG TABLET PO SCH (08:02)
[2022-01-18] MEDS: allopurinoL 300 MG TAB PO SCH (08:02)
[2022-01-18] MEDS: CYANOCOBALAMIN (B-12) 500 MCG TABLET PO SCH (08:02)
[2022-01-18] MEDS: PANTOprazole 40 MG TAB PO SCH ×2 (08:02→20:38)
[2022-01-18] MEDS: LANTUS PER UNIT CHARGE SQ SCH (08:47)
[2022-01-18] MEDS: INSULIN ASPART PER UNIT SC SCH ×4 (08:47→20:34)
[2022-01-18 10:54] LABS: BUN Creatinine Ratio 18.4 (10-20); Calcium 8.2 mg/dl (8.5-10.1); Est GFR (African American) 26.1 ml/min; Est GFR (Non-African American) 22.5 ml/min; Potassium 3.4 mmol/L (3.5-5.1)
[2022-01-18] MEDS ORDERED: POTASSIUM CHLORIDE CRTAB 20 MEQ TABCR PO STA ×2 (11:09→14:04)
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
[2022-01-18] MEDS: CEFEPIME 2,000 MG in SYRINGE 0 ML IV SCH (16:05)
[2022-01-19] MEDS: metroNIDAZOLE 500 MG/100 ML BAG IV SCH ×2 (01:10→08:50)
[2022-01-19 07:24] LABS: Anion Gap 5 (3-11); BUN Creatinine Ratio 24.6 (10-20); Blood Urea Nitrogen 44 mg/dl (6-23); Calcium 8.4 mg/dl (8.5-10.1); Carbon Dioxide 25 mmol/L (21-32); Chloride 111 mmol/L (98-107); Creatinine Clr Calc Pharmacy 45.8 ml/min; Est GFR (African American) 45.4 ml/min; Est GFR (Non-African American) 39.2 ml/min; Glucose 127 mg/dl (70-99(Fasting)); Sodium 141 mmol/L (136-145)
[2022-01-19 08:29] LABS: Albumin Level 3.4 gm/dl (3.4-5.0); BUN Creatinine Ratio 24.9 (10-20); Bilirubin Direct 0.6 mg/dl (0-0.2); Bilirubin,Total 1.4 mg/dl (0.2-1.0); Calcium 8.5 mg/dl (8.5-10.1); Creatinine Clr Calc Pharmacy 48.5 ml/min; Est GFR (African American) 48.7 ml/min; Potassium 3.7 mmol/L (3.5-5.1); Total Protein 5.3 gm/dl (6.0-8.3)
[2022-01-19] MEDS: PANTOprazole 40 MG TAB PO SCH (08:49)
[2022-01-19] MEDS: SERTRALINE HCL 50 MG TABLET PO SCH (08:50)
[2022-01-19] MEDS: CYANOCOBALAMIN (B-12) 500 MCG TABLET PO SCH (08:50)
[2022-01-19] MEDS: INSULIN ASPART PER UNIT SC SCH ×2 (08:55→12:38)
[2022-01-19] MEDS: LANTUS PER UNIT CHARGE SQ SCH (08:56)
[2022-01-19] MEDS: allopurinoL 300 MG TAB PO SCH (09:15)
[2022-01-19 09:19] LABS: Basophils # (auto) 0.03 K/uL (0-0.2); Basophils % (auto) 0.4 %; Eosinophils # (auto) 0.51 K/uL (0-0.50); Eosinophils % (auto) 6.8 %; Hemoglobin 12.9 g/dl (14.0-18.0); Immature Granulocytes # (auto) 0.09 K/uL (0.00-0.02); Immature Granulocytes % (auto) 1.2 %; Lymphocytes # (auto) 1.72 K/uL (1.2-3.4); Mean Corpuscular Hemoglobin 29.6 pg (25.0-34.0); Mean Corpuscular Hgb Conc 33.9 g/dL (32.0-36.0); Mean Corpuscular Volume 87.2 fL (80.0-100.0); Mean Platelet Volume 10.1 fL (9.4-12.4); Monocytes % (auto) 9.4 %; Neutrophils # (auto) 4.42 K/uL (1.4-6.5); Neutrophils % (auto) 59.2 %; Platelet Count 153 K/uL (130-400); RDW Coefficient of Variation 14.3 % (11.5-14.5); RDW Standard Deviation 46.1 fL (36.4-46.3); Red Blood Count 4.36 M/uL (4.63-6.08); White Blood Count 7.47 K/ul (4.8-10.8)
[2022-01-19] MEDS ORDERED: CEFEPIME 2,000 MG in SYRINGE 0 ML IV SCH (09:30)
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
[2022-01-20 18:43] LABS: Uric Acid, Random Urine 31 mg/dL
== END 2022-01-19 16:10 | disposition home or self-care (01) | DRG 417 ==
LOC: ED 13:24 → 3W 16:38 → SUATTDRO 16:38 → 3W 19:29

== ENCOUNTER 2024-08-15 06:38 | Inpatient (IN) ==
--- NOTE | 2024-07-17 11:29 | PAT Medication Instructions ---
Medication Instructions Date of Service July 17, 2024 Home Medications allopurinol 300 mg tablet 300 mg PO QAM aspirin 81 mg tablet,delayed release 81 mg PO QAM ferrous sulfate 325 mg (65 mg iron) tablet (iron) 325 mg PO QAM sertraline 50 mg tablet 125 mg PO QAM tramadol 50 mg tablet 100 mg PO Q6H PRN Pain valacyclovir 1 gram tablet 1,000 mg PO UD PRN Cold Sores empagliflozin 25 mg tablet (Jardiance) 25 mg PO QAM lisinopril 10 mg tablet 10 mg PO BID metformin 500 mg tablet 1,000 mg PO BID semaglutide 0.25 mg or 0.5 mg (2 mg/3 mL) subcutaneous pen injector (Ozempic) 0.5 mg subcut Q7D Lactobacillus acidophilus 10 billion cell capsule (Probiotic) 10 cell PO QAM atorvastatin 40 mg tablet 40 mg PO HS coenzyme Q10 200 mg capsule (Co Q-10) 200 mg PO QAM [id number] 300 mcg-K 60 mcg-lycop 600 mcg-lutein 300 mcg tablet (Men 50 Plus Multivitamin) 1 tab PO QAM pregabalin 150 mg capsule 150 mg PO BID Continue as directed valacyclovir 1 gram tablet 1,000 mg PO UD PRN Cold Sores (if needed) STOP taking 2 weeks before surgery coenzyme Q10 200 mg capsule (Co Q-10) 200 mg PO QAM STOP taking at least 7 days before surgery semaglutide 0.25 mg or 0.5 mg (2 mg/3 mL) subcutaneous pen injector (Ozempic) 0.5 mg subcut Q7D STOP taking 3 days before surgery empagliflozin 25 mg tablet (Jardiance) 25 mg PO QAM DO NOT take the morning of surgery ferrous sulfate 325 mg (65 mg iron) tablet (iron) 325 mg PO QAM lisinopril 10 mg tablet 10 mg PO BID metformin 500 mg tablet 1,000 mg PO BID Lactobacillus acidophilus 10 billion cell capsule (Probiotic) 10 cell PO QAM [id number] 300 mcg-K 60 mcg-lycop 600 mcg-lutein 300 mcg tablet (Men 50 Plus Multivitamin) 1 tab PO QAM Take morning of surgery With a small sip of water, OTHERWISE NOTHING TO EAT OR DRINK AFTER MIDNIGHT: allopurinol 300 mg tablet 300 mg PO QAM aspirin 81 mg tablet,delayed release 81 mg PO QAM (unless surgeon directed otherwise) sertraline 50 mg tablet 125 mg PO QAM tramadol 50 mg tablet 100 mg PO Q6H PRN Pain (if needed) pregabalin 150 mg capsule 150 mg PO BID Take evening before surgery tramadol 50 mg tablet 100 mg PO Q6H PRN Pain (if needed) lisinopril 10 mg tablet 10 mg PO BID metformin 500 mg tablet 1,000 mg PO BID atorvastatin 40 mg tablet 40 mg PO HS pregabalin 150 mg capsule 150 mg PO BID Other Notes If you have any questions please call us at [phone] or [phone] or [phone] or [phone]
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
[2024-08-15] MEDS: LR 60ML/HR IV SCH (07:06)
[2024-08-15] MEDS: CeleBREX 200 MG CAP PO SCH (07:09)
[2024-08-15] MEDS: ACETAMINOPHEN 500 MG TAB PO SCH (07:09)
[2024-08-15] MEDS: GABAPENTIN 300 MG CAP PO SCH (07:10)
[2024-08-15] MEDS ORDERED: LIDOCAINE 2% 2 ML VIAL/AMP(20MG/ML) INFIL ONE (07:12)
[2024-08-15] MEDS ORDERED: ROCURONIUM BROMIDE 10 MG/ML 5 ML VIAL IV ONE (07:12)
[2024-08-15] MEDS ORDERED: PROPOFOL IV EMULSION 10 MG/ML 20 ML VIAL IV ONE (07:12)
[2024-08-15] MEDS ORDERED: DEXAMETHASONE SOD INJ 4 MG/ML VIAL ONE (07:12)
[2024-08-15] MEDS ORDERED: ONDANSETRON INJ 2 MG/ML 2 ML VIAL ONE (07:12)
[2024-08-15] MEDS ORDERED: GLYCOPYRROLATE 0.2 MG/ML VIAL ONE (07:12)
[2024-08-15] MEDS ORDERED: MIDAZOLAM HCL 1 MG/ML 2ML VIAL ONE (07:13)
[2024-08-15] MEDS ORDERED: fentaNYL citrate PF 100 MCG/2 ML VIAL ONE ×2 (07:13→09:04)
[2024-08-15] MEDS ORDERED: SUGAMMADEX SODIUM 200 MG/2 ML VIAL IV ONE (07:19)
[2024-08-15] MEDS ORDERED: ePHEDrine sulfate 50 MG/ML AMP IV PRN (07:35)
[2024-08-15] MEDS ORDERED: ATROPINE SULFATE 0.1 MG/ML 10ML SYR IV PRN (07:35)
[2024-08-15] MEDS ORDERED: fentaNYL citrate PF 100 MCG/2 ML VIAL IV PRN (07:35)
[2024-08-15] MEDS ORDERED: ONDANSETRON INJ 2 MG/ML 2 ML VIAL IV PRN ×2 (07:35→11:29)
[2024-08-15] MEDS: LACTATED RINGER'S 1,000 ML IV SCH (07:39)
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
--- OUTSIDE RECORDS SUMMARY | 2024-08-15 07:39 | External Medical Summary | Summary of Care ---
Author Name Unknown Organization [facility] Address [address] [facility] [facility] [address] Phone [phone] Care Team Providers Care Vegetable Farm Manager Name Role Phone Tiago CHAPPELL MD, Tejinder Fonseca Primary Care Provider [phone] Encounter Details Date Type Department Care Team (Late st Contact Info) Description 07/24/2024 Orders Only Family Practice [facility] [place] [address] [facility] [place] [address] Tejinder Ordoñez III, MD [address] [facility] [place] [address] Allergies Active Allergy Reactions Criticality Noted Date Comments Bee Stings Anaphylaxis High 09/09/2007 Vespid allergies Bupropion Hcl Hives Medium 05/03/2006 documented as of this encounter (statuses as of 07/24/2024) Medications Blood Glucose Monitoring Suppl (ONE TOUCH [...] 5000 Booster Plus 1.1 % Dental Paste [place] onto teeth daily. 4 Active Allopurinol 300 [...] ONCE DAILY 225 Tablet 1 5 Active valACYclovir HCl 1 GM Oral Tablet (Valtrex)Indic ations:Herpes simplex virus infection TAKE 2 TABLETS BY MOUTH EVERY 12 HOURS 16 Tablet 5 Active traMADol HCl 50 MG Oral Tablet (Ultram)Indica tions:Pain Take 1 Tablet by mouth every 8 hours as needed for Pain, Moderate. 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 2003 Sleep apnea 08/29/2003 Overview (11/30/2011): CPAP since 2003 FAMILY HX MALIG.NEOPLASM PROSTATE father 002 ALCOHOL ABUSE-IN REMISS Overview (11/30/2011): Last drink 09/20/1986 DRUG ABUSE NEC-IN REMISS LUMB-LUMBOSAC DISC DEGEN documented as of this encounter (statuses as of 07/24/2024) Resolved Problems Problem Noted Date Diagnosed Date [...] 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, 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[employer] multiple 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 Multiple crushing injuries of lower limb 02/07/2007 05/11/2017 Overview (08/21/2012): Right AKA NONSPECIF SKIN ERUPT NEC Tobacco use disorder 012 Gouty arthropathy 02/14/2009 Overview (08/06/2015): ICD-9 Code Update ICD-10 update of inactive term documented as of this encounter (statuses as of 07/24/2024) Immunizations Name Administration Dates Next Due COVID-19, MRNA-LNP, PF, 50 M CG/0.5 mL, 12 YRS AND ABOVE, IM (MODERNA-Spikevax) 03/18/2024,03/13/2023 HEP A - Hepatitis A (Adult > 18 yrs) 03/17/2006, 07/15/2005 Hepatitis B, 20+ yrs 08/24/2016,03/23/2016,02/20 PPD 01/18/2013 Pneumococcal Conjugate Vacci ne, 20-valent ([id number]) 04/28/2022 Pneumococcal Polysaccharide PPV23 (Pneumovax) 04/26/2008 RSV [...] Industry Job Start Date Job End Date 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 Not on file 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 Not on file Not on file SSD Not on file Not on file Not on file 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 Not on file Not on file Not on file documented as of this encounter Plan of Treatment Upcoming Encounters Date Type Department Care Team (Late st Contact Info) Description 08/23/2024 12:40 PM EDT Office Visit Family Practice [facility] [place] [address] [place] [address] Tejinder Ordoñez III, MD [address] [place] [address] 09/26/2024 10:30 AM EDT Office Visit Pharmacy, [facility] [address] [address] [facility] [place] [address] [address] Scheduled Procedures Name Priority Associated Diagnoses Date/Ti [...] 0 11/17/2022, 08/05/2020, Additional history exists GFR 05/29/2025 2024, 05/04, 03/13/2024, Additional history exists Lipid [...] this encounter Medical Devices Implanted Type Area Financial Adviser Device Identifier Shelf Expiration Date Model / Serial / Lot Dbx 10cc [id number] - [id number] Implanted:Qty : 1 on 06/13/2007 at OR [facility] Tissue - Human MUSCULOSKELETAL TRANSPLANT FND [id number] / / Chip Cancellous 30cc [id number] - [id number] Implanted:Qty : 1 on 06/13/2007 at OR [facility] Tissue - Human MUSCULOSKELETAL TRANSPLANT FND [id number] / / Filter Cava Vena Fem [id number] - [id number] Implanted:Qty : 1 on 02/07/2007 at OR [facility] N/A: Abdomen COOK GROUP 11/01/2007 [id number] / / [id number] Nail Ti Dist Fem 12mm 450.828s - [id number] Implanted:Qty : 1 on 02/07/2007 at OR [facility] Right: Leg Upper SYNTHES 06/03/2014 450.828S / / [id number] Screw Lock Troch 5x38 458.938 - [id number] Implanted:Qty : 1 on 02/07/2007 at OR [facility] Right: Leg Upper SYNTHES 458.938 / / [place] Locking Ti 6mm 450.870 - [id number] Implanted:Qty : 1 on 02/07/2007 at [facility] Right: Leg Upper SYNTHES 450.870 / / [place] Locking Ti 6mm 450.864 - [id number] Implanted:Qty : 1 on 02/07/2007 at OR [facility] Right: Leg Upper SYNTHES 450.864 / / Screw Lock Troch 5x40 458.940 - [id number] Implanted:Qty : 1 on 02/07/2007 at OR [facility] Right: Leg Upper SYNTHES 458.940 / / Screw Cannul 6.5mm 32t 208.438 - [id number] Implanted:Qty : 1 on 02/07/2007 at OR [facility] Right: Leg Upper SYNTHES 208.438 / / Schanz Screws 294.784 - [id number] Implanted:Qty : 2 on 02/07/2007 at OR [facility] Right: Leg Upper SYNTHES 294.784 / / Schanz Screws 294.786 - [id number] Implanted:Qty : 1 on 02/07/2007 at OR [facility] Right: Leg Lower SYNTHES 294.786 / / Screw Cannul 4.5mm 214.540 - [id number] Implanted:Qty : 1 on 02/09/2007 at OR [facility] Right: Knee SYNTHES 214.540 / / Screw Cannul 4.5mm 214.546 - [id number] Implanted:Qty : 1 on 02/09/2007 at OR [facility] Right: Knee SYNTHES 214.546 / / M04.503.226.0 1 - [id number] Implanted:Qty : 12 on 02/11/2007 at OR [facility] Right: Face 04.503.22 6.01 / / Description:Matrix Midface s elf drilling screw M04.503.373 - [id number] Implanted:Qty : 1 on 02/11/2007 at OR [facility] Right: Face 04.503.37 3 / / Description:Matrix Midface O rbital Rim Plate (PINK) Implant On The Fly - [id number] Implanted:Qty : 1 on 02/11/2007 at OR [facility] POREX DEDRA : SURGICAL INC 07/01/2016 18495 / / [id number] Description:MEDPOR Surgical ImplantCAT#[id number] DIM [id number] mmMEDPOR TITANLOT#[id number] Screw Cannul 7.3mm 209.885 - [id number] Implanted:Qty : 1 on 02/21/2007 at OR [facility] Right: Lower Arm SYNTHES 209.885 / / Washer 13.0mm 219.99 - [id number] Implanted:Qty : 3 on 02/21/2007 at OR [facility] Right: Lower Arm SYNTHES 219.99 / / Screw Cannul 7.3mm 209.875 - [id number] Implanted:Qty : 1 on 02/21/2007 at OR [facility] Right: Lower Arm SYNTHES 209.875 / / Screw Cannul 7.3mm 209.860 - [id number] Implanted:Qty : 1 on 02/21/2007 at OR [facility] Right: Lower Arm SYNTHES 209.860 / / Wire [place] 2mm 292.41 - [id number] Implanted:Qty : 3 on 02/21/2007 at OR [facility] Right: Lower Arm SYNTHES 292.41 / / Bone Implant Op-1 100-25 - [id number] Implanted:Qty : 1 on 01/26/2008 at OR [facility] Right: Leg Upper CHARBEL 11/08/2008 100-25 / / [id number] Bone Implant Op-1 10025 - [id number] Implanted:Qty : 1 on 01/26/2008 at OR [facility] Right: Leg Upper CAHRBEL 11/08/2008 100-25 / / [id number] Vitoss Bone Graft Substitute 10 Ml Implanted:Qty : 1 on 01/26/2008 at OR [facility] Right: Leg Upper 07/01/2009 [id number] / / [id number] Ventralex St Hernia Patch Medium Implanted:Qty : 1 on 01/30/2015 by Andria Zuniga MD at OR [facility] N/A: Abdomen 08/29/2015 [id number] / / [id number] Preshaped Mesh W/Keyhole 2x4" Implanted:Qty : 1 on 01/30/2015 by Andria Zuniga MD at OR [facility] Right: Groin 11/30/2018 [id number] / / [id number] documented as of this encounter Procedures Procedure Name Priority Date/Time Associated Diagnosis Comments CHEMISTRY-OUTSIDE Routine 2024 documented in this encounter Results * (ABNORMAL) CHEMISTRY-OUTSIDE (2024) Not all results display below - see scan for full detail OUTSIDE LAB (SEE SCANNED REPORT) Comment:SCAN INCLUDES - CBCD , PT INR, PTT, BMP CREATININE 0.72 0.6 - 1.4 MG/DL OUTSIDE LAB (SEE SCANNED REPORT) EGFR 100.13 OUTSIDE LA B (SEE SCANNED REPORT) POTASSIUM 3.6 3.5 - 5.1 MMOL/L OUTSIDE LAB (SEE SCANNED REPORT) GLUCOSE 136(A) 70 - 99 MG/DL OUTSIDE LAB (SEE SCANNED REPORT) HOURS FASTING OUTSID E LAB (SEE SCANNED REPORT) TRIGLYCERIDES-OUT SIDE LAB OUTSIDE LAB (SEE SCANNED REPORT) CHOLESTEROL-OUTSI DE LAB OUTSIDE LAB (SEE SCANNED REPORT) HDL-OUTSIDE LAB OUTS CORNELIUS LAB (SEE SCANNED REPORT) CHOL/HDL RATIO-OUTSIDE LAB OUTSIDE LA B (SEE SCANNED REPORT) LDL (CALCULATED)-OUTS CORNELIUS LAB OUTSIDE LAB (SEE SCANNED REPORT) LDL (DIRECT MEASURE)-OUTSIDE LAB OUTSIDE LAB (SEE SCANNED REPORT) HEMOGLOBIN, T0C-XXYLLHY LAB OUTSIDE LAB (SEE SCANNED REPORT) PHOSPHORUS-OUTSID E LAB OUTSIDE LAB (SEE SCANNED REPORT) PTH-OUTSIDE LAB OUTS CORNELIUS LAB (SEE SCANNED REPORT) MICROALBUMIN RATIO-OUTSIDE LAB OUTSIDE LA B (SEE SCANNED REPORT) PROTEIN, UA-OUTSIDE LAB OUTSIDE LAB (SEE SCANNED REPORT) HGB 16.0 14.0 - 18.0 G/DL OUTSIDE LAB (SEE SCANNED REPORT) 2024 us Jules Randolph DO LABORATORY Fin al Result OUTSIDE LAB (SEE SCANNED REPORT) documented in this encounter Advance Directives * Full Code [...] 3:47 PM 03/09/2007 6:50 PM Care Teams Vegetable Farm Manager Relationship Specialty Start Date End Date Tejinder Ordoñez III, MD [address] [place] [address] PCP - General Family Medicine 05/29/16 documented as of this encounter
--- OUTSIDE RECORDS SUMMARY | 2024-08-15 07:39 | External Medical Summary | Summary of Care ---
Author Name Unknown Organization [facility] Address [address] [facility] [place] [address] Phone [phone] Care Team Providers Care Vp Product Name Role Phone Tiago CHAPPELL MD, Tejinder Fonseca Primary Care Provider [phone] Reason for Visit * Reason Onset Date Comments Medication Refill 07/28/2024 Encounter Details Date Type Department Care Team (Late st Contact Info) Description 07/28/2024 Refill Family Practice [facility] [place] [address] [facility] [place] [address] Tejinder Ordoñez III, MD [address] [facility] [address] Pain Allergies Active Allergy Reactions Criticality Noted Date Comments Bee Stings Anaphylaxis High 09/09/2007 Vespid allergies Bupropion Hcl Hives Medium 05/03/2006 documented as of this encounter (statuses as of 07/31/2024) Medications Blood Glucose Monitoring Suppl (ONE TOUCH [...] 5000 Booster Plus 1.1 % Dental Paste [place] onto teeth daily. 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 Multiple crushing injuries of lower limb 02/07/2007 05/11/2017 Overview (08/21/2012): Right AKA NONSPECIF SKIN ERUPT NEC Tobacco use disorder 012 Gouty arthropathy 02/14/2009 Overview (08/06/2015): ICD-9 Code Update ICD-10 update of inactive term documented as of this encounter (statuses as of 07/31/2024) Immunizations Name Administration Dates Next Due COVID-19, MRNA-LNP, PF, 50 M CG/0.5 mL, 12 YRS AND ABOVE, IM (MODERNA-Spikevax) 03/18/2024,03/13/2023 HEP A - Hepatitis A (Adult > 18 yrs) 03/17/2006, 07/15/2005 Hepatitis B, 20+ yrs 08/24/2016,03/23/2016,02/20 PPD 01/18/2013 Pneumococcal Conjugate Vacci ne, 20-valent ([id number]) 04/28/2022 Pneumococcal Polysaccharide PPV23 (Pneumovax) 04/26/2008 RSV [...] Industry Job Start Date Job End Date 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 Last Visit: 2024 (in office), Visit date not found (telemedicine) Next Visit: 08/23/2024 If no future appointments scheduled, and last appointment is greater than a year ago, please schedule patient for a follow-up appointment Last date the medication was ordered: 03/08/2024 Is this request for a controlled substance?No Urine Drug Screen: Results for orders placed or performed in visit on 06/03/23 PAIN MANAGEMENT DRUG PANEL, URINE W/ INTERPRETATION Result Value Pain Management Interpretation Based on the medication information provided: The absence of tramadol and o-desmethyltramadol is CONSISTENT with tramadol last dose taken one week prior to urine drug testing. Amphetamines Screen, U Negative Benzodiazepines Screen, U Negative Cannabinoids Screen, U Negative Cocaine Metabolite Screen, U Negative Fentanyl Screen, U Negative Hydrocodone Screen, U Negative Methadone Metabolite Screen, U Negative Morphine/Codeine Screen, U Negative Oxycodone Screen, U Negative Specimen Validity Interpretation Normal Creatinine, U 61 Narrative Cutoff Concentrations: Drug Level Amphetamines 500 ng/mL Benzodiazepines 100 ng/mL Cannabinoids 50 ng/mL Cocaine Metabolite 150 ng/mL Fentanyl 1 ng/mL Hydrocodone / Hydromorphone 300 ng/mL Methadone Metabolite 100 ng/mL Morphine / Codeine 300 ng/mL Oxycodone / Oxymorphone 100 ng/mL Screening results are presumptive and can only be used for medical purposes. Confirmatory testing is available upon request. Results for orders placed or performed in visit on 01/15/21 TOXICOLOGY, URINE SCREEN W/ CONFIRMATION Result Value Amphetamines Screen, U Negative Benzodiazepines Screen, U Negative Cannabinoids Screen, U Negative Cocaine Metabolite Screen, U Negative Hydrocodone Screen, U Negative Methadone Metabolite Screen, U Negative Morphine/Codeine Screen, U Negative Oxycodone Screen, U Negative Narrative Cutoff Concentrations: Drug Level Amphetamines 500 ng/mL Benzodiazepines 100 ng/mL Cannabinoids 50 ng/mL Cocaine Metabolite 150 ng/mL Hydrocodone / Hydromorphone 100 ng/mL Methadone Metabolite 100 ng/mL Morphine / Codeine 300 ng/mL Oxycodone / Oxymorphone 100 ng/mL Screening results are presumptive and can only be used for medical purposes. Positive screening results are reflexed to confirmatory testing. Patient Phone Numbers Labs: Lab Results Component Value Date/Time CREAT 0.72 2024 12:00 AM CREAT 0.8 12/22/2019 11:26 AM POTASSIUM 3.6 2024 12:00 AM POTASSIUM 4.5 12/22/2019 11:26 AM TSH 1.33 03/04/2015 10:15 AM LDL 77 03/13/2024 10:38 AM LDL 38 09/26/2019 04:33 PM LDL 61 04/11/2018 10:57 AM LDL 122 03/04/2015 10:15 AM ALT 25 03/13/2024 10:38 AM ALT 17 12/22/2019 11:26 AM HGBA1C 6.2 (H) 03/13/2024 10:38 AM HGBA1C 6.1 (H) 05/07/2020 12:44 PM documented in this encounter Plan of Treatment Upcoming Encounters Date Type Department Care Team (Late st Contact Info) Description 08/23/2024 12:40 PM EDT Office Visit Family Practice [facility] [address] [facility] [place] [address] Tejinder Ordoñez III, MD [address] [facility] [place] [address] 09/26/2024 10:30 AM EDT [facility] [address] [place] [address] [facility] [address] [address] Scheduled Procedures Name Priority Associated Diagnoses Date/Ti me COLONOSCOPY FLEXIBLE PROXIMAL DIAGNOSTIC Recall History of colon polyps Health Maintenance Due Date Last Done Comments Cologuard 2002 Fecal Occult Blood Test 2002 Sigmoidoscopy 2002 Adult Wellness Visit 07/21/2023 Diabetic Eye Exam 09/08/2024 09/09/2023, , 06/25/2021, Additional history exists HbA1c 09/10/2024 03/13/2024, /, 03/12/2023, Additional history exists COVID-19 Vaccine ( [...] this encounter Medical Devices Implanted Type Area Loan Closer Device Identifier Shelf Expiration Date Model / Serial / Lot Dbx 10cc [id number] - [id number] Implanted:Qty : 1 on 06/13/2007 [place] [facility] [place] - Human MUSCULOSKELETAL TRANSPLANT FND 070701 / / Chip Cancellous 30cc [id number] - [id number] Implanted:Qty : 1 on 06/13/2007 [place] [facility] [place] - Human MUSCULOSKELETAL TRANSPLANT FND 289916 / / Filter Cava Vena Fem [id number] - [id number] Implanted:Qty : 1 on 02/07/2007 [place] [facility] N/A: Abdomen COOK GROUP 11/01/2007 [id number] / / [id number] Nail Ti Dist Fem 12mm 450.828s - [id number] Implanted:Qty : 1 on 02/07/2007 [place] [facility] Right: Leg Upper SYNTHES 06/03/2014 450.828S / / [id number] Screw Lock Troch 5x38 458.938 - [id number] Implanted:Qty : 1 on 02/07/2007 [place] [facility] Right: Leg Upper SYNTHES 458.938 / / [place] Locking Ti 6mm 450.870 - [id number] Implanted:Qty : 1 on 02/07/2007 [place] [facility] Right: Leg Upper SYNTHES 450.870 / / [place] Locking Ti 6mm 450.864 - [id number] Implanted:Qty : 1 on 02/07/2007 at [facility] Right: Leg Upper SYNTHES 450.864 / / Screw Lock Troch 5x40 458.940 - [id number] Implanted:Qty : 1 on 02/07/2007 at [facility] Right: Leg Upper SYNTHES 458.940 / / Screw Cannul 6.5mm 32t 208.438 - [id number] Implanted:Qty : 1 on 02/07/2007 [place] [facility] Right: Leg Upper SYNTHES 208.438 / / Schanz Screws 294.784 - [id number] Implanted:Qty : 2 on 02/07/2007 [place] [facility] Right: Leg Upper SYNTHES 294.784 / / Schanz Screws 294.786 - [id number] Implanted:Qty : 1 on 02/07/2007 [place] [facility] Right: Leg Lower SYNTHES 294.786 / / Screw Cannul 4.5mm 214.540 - [id number] Implanted:Qty : 1 on 02/09/2007 [place] [facility] Right: Knee SYNTHES 214.540 / / Screw Cannul 4.5mm 214.546 - [id number] Implanted:Qty : 1 on 02/09/2007 [place] [facility] Right: Knee SYNTHES 214.546 / / M04.503.226.0 1 - [id number] Implanted:Qty : 12 on 02/11/2007 [place] [facility] Right: Face 04503.22 6.01 / / Description:Matrix Midface s elf drilling screw M04.503.373 - [id number] Implanted:Qty : 1 on 02/11/2007 [place] [facility] Right: Face 04503.37 3 / / Description:Matrix Midface O rbital Rim Plate (PINK) Implant On The Fly - [id number] Implanted:Qty : 1 on 02/11/2007 [place] [facility] POREX DEDAR : SURGICAL INC 07/01/2016 48747 / / [id number] Description:MEDPOR Surgical ImplantCAT#[id number] DIM [id number] mmMEDPOR TITANLOT#[id number] Screw Cannul 7.3mm 209.885 - [id number] Implanted:Qty : 1 on 02/21/2007 [place] [facility] Right: Lower Arm SYNTHES 209.885 / / Washer 13.0mm 219.99 - [id number] Implanted:Qty : 3 on 02/21/2007 at [place] [facility] Right: Lower Arm SYNTHES 219.99 / / Screw Cannul 7.3mm 209.875 - [id number] Implanted:Qty : 1 on 02/21/2007 at [facility] Right: Lower Arm SYNTHES 209.875 / / Screw Cannul 7.3mm 209.860 - [id number] Implanted:Qty : 1 on 02/21/2007 [place] [facility] Right: Lower Arm SYNTHES 209.860 / / Wire [place] 2mm 292.41 - [id number] Implanted:Qty : 3 on 02/21/2007 [place] [facility] Right: Lower Arm SYNTHES 292.41 / / Bone Implant Op-1 100-25 - [id number] Implanted:Qty : 1 on 01/26/2008 [place] [facility] Right: Leg Upper CHARBEL 11/08/2008 100-25 / / [id number] Bone Implant Op-1 100-25 - [id number] Implanted:Qty : 1 on 01/26/2008 [place] [facility] Right: Leg Upper CHARBEL 11/08/2008 100-25 / / [id number] Vitoss Bone Graft Substitute 10 Ml Implanted:Qty : 1 on 01/26/2008 [place] [facility] Right: Leg Upper 07/01/2009 8892-7855 / / [id number] Ventralex St Hernia Patch Medium Implanted:Qty : 1 on 01/30/2015 by Andria Zuniga MD at OR [facility] N/A: Abdomen 08/29/2015 [id number] / / [id number] Preshaped Mesh W/Keyhole 2x4" Implanted:Qty : 1 on 01/30/2015 by Andria Zuniga MD at OR [facility] Right: Groin 11/30/2018 [id number] / / [id number] documented as of this encounter Visit Diagnoses Diagnosis Pain Generalized pain documented in this encounter Advance Directives * [...] 3:47 PM 03/09/2007 6:50 PM Care Teams Vp Product Relationship Specialty Start Date End Date Tejinder Ordoñez III, MD [address] [facility] [place] [address] PCP - General Family Medicine 05/29/16 documented as of this encounter
--- NOTE | 2024-08-15 07:40 | History & Physical Bridge Note ---
Date of Service August 15, 2024 History & Physical Bridge Note I have examined the patient, reviewed the History & Physical and in the interval since the performance of the History & Physical I have noted the following changes of clinical significance: no changes noted
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
[2024-08-15] MEDS ORDERED: SUCCINYLCHOLINE CHLORIDE 20 MG/ML 10 ML VIAL IV ONE (07:41)
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
[2024-08-15] MEDS: ceFAZolin 2000MG 2,000 MG/15 ML SYR IV SCH ×2 (07:50→16:00)
[2024-08-15] MEDS ORDERED: ePHEDrine sulfate 50 MG/5 ML SYR ONE (07:57)
[2024-08-15] MEDS ORDERED: PHENYLEPHRINE 100MCG/ML 5ML SYR ONE (07:57)
[2024-08-15] MEDS ORDERED: KETAMINE HCL 10MG/ML SYR ONE (08:11)
[2024-08-15] MEDS: BUPIVACAINE/EPINEPHRINE 0.25% 1:200,000 30 ML VIAL ONE (08:12)
[2024-08-15] MEDS: ceFAZolin 330 MG/ML 1 GM VIAL ONE (08:22)
[2024-08-15] MEDS: FLOSEAL HEMOSTATIC MATRIX 10ML TOP ONE (08:58)
--- NOTE | 2024-08-15 09:12 | Operative Report ---
Post Operative Report Pre & Post Diagnosis Operation Date: 08/15/24 07:45 Pre-Op Diagnosis: #1 lumbar spondylosis with radiculopathy #2 lumbar disc herniation with radiculopathy Post-Op Diagnosis: Same I identified the patient and participated in the time-out.: Yes Procedure Operation Date: 08/15/24 07:45 Actual Procedures #1 lumbar decompression with bilateral facetectomies and foraminotomies with excision of extraforaminal disc herniation L3-L4. #2 posterior spinal fusion L3-L4. #3 placement posterior instrumentation L3-L4. #4 interbody fusion L3- L4. #5 placement Spira 13 x 26 mm at L3-L4 #6 placement locally harvested morselized autograft in the posterior lower gutters. #7 placement fuse collagen sponge, with Koros in the posterior lateral gutters and os design and interbody space. #8 application of versa wrap of the exposed dura. Surgeon Jules Randolph, DO Boiling House Hand Maral Gutierrez Estimated Blood Loss 100 Findings Consistent with Post-Op Diagnosis Specimens None Indications This is a 69-year-old male presents publish diagnosis of failed course of nonoperative care is here for surgical invention. Description of Procedure Patient was met with identified informed consent obtained. Patient was then taken to the operative suite underwent intubation placed in a prone position on the Curtis table atop the Jose Juan frame. All bony prominences well-padded eyes inspected to ensure no external pressure placed upon them. This point lumbar spine was prepped and draped in the normal sterile fashion. Sharp dissection with the assistance of Bovie cautery performed up to the exposing the lamina and transverse processes of L3-L4 bilaterally. From a caudal cephalad fashion complete laminectomy of L3 was performed including bilateral medial facetectomies and foraminotomies to address all neural compression. I did include complete facetectomy at L3-L4 on the left to expose an extraforaminal foraminal disc herniation that was removed in its entirety. Pedicle screws were then placed in L3-L4 bilaterally with assistance of fluoroscopy. By way of transforaminal approach on the left complete discectomy of L3-L4 was performed endplates corrected to subcortical and bone and a 13 x 26 mm spiral cage filled with os design bone graft tapped in position. The rods were then locked in final position bilaterally. The transverse processes of L3-L4 burred to subcortical bleeding bone and infuse collagen sponge, with Koros and local autograft placed in posterior gutters. Versa wrap placed over the exposed dura. 15 round JULISSA drain inserted. The incision was then closed with 1 Vicryl the fascia 2-0 Vicryl subcutaneously and 4 Monocryl for final skin closure. Steri- Strips sterile dressing placed. Patient waken to PACU in stable condition. Please note spinal cord monitoring visualized at the procedure no changes noted. Maral Gutierrez was present at the entire procedure and on the patient positioning complex portion of the surgery and final skin closure. I attest to the content of the Intraoperative Record and any orders documented therein. Any exceptions are noted below.
--- NOTE | 2024-08-15 10:22 | Anesthesiology Progress Note ---
Date of Service August 15, 2024 Anesthesia Post Procedure Vital Signs Vital Signs: Temp Pulse Resp BP Pulse Ox O2 Del Method O2 Flow Rate 08/15/24 10:20 81 16 118/68 96 Nasal Cannula 2 08/15/24 10:10 85 16 126/68 95 Nasal Cannula 2 08/15/24 10:00 97.7 F 93 H 15 120/67 98 Oxymask 4 08/15/24 09:50 83 15 120/67 98 Oxymask 4 08/15/24 09:40 89 18 131/61 98 Oxymask 4 08/15/24 09:30 91 H 16 106/73 97 Oxymask 8 08/15/24 09:23 96.8 F L 92 H 16 133/66 99 Oxymask 8 08/15/24 07:04 98.1 F 68 18 107/68 95 Room Air Pain Intensity Left Lower Back: Pain Intensity: 2 Transfer of Care Handoff Completed per policy Notes Mental Status: alert / awake / arousable and participated in evaluation Patient Amnestic to Procedure: Yes Nausea / Vomiting: adequately controlled Pain: adequately controlled Airway Patency, RR, SpO2: stable & adequate BP & HR: stable & adequate Hydration State: stable & adequate Anesthetic Complications: no major complications apparent and Pt Satisfied with anesthetic care
--- NOTE | 2024-08-15 10:36 | Fluoroscopy Report ---
FL lumbar spine 2-3V CLINICAL HISTORY: L3-L4 DECOMPRESSION AND FUSION COMPARISON STUDY: None FLUOROSCOPY TIME: 16 seconds FLUOROSCOPY IMAGES: 3 EXPOSURE DOSE: 16 mGy FINDINGS: Fluoroscopy was provided for L3-4 fusion. IMPRESSION: Intraoperative fluoroscopy. ACT 112: Negative or not required by law. Electronically signed by: Nick Bryson M.D. 08/15/2024 10:35 AM
[2024-08-15] MEDS ORDERED: SOD PHOSPHATE/SOD BIPHOSPHATE ENEMA 132 ML BTL PR PRN (11:29)
[2024-08-15] MEDS ORDERED: ONDANSETRON 4 MG OD TAB PO PRN (11:29)
[2024-08-15] MEDS ORDERED: DO NOT ADMINISTER PNEUMOCOCCAL VACCINE PRN (11:29)
[2024-08-15] MEDS ORDERED: LORazepam 2 MG/1 ML VIAL IV PRN (11:29)
[2024-08-15] MEDS ORDERED: hydrOXYzine HCl 25 MG TAB PO PRN (11:29)
[2024-08-15] MEDS ORDERED: NALOXONE HCL 0.4 MG/1 ML VIAL/CARP IV PRN (11:29)
[2024-08-15] MEDS ORDERED: MAGNESIUM HYDROXIDE SUSP 30 ML UDC PO PRN (11:29)
[2024-08-15] MEDS ORDERED: PROMETHAZINE 12.5 MG/50.5 ML BAG IV PRN (11:29)
[2024-08-15] MEDS ORDERED: METOCLOPRAMIDE HCL INJ 5 MG/ML 2 ML VIAL IV PRN (11:29)
[2024-08-15] MEDS ORDERED: LORazepam 0.5 MG TAB PO PRN (11:29)
[2024-08-15] MEDS ORDERED: diphenhydrAMINE Capsule 25 MG CAP PO PRN (11:29)
[2024-08-15] MEDS ORDERED: DO NOT ADMINISTER FLU VACCINE PRN (11:29)
[2024-08-15] MEDS ORDERED: bisacodyL 10 MG SUPP PR PRN (11:29)
[2024-08-15] MEDS ORDERED: HYDROmorphone INJ 0.5 MG/0.5 ML SYR IV PRN (11:29)
[2024-08-15] MEDS ORDERED: PHARMACY GLYCEMIC MGMT CONSULT PRN (11:29)
[2024-08-15] MEDS ORDERED: ACETAMINOPHEN 500 MG TAB PO PRN (11:29)
[2024-08-15] MEDS ORDERED: ACETAMINOPHEN 1,000 MG/100 ML VIAL IV PRN (11:29)
[2024-08-15] MEDS ORDERED: FAMOTIDINE 20 MG TAB PO PRN (11:29)
[2024-08-15] MEDS: oxyCODONE HCL IR 5 MG TAB (IMMEDIATE RELEASE) PO PRN (11:47)
[2024-08-15] MEDS ORDERED: GLUCOSE 10 TAB/TUBE PO PRN (12:30)
[2024-08-15] MEDS ORDERED: GLUCAGON FOR INJ 1 MG VIAL SQ PRN (12:30)
[2024-08-15] MEDS ORDERED: CARBOHYDRATES FOR HYPOGLYCEMIA PO PRN (12:30)
[2024-08-15] MEDS ORDERED: GLUCOSE 40% GEL 15 GM TUBE PO PRN (12:30)
[2024-08-15] MEDS ORDERED: DEXTROSE 50% 50 ML SYRINGE IV PRN (12:30)
--- NOTE | 2024-08-15 12:36 | Pharmacy Report ---
Pharmacy Glycemic Short Note 2 - Date of Service August 15, 2024 - Glycemic Short BSG Results (Last 24 hours): 08/15/24 08/15/24 08/15/24 06:50 09:27 11:36 POC Glucose 134 H 149 H 174 H OUTPATIENT ANTIDIABETIC REGIMEN: * Jardiance 25mg PO daily * Ozempic 0.5mg SQ Weekly * Metformin 1g PO BID * A1c 5.8% 07/20/24 ASSESSMENT: * 69 year old M, s/p spinal surgery, received 8mg IV Dexamethasone preop, ordered ongoing the next 3 days, 6mg IV Daily. * Blood sugars trending up d/t steroids, will give basal and tight NovoLog coverage and titrate to goal blood sugar. PLAN FOR INPATIENT GLYCEMIC CONTROL: * Hold outpatient diabetes medications * Basal insulin * Lantus 25 units SQ x 1 now then, 10 units SQ HS for BSG 200mg/dl or greater, then further dosing in AM * Bolus insulin * NovoLog per scale ACHS or Q6hrs while NPO * Goal Range: Low 110 mg/dL - High 140 mg/dL * Correction Factor: 20 mg/dL/unit * Nutritional / Prandial insulin per carb ratio of 1 unit per 6 grams CHO consumed
[2024-08-15] MEDS: INSULIN ASPART PER UNIT CHARGE SC SCH (12:51)
[2024-08-15] MEDS: LANTUS PER UNIT CHARGE SC ONE ×2 (12:53→20:53)
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
[2024-08-15] MEDS: traMADol HCL 50 MG TABLET PO PRN (13:32)
[2024-08-15] MEDS ORDERED: lisinopril 10 MG TAB PO SCH (21:00)
[2024-08-15] MEDS: PREGABALIN 150 MG CAP PO SCH (21:02)
[2024-08-15] MEDS: ALUMINUM/MAGNESIUM SUSP 30 ML UDC PO PRN (21:02)
[2024-08-15] MEDS: DOCUSATE SODIUM/SENNA 50/8.6MG TAB PO SCH (21:02)
[2024-08-15] MEDS: ATORVASTATIN 40 MG TAB PO SCH (21:02)
[2024-08-15] MEDS: HYDROmorphone INJ 1 MG/ML SYRINGE IV PRN (21:14)
[2024-08-16] MEDS: POLYETHYLENE (MIRALAX) 17 GM PACK PO SCH (06:32)
[2024-08-16 07:20] LABS: Basophils # (auto) 0.03 K/uL (0.00-0.20); Basophils % (auto) 0.3 %; Eosinophils % (auto) 0.9 %; Hematocrit (blood only) 37.4 % (42.0-52.0); Hemoglobin 13.4 g/dl (14.0-18.0); Immature Granulocytes # (auto) 0.07 K/uL (0.01-0.20); Immature Granulocytes % (auto) 0.6 %; Lymphocytes # (auto) 1.21 K/uL (1.20-3.40); Lymphocytes % (auto) 10.7 %; Mean Corpuscular Hemoglobin 31.9 pg (25.0-34.0); Mean Corpuscular Hgb Conc 35.8 g/dL (32.0-36.0); Mean Platelet Volume 9.8 fL (9.4-12.4); Monocytes # (auto) 0.96 K/uL (0.11-0.59); Monocytes % (auto) 8.5 %; Neutrophils # (auto) 8.89 K/uL (1.40-6.50); Platelet Count 192 K/uL (130-400); RDW Coefficient of Variation 13.3 % (11.5-14.5); RDW Standard Deviation 43.5 fL (36.4-46.3); White Blood Count 11.26 K/ul (4.8-10.8)
[2024-08-16 08:04] LABS: Calcium 8.4 mg/dl (8.6-10.3); Potassium 4.3 mmol/L (3.5-5.1)
[2024-08-16 08:10] LABS: BUN Creatinine Ratio 21.3 (10-20); Creatinine Clr Calc Pharmacy 95.2 ml/min
[2024-08-16] MEDS: lisinopril 10 MG TAB PO SCH (08:38)
[2024-08-16] MEDS: ADVANCED PROBIOTIC 625 MG CAPSULE PO SCH (08:39)
[2024-08-16] MEDS: ASPIRIN 81 MG ECTAB PO SCH (08:39)
[2024-08-16] MEDS: dexAMETHasone 6 MG in SYRINGE 0 ML IV SCH (08:39)
[2024-08-16] MEDS: SERTRALINE HCL 50 MG TABLET PO SCH (08:40)
[2024-08-16] MEDS: allopurinoL 300 MG TAB PO SCH (08:42)
[2024-08-16] MEDS: FERROUS SULFATE 325 MG TAB PO SCH (08:42)
[2024-08-16] MEDS ORDERED: NON-FORMULARY MEDICATION (Ferrous Sulfate [Iron] 325 mg (65 mg iron) Tablet) PO SCH (09:00)
[2024-08-16] MEDS ORDERED: NON-FORMULARY MEDICATION (Coenzyme Q10 [Co Q-10] 200 mg Capsule) PO SCH (09:00)
--- NOTE | 2024-08-16 11:31 | Orthopedic Progress Note ---
Date of Service August 16, 2024 Assessment & Plan (1) Multilevel lumbosacral spondylosis with radiculopathy: Plan: At this time initiate physical therapy monitor his JULISSA output hopefully discharge home in the next few days. Admission and Anticipated Discharge Date Admission Date: August 15, 2024 Subjective Back pain is controlled leg symptoms improved Physical Exam Physical Exam: Patient is currently in bed. He is upright. He is comfortable. Neurologically intact. Results & Data Vital Signs (Past 12 Hours) Vital Signs Temp Pulse Resp BP Pulse Ox O2 Del Method 08/16/24 07:43 Room Air 08/16/24 07:41 36.4 C L 64 18 100/61 97 Room Air 08/16/24 03:04 36.5 C 79 16 124/67 93 Room Air
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
--- NOTE | 2024-08-16 12:43 | Pharmacy Report ---
Pharmacy Glycemic Short Note 2 - Date of Service August 16, 2024 - Glycemic Short BSG Results (Last 24 hours): 08/15/24 08/15/24 08/16/24 16:33 20:31 06:41 Glucose 137 H POC Glucose 288 H 182 H 08/16/24 08/16/24 07:30 11:36 Glucose POC Glucose 141 H 159 H OUTPATIENT ANTIDIABETIC REGIMEN: * Jardiance 25mg PO daily * Ozempic 0.5mg SQ Weekly * Metformin 1g PO BID * A1c 5.8% 07/20/24 ASSESSMENT: 08/16 * Patient received a total of 56 units of insulin yesterday (25 units were basal and 31 units were bolus). * Fasting BSG was 141mg/dL this morning. Will continue Novolog parameters as ordered and will add a Lantus scale (0 or 10 units depending on BSG) at HS. * Patient continues on dexamethasone 6mg iv daily x 3 days. 08/15: * 69 year old M, s/p spinal surgery, received 8mg IV Dexamethasone preop, ordered ongoing the next 3 days, 6mg IV Daily. * Blood sugars trending up d/t steroids, will give basal and tight NovoLog coverage and titrate to goal blood sugar. PLAN FOR INPATIENT GLYCEMIC CONTROL: * Hold outpatient diabetes medications * Basal insulin * Lantus 10 units SQ HS for BSG 200mg/dl or greater * Bolus insulin * NovoLog per scale ACHS or Q6hrs while NPO * Goal Range: Low 110 mg/dL - High 140 mg/dL * Correction Factor: 20 mg/dL/unit * Nutritional / Prandial insulin per carb ratio of 1 unit per 6 grams CHO consumed
[2024-08-16] MEDS: valACYclovir HCL 500 MG TABLET PO ONE (15:45)
[2024-08-16] MEDS: valACYclovir HCL 500 MG TABLET PO SCH (20:29)
[2024-08-16] MEDS: LANTUS PER UNIT CHARGE SC ONE (21:10)
[2024-08-17 06:27] LABS: Hematocrit (blood only) 39.3 % (42.0-52.0); Hemoglobin 13.8 g/dl (14.0-18.0); Mean Corpuscular Hemoglobin 31.5 pg (25.0-34.0); Mean Corpuscular Hgb Conc 35.1 g/dL (32.0-36.0); Mean Corpuscular Volume 89.7 fL (80.0-100.0); Platelet Count 196 K/uL (130-400); RDW Coefficient of Variation 13.5 % (11.5-14.5); RDW Standard Deviation 44.1 fL (36.4-46.3); Red Blood Count 4.38 M/uL (4.70-6.10); White Blood Count 12.38 K/ul (4.8-10.8)
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
--- NOTE | 2024-08-17 08:30 | Orthopedic Progress Note ---
Date of Service August 17, 2024 Assessment & Plan (1) Multilevel lumbosacral spondylosis with radiculopathy: Plan: Patient stable postoperative MR 2. Will continue with PT OT continue pain control measures. He does need assistance getting up and moving as he has an above-knee amputation on the right-hand side and uses his left leg which is still somewhat weak for ambulation. Will see how he does with physical therapy. He will continue with GI DVT prophylaxis as well as pain control measures. Will see how he does over the next couple days and hopefully get him home. Admission and Anticipated Discharge Date Admission Date: August 15, 2024 Subjective Patient was seen bedside in room 308. He is doing well today. He did have some difficulty sleeping last night. An episode yesterday where he was unable to support himself in the bathroom and gently went to the floor. Did not have any increased pain afterwards. He is not having any nausea. He has a little bit more in the way of discomfort in the left leg. He denies any other numbness, tingling, or paresthesias. Physical Exam Physical Exam: On exam he is alert and oriented. He answers questions appropriately. His visual stallings are grossly intact. His left lower extremity motor exam reveals no focal atrophy all muscle groups are firing although there are still some persistent weakness in the left quadricep. Sensation is intact to light touch. Dressing is clean dry and intact. His JULISSA drains in place has had 20 cc out overnight shift and 70 on evening shift. Results & Data Vital Signs (Past 12 Hours) Vital Signs Temp Pulse Resp BP Pulse Ox O2 Del Method 08/17/24 08:00 36.5 C 76 22 115/63 94 Room Air
[2024-08-18 07:30] LABS: Hemoglobin 13.6 g/dl (14.0-18.0); Mean Corpuscular Hemoglobin 32.1 pg (25.0-34.0); Mean Corpuscular Hgb Conc 35.8 g/dL (32.0-36.0); Mean Corpuscular Volume 89.6 fL (80.0-100.0); Mean Platelet Volume 9.7 fL (9.4-12.4); Platelet Count 211 K/uL (130-400); RDW Coefficient of Variation 13.3 % (11.5-14.5); RDW Standard Deviation 43.5 fL (36.4-46.3); Red Blood Count 4.24 M/uL (4.70-6.10); White Blood Count 10.07 K/ul (4.8-10.8)
[2024-08-18 07:35] VITALS: BP 146/63; PULSE 75; RESP 18; TEMP 97.9; O2SAT 97
[2024-08-18 07:46] LABS: BUN Creatinine Ratio 36.2 (10-20); Calcium 8.5 mg/dl (8.6-10.3); Creatinine Clr Calc Pharmacy 110.4 ml/min; Magnesium 1.7 mg/dl (1.7-2.4); Potassium 4.2 mmol/L (3.5-5.1)
--- NOTE | 2024-08-18 09:41 | Pharmacy Report ---
Pharmacy Glycemic Short Note 2 - Date of Service August 18, 2024 - Glycemic Short BSG Results (Last 24 hours): 08/17/24 08/17/24 08/17/24 11:31 16:32 20:11 Glucose POC Glucose 156 H 209 H 180 H 08/18/24 08/18/24 06:59 07:32 Glucose 120 H POC Glucose 109 H OUTPATIENT ANTIDIABETIC REGIMEN: * Jardiance 25mg PO daily * Ozempic 0.5mg SQ Weekly * Metformin 1g PO BID * A1c 5.8% 07/20/24 ASSESSMENT: 08/18: * Patient received a total of 31 units of insulin yesterday, all were bolus. Today is the last dose of scheduled iv dexamethasone, so it is likely that insulin requirements will decline starting tomorrow. * Fasting BSG was 109mg/dL this morning. CF loosened some starting with breakfast today. No basal insulin needed at this time 08/16: * Patient received a total of 56 units of insulin yesterday (25 units were basal and 31 units were bolus). * Fasting BSG was 141mg/dL this morning. Will continue Novolog parameters as ordered and will add a Lantus scale (0 or 10 units depending on BSG) at HS. * Patient continues on dexamethasone 6mg iv daily x 3 days. 08/15: * 69 year old M, s/p spinal surgery, received 8mg IV Dexamethasone preop, ordered ongoing the next 3 days, 6mg IV Daily. * Blood sugars trending up d/t steroids, will give basal and tight NovoLog coverage and titrate to goal blood sugar. PLAN FOR INPATIENT GLYCEMIC CONTROL: * Hold outpatient diabetes medications * Basal insulin * none * Bolus insulin * NovoLog per scale ACHS or Q6hrs while NPO * Goal Range: Low 110 mg/dL - High 140 mg/dL * Correction Factor: 20 mg/dL/unit * Nutritional / Prandial insulin per carb ratio of 1 unit per 8 grams CHO consumed
--- NOTE | 2024-08-18 09:47 | Discharge Summary ---
Date of Service August 18, 2024 Admission HPI Per Admitting Provider This is a 69-year-old male who presents with chronic subsequent back and leg pain after failing course of nonoperative care is here for surgical invention. Principal Diagnosis Lumbar spondylosis with radiculopathy Discharge Data Allergies Allergy/AdvReac Type Severity Reaction Status Date / Time bupropion Allergy Severe Hives Verified 08/15/24 07:00 bee venom protein (honey bee) Allergy Intermediate Hives, Verified 08/15/24 07:00 lips swell Consultations 08/15/24 11:29 Consult Hospitalist Routine Procedures Performed Operation Date: 08/15/24 07:45 Actual Procedures p L3-L4 Decompression and Fusion, Spinal Cord Monitoring(Not Applicable) - Jules Randolph DO Ordered Studies 08/15/24 07:45 FL lumbar spine 2-3V Routine Hospital Course (1) Multilevel lumbosacral spondylosis with radiculopathy: Patient with lumbar decompression fusion tolerated this well was taken to orthopedic for postoperative. Possibly progressed appropriately. Pain controlled. Tolerating physical therapy. JULISSA drain decreasing. Excellent strength testing. Subsequently discharged home. Discharge orders instructions from the chart for further review. Total Time Total Time Spent Total Time Spent (In Minutes): 20 minutes Discharge Plan Discharge Items Patient Disposition: Home - Home Health Services Reason For Visit: Lumbar Spine Pain, Herniated Disc Discharge Diagnosis: Lumbar spondylosis with radiculopathy Activity: As commented below Non-emergency contact: Primary Care Provider Call non-emergency contact if: you have any medication questions Follow-up/Referrals: Tejinder Ordoñez MD [Primary Care Provider] - Diet: Regular Addtl Attending Provider Instructions: ACTIVITY RECOMMENDATIONS: SELF CARE INSTRUCTIONS AFTER THORACIC/LUMBAR FUSIONS 1. You may walk to your tolerance. It is good exercise for your legs and back. Expect some back and intermittent leg aches and pains. 2. You may perform "counter-top" level activities (make a sandwich, laurie with a project, etc.). 3. No bending or lifting of more than 10 pounds or back twisting of any nature (roll like a log when turning in bed). 4. You may ride in a car for 20-30 minutes at a time. No driving until after your first visit with your doctor. 5. Frequent changes of position and restricting sitting to 30 minutes at a time will help limit the amount of back spasms and stiffness you may experience. 6. You may discontinue the use of ambulatory aids (cane, crutches, etc.) once your strength and confidence allow. 7. You may clinical mental health counselor the shower and let water strike your incision when you arrive home at least once daily. Do not take a tub bath, sit in a hot tub or go into a swimming pool until after your first recheck in the office. 8. You may resume previous diet. SPECIAL CARE INSTRUCTIONS: VERY IMPORTANT TO READ AND REVIEW A. Your surgical incision has been closed with a cosmetic suture under the skin that will dissolve in about 6 weeks. In 14 days, you can use a pair of clean scissors and cut the suture that is left outside of the skin at the ends of your incision. 1. The small skin tapes can be removed 7 days after surgery if they have not fallen off by that point. 2. You may keep the wound open to air as much as possible to promote healing after post-op day number 5 unless told otherwise by your doctor. 3. If you think the wound looks like it is becoming infected (redness or worsening drainage) and/or you are experiencing fever, chill or worsening back pain and muscle spasms, contact the office so that we may evaluate you as soon as possible. B. Complications are uncommon, but please contact us if you have any signs or symptoms of: 1. wound infection (fever higher than 102.5 degrees F, redness, separation of wound, drainage, or increasing pain from the incision) 2. blood clots in legs (pain, swelling, redness and warmth in legs) 3. urinary tract infection (fever higher than 102.5 degrees F, burning upon urination or increased frequency of urination) 4. nerve problems (inability to walk on your toes or heels, numbness, loss of bowel or bladder control) 5. any other symptoms that concern you C. Please call the office at if you have any concerns or questions about your operation or recovery. D. No smoking! Smoking drastically decreases the chance of a solid fusion. E. Do not take any anti-inflammatory medications (Indocin, Advil, Motrin, Aspirin, Naprosyn, etc.) as these may inhibit the chance of a solid fusion. Tylenol is okay to take for pain. MANAGING PAIN AFTER SPINAL SURGERY 1. Narcotic medication is intended for short-term use and will be provided for surgical pain. Surgical pain usually lasts for a period of 4-6 weeks. Narcotic medication includes Percocet, Vicodin, Darvocet, Tylenol #3 or Lortab. 2. Longer-term pain is more appropriately treated with non-narcotic medication such as Tylenol ES. 3. Muscle spasm is not appropriately treated with narcotics. Muscle relaxers such as Soma, Flexeril or Skelaxin can be used along with Tylenol ES. 4. Remember that we all live with some "aches and pains". This is not unusual or uncommon after an injury or as we get older. a. Back pain is expected and may include muscle spasms for 4 to 6 weeks after surgery. The pain should gradually improve. If the pain worsens for no apparent reason, please contact the office. b. Intermittent leg pain may also be experienced and should not be concerned about unless it worsens for no apparent reason. If so, please contact the office. 5. We will provide appropriate medication within the normal guidelines of their prescribed use. We will also be very cautious and aware of potential abuse and extended duration of patients' medication needs. a. Pain medications are for your comfort and to assist with sleep and rest so that the tissue can heal. They are not provided in order to return to normal activity and should not be used through the day. To do so or worsening pain at night can result from ongoing tissue damage and development of tolerance to the prescribed medicine. 6. Please allow 2-3 days to process refills. Prescriptions will not be mailed but must be picked up at the office. FOLLOW UP VISIT: Keep your scheduled follow-up appointment. Any questions, please call the office at . Pending Studies at Discharge: No Stand-Alone Forms: My [employer], Smoking Cessation Medications and DC Order Prescriptions: New tramadol 50 mg tablet 50 mg PO Q6H PRN (Reason: pain, moderate) Qty: 30 0RF oxycodone 5 mg tablet 5 mg PO Q6H PRN (Reason: pain) Qty: 30 0RF Continued Jardiance 25 mg tablet 25 mg PO QAM metformin 500 mg tablet 1,000 mg PO BID lisinopril 10 mg tablet 10 mg PO BID valacyclovir 1 gram tablet 2,000 mg PO Q12 PRN (Reason: Cold Sores) Rx Instructions: filled 01/07/2022 , 4 days aspirin 81 mg Tablet,Delayed Release (Dr/Ec) 81 mg PO QAM tramadol 50 mg tablet 100 mg PO Q6H PRN (Reason: Pain) ferrous sulfate [iron] 325 mg (65 mg iron) Tablet 325 mg PO QAM allopurinol 300 mg tablet 300 mg PO QAM sertraline 50 mg tablet 125 mg PO QAM Rx Instructions: T 2 & 1/2 tabs daily Ozempic 0.25 mg or 0.5 mg (2 mg/3 mL) pen injector 0.5 mg SUBCUT Q7D Patient Comments: wednesdays atorvastatin 40 mg tablet 40 mg PO HS coenzyme Q10 [Co Q-10] 200 mg Capsule 200 mg PO QAM pregabalin 150 mg capsule 150 mg PO BID Men 50 Plus Multivitamin [id number] mcg Tablet 1 tab PO QAM Probiotic 10 billion cell Capsule 10 cell PO QAM Discharge Orders: Discharge Order (Routine); Ordered 08/18/24 Ordered By: Jules Melendez/Other Patient Handouts: High Blood Sugar (Hyperglycemia), Hypoglycemia (Low Blood Sugar), Managing Type 2 Diabetes Admission Data Admit Date/Time: 08/15/24 09:17 Attending Provider: Jules Randolph Admit Provider: Jules Randolph Primary Care Provider: Tejinder Ordoñez Other Providers: Brian Card
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
== END 2024-08-18 14:41 | disposition home health service (06) | DRG 402 ==
LOC: ASU 06:38 → 3E 09:17

== ENCOUNTER 2024-08-25 14:07 | Inpatient (IN) ==
[2024-08-25 15:25] LABS: Eosinophils # (auto) 0.59 K/uL (0.00-0.50); Eosinophils % (auto) 5.7 %; Hematocrit (blood only) 38.2 % (42.0-52.0); Hemoglobin 13.5 g/dl (14.0-18.0); Lymphocytes # (auto) 1.54 K/uL (1.20-3.40); Lymphocytes % (auto) 14.9 %; Mean Corpuscular Hemoglobin 31.7 pg (25.0-34.0); Mean Corpuscular Hgb Conc 35.3 g/dL (32.0-36.0); Mean Corpuscular Volume 89.7 fL (80.0-100.0); Mean Platelet Volume 9.4 fL (9.4-12.4); Monocytes # (auto) 0.87 K/uL (0.11-0.59); Monocytes % (auto) 8.4 %; Neutrophils # (auto) 7.16 K/uL (1.40-6.50); Platelet Count 300 K/uL (130-400); RDW Coefficient of Variation 13.1 % (11.5-14.5); RDW Standard Deviation 42.9 fL (36.4-46.3); Red Blood Count 4.26 M/uL (4.70-6.10); White Blood Count 10.36 K/ul (4.8-10.8)
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
[2024-08-25 15:43] LABS: Alanine Aminotransferase 14 U/L (7-52); Albumin Globulin Ratio 1.3 (0.9-2); Albumin Level 3.6 gm/dl (3.4-5.0); Alkaline Phosphatase 82 U/L (34-104); Anion Gap 6 (3-11); Aspartate Aminotransferase 18 U/L (13-39); BUN Creatinine Ratio 31.6 (10-20); Bilirubin,Total 0.4 mg/dl (0.2-1.0); Blood Urea Nitrogen 25 mg/dl (6-23); Calcium 8.6 mg/dl (8.6-10.3); Carbon Dioxide 26 mmol/L (21-32); Chloride 104 mmol/L (98-107); Globulin 2.7 gm/dl (2.5-4.0); Glucose 117 mg/dl (70-99(Fasting)); Potassium 4.9 mmol/L (3.5-5.1); Sodium 136 mmol/L (136-145); Total Protein 6.3 gm/dl (6.0-8.3)
[2024-08-25] MEDS: MoRPHine SULFATE 2 MG/ML CARP IV STA ×2 (15:51→17:09)
[2024-08-25] MEDS ORDERED: POLYETHYLENE (MIRALAX) 17 GM PACK PO PRN (18:22)
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
[2024-08-25] MEDS: oxyCODONE HCL IR 5 MG TAB (IMMEDIATE RELEASE) PO PRN (19:41)
[2024-08-25] MEDS: ATORVASTATIN 40 MG TAB PO SCH (21:30)
[2024-08-25] MEDS: lisinopril 10 MG TAB PO SCH (21:30)
[2024-08-25] MEDS: PREGABALIN 150 MG CAP PO SCH (22:19)
[2024-08-25] MEDS: traMADol HCL 50 MG TABLET PO PRN (22:20)
[2024-08-26] MEDS: MoRPHine SULFATE 2 MG/ML CARP IV PRN (02:09)
[2024-08-26] MEDS: ASPIRIN 81 MG ECTAB PO SCH (09:24)
[2024-08-26] MEDS: FERROUS SULFATE 325 MG TAB PO SCH (09:25)
[2024-08-26] MEDS: SERTRALINE HCL 50 MG TABLET PO SCH (09:25)
[2024-08-26] MEDS: allopurinoL 300 MG TAB PO SCH (09:25)
--- NOTE | 2024-08-26 15:25 | Hospitalist Progress Note ---
Date of Service August 26, 2024 Assessment & Plan (1) HTN (hypertension): (2) Nocturnal hypoxemia: (3) History of hypertension: (4) Diabetes mellitus, type 2: (5) Severe obstructive sleep apnea: (6) Hx of hyperlipidemia: (7) Hx of gout: (8) History of depression: (9) Opioid abuse, in remission: (10) Herpes simplex virus (HSV) infection: Plan The patient is a 69-year-old male who recently underwent a lumbar fusion with Dr. Randolph on 08/15/24. Presents to the ED on with complaints of worsening lower back pain and ambulatory dysfunction over the past few days. Lower back pain Ambulatory dysfunction S/p L3-L4 decompression/fusion08/15: stop tramadol, continue oxycodone q4hr prn -stop IV pain medication PT/OT, case management referral, consider increasing oxy dose Hx depression: Continue Zoloft Hx HTN/HLD: Continue home lisinopril/statin Hx DM2: A1c in 07/25 was 5.8, hold oral diabetic agents SSI/4 times daily BGM Hx ANTHONY: Continue CPAP at bedtime I spent a total of 40 minutes in direct patient care, including [id number] time with the patient and/or family, reviewing medical records, ordering and reviewing diagnostic tests, and coordinating care with other healthcare providers. This time includes: history taking, physical examination, medical decision making, counseling, ECG interpretation, imaging interpretation, lab interpretation, orders, and education, excluding time spent in the performance of separately billed services. Admission and Anticipated Discharge Date Admission Date: August 25, 2024 Subjective Patient seen and examined at bedside. Patient doing well today. States he really needs rehab, has not been able to function at home for the past week. Pain controlled on current regiment. Review of Systems Review of Systems: CONSTITUTIONAL: Patient denies fevers, chills, sweats and weight changes. EYES: Patient denies any visual symptoms. EARS, NOSE, AND THROAT: No difficulties with hearing. No symptoms of rhinitis or sore throat. CARDIOVASCULAR: Patient denies chest pains, palpitations, orthopnea and paroxysmal nocturnal dyspnea. RESPIRATORY: No dyspnea on exertion, no wheezing or cough. GI: No nausea, vomiting, diarrhea, constipation, abdominal pain, hematochezia or melena. : No urinary hesitancy or dribbling. No nocturia or urinary frequency. No abnormal urethral discharge. MUSCULOSKELETAL: back pain NEUROLOGIC: No chronic headaches, no seizures. Patient denies numbness, tingling or weakness. PSYCHIATRIC: Patient denies problems with mood disturbance. No problems with anxiety. ENDOCRINE: No excessive urination or excessive thirst. DERMATOLOGIC: Patient denies any rashes or skin changes. Physical Exam Physical Exam: Gen: A&O 3 NAD HEENT: NCAT, EOMI, not icteric. External ears normal. No rhinorrhea. Moist mucous membranes. Neck: Supple, full range of motion, no observable masses, No meningeal sign. Lungs: No Respiratory distress. CV: RRR, no edema. Abdomen: Soft, nondistended, No rebound tenderness. MSK: No joint swelling, no redness. Skin: No rashes, petechiae, lesions. Normal color per patient. Neuro: Normal Gait, Grossly intact. Psych: Appropriate for situation. Results & Data Results & Data Vital Signs (Past 12 Hours) Vital Signs Temp Pulse Resp BP Pulse Ox O2 Del Method 08/26/24 09:40 Room Air 08/26/24 09:29 48 L 18 121/53 L 97 Room Air 08/26/24 07:41 36.3 C L 70 24 100/62 95 CPAP Medications Administered Allopurinol (Allopurinol 300 Mg Tab) [facility] [place] Stop: 09/25/24 08:59 Last Admin: 08/26/24 09:25 Dose: 300 mg Documented By: HRB Aspirin (Aspirin 81 Mg Ectab) 81 mg [facility] [place] Stop: 09/25/24 08:59 Last Admin: 08/26/24 09:24 Dose: 81 mg Documented By: HRB Atorvastatin Calcium (Atorvastatin 40 Mg Tab) 40 mg PO [facility] Stop: 09/24/24 20:59 Last Admin: 08/25/24 21:30 Dose: 40 mg Documented By: VANESSA Ferrous Sulfate (Ferrous Sulfate 325 Mg Tab) 325 mg PO QAM [facility] Stop: 09/25/24 08:59 Last Admin: 08/26/24 09:25 Dose: 325 mg Documented By: HRB Lisinopril (Lisinopril 10 Mg Tab) 10 mg PO BID [facility] Stop: 09/24/24 20:59 Last Admin: 08/26/24 09:30 Dose: 10 mg Documented By: Admin: 08/25/24 21:30 Dose: 10 mg Documented By: VANESSA Oxycodone HCl (Oxycodone Hcl Ir 5 Mg Tab (Immediate Release)) 5 mg PO Q4H PRN PRN Reason: MOD/SEV PAIN (4-10) Stop: 09/08/24 17:39 Last Admin: 08/26/24 15:19 Dose: 5 mg Documented By: Admin: 08/26/24 09:25 Dose: 5 mg Documented By: Admin: 08/25/24 19:41 Dose: 5 mg Documented By: VANESSA Pregabalin (Pregabalin 150 Mg Cap) 150 mg PO BID [facility] Stop: 09/24/24 20:59 Last Admin: 08/26/24 09:25 Dose: 150 mg Documented By: Admin: 08/25/24 22:19 Dose: 150 mg Documented By: VANESSA Sertraline HCl (Sertraline Hcl 50 Mg Tablet) 125 mg PO QAM [facility] Stop: 09/25/24 08:59 Last Admin: 08/26/24 09:25 Dose: 125 mg Documented By: HRB (1) HTN (hypertension) Hypertension type: unspecified Qualified Code(s): I10 - Essential (primary) hypertension
[2024-08-27] MEDS: ACETAMINOPHEN 325 MG TAB PO PRN (09:03)
--- NOTE | 2024-08-27 13:11 | Electrocardiogram Report ---
Test Reason : Blood Pressure : */* mmHG Vent. Rate : 91 BPM Atrial Rate : 91 BPM P-R Int : 156 ms QRS Dur : 136 ms QT Int : 356 ms P-R-T Axes : 65 44 33 degrees QTcB Int : 437 ms Sinus rhythm with frequent Premature ventricular complexes in a pattern of bigeminy Right bundle branch block Abnormal ECG When compared with ECG of 18-May-2024 14:01, Right bundle branch block has replaced Incomplete right bundle branch block Confirmed by Henrik Reeder ([id number]) on 08/27/2024 1:10:44 PM Referred By: REFERRED SELF Confirmed By: Henrik Reeder
--- NOTE | 2024-08-27 16:47 | Hospitalist Progress Note ---
Date of Service August 27, 2024 Assessment & Plan (1) HTN (hypertension): (2) Nocturnal hypoxemia: (3) History of hypertension: (4) Diabetes mellitus, type 2: (5) Severe obstructive sleep apnea: (6) Hx of hyperlipidemia: (7) Hx of gout: (8) History of depression: (9) Opioid abuse, in remission: (10) Herpes simplex virus (HSV) infection: Plan The patient is a 69-year-old male who recently underwent a lumbar fusion with Dr. Randolph on 08/15/24. Presents to the ED on with complaints of worsening lower back pain and ambulatory dysfunction over the past few days. Lower back pain Ambulatory dysfunction S/p L3-L4 decompression/fusion08/15: continue oxycodone q4hr prn PT/OT, case management referral Hx depression: Continue Zoloft Hx HTN/HLD: Continue home lisinopril/statin Hx DM2: A1c in 07/25 was 5.8, hold oral diabetic agents SSI/4 times daily BGM Hx ANTHONY: Continue CPAP at bedtime I spent a total of 35 minutes in direct patient care, including [id number] time with the patient and/or family, reviewing medical records, ordering and reviewing diagnostic tests, and coordinating care with other healthcare provid ers. This time includes: history taking, physical examination, medical decision making, counseling, ECG interpretation, imaging interpretation, lab interpretation, orders, and education, excluding time spent in the performance of separately billed services. Admission and Anticipated Discharge Date Admission Date: August 25, 2024 Subjective Patient seen and examined at bedside. Doing well today, pain improving. Review of Systems Review of Systems: CONSTITUTIONAL: Patient denies fevers, chills, sweats and weight changes. EYES: Patient denies any visual symptoms. EARS, NOSE, AND THROAT: No difficulties with hearing. No symptoms of rhinitis or sore throat. CARDIOVASCULAR: Patient denies chest pains, palpitations, orthopnea and paroxysmal nocturnal dyspnea. RESPIRATORY: No dyspnea on exertion, no wheezing or cough. GI: No nausea, vomiting, diarrhea, constipation, abdominal pain, hematochezia or melena. : No urinary hesitancy or dribbling. No nocturia or urinary frequency. No abnormal urethral discharge. MUSCULOSKELETAL: back pain NEUROLOGIC: No chronic headaches, no seizures. Patient denies numbness, tingling or weakness. PSYCHIATRIC: Patient denies problems with mood disturbance. No problems with anxiety. ENDOCRINE: No excessive urination or excessive thirst. DERMATOLOGIC: Patient denies any rashes or skin changes. Physical Exam Physical Exam: Gen: A&O 3 NAD HEENT: NCAT, EOMI, not icteric. External ears normal. No rhinorrhea. Moist mucous membranes. Neck: Supple, full range of motion, no observable masses, No meningeal sign. Lungs: No Respiratory distress. CV: RRR, no edema. Abdomen: Soft, nondistended, No rebound tenderness. MSK: No joint swelling, no redness. Skin: No rashes, petechiae, lesions. Normal color per patient. Neuro: Normal Gait, Grossly intact. Psych: Appropriate for situation. Results & Data Results & Data Vital Signs (Past 12 Hours) Vital Signs Temp Pulse Resp BP BP Pulse Ox O2 Del Method 08/27/24 15:07 36.8 C 72 16 117/65 96 Room Air 08/27/24 09:00 Room Air, CPAP 08/27/24 07:31 36.8 C 74 18 112/67 95 Room Air Medications Administered Acetaminophen (Acetaminophen 325 Mg Tab) 650 mg PO Q4H PRN PRN Reason: FEVER/MILD (1-3) PAIN Stop: 09/24/24 17:39 Last Admin: 08/27/24 15:12 Dose: 650 mg Documented By: Admin: 08/27/24 09:03 Dose: 650 mg Documented By: ANAMARIA Allopurin[facility] ([facility]ol 300 Mg Tab) [facility] Stop: 09/25/24 08:59 Last Admin: 08/27/24 09:06 Dose: 300 mg Documented By: Admin: 08/26/24 09:25 Dose: 300 mg Documented By: HRB Aspirin (Aspirin 81 Mg Ectab) [facility] [place] Stop: 09/25/24 08:59 Last Admin: 08/27/24 09:06 Dose: 81 mg Documented By: Admin: 08/26/24 09:24 Dose: 81 mg Documented By: HRB Atorvastatin Calcium (Atorvastatin 40 Mg Tab) 40 mg PO [facility] Stop: 09/24/24 20:59 Last Admin: 08/26/24 20:20 Dose: 40 mg Documented By: Admin: 08/25/24 21:30 Dose: 40 mg Documented By: VANESSA Ferrous Sulfate (Ferrous Sulfate 325 Mg Tab) 325 mg PO QAM [facility] Stop: 09/25/24 08:59 Last Admin: 08/27/24 09:07 Dose: 325 mg Documented By: Admin: 08/26/24 09:25 Dose: 325 mg Documented By: HRB Lisinopril (Lisinopril 10 Mg Tab) 10 mg PO BID [facility] Stop: 09/24/24 20:59 Last Admin: 08/27/24 09:07 Dose: 10 mg Documented By: Admin: 08/26/24 20:20 Dose: 10 mg Documented By: Admin: 08/26/24 09:30 Dose: 10 mg Documented By: Admin: 08/25/24 21:30 Dose: 10 mg Documented By: VANESSA Oxycodone HCl (Oxycodone Hcl Ir 5 Mg Tab (Immediate Release)) 5 mg PO Q4H PRN PRN Reason: MOD/SEV PAIN (4-10) Stop: 09/08/24 17:39 Last Admin: 08/27/24 15:11 Dose: 5 mg Documented By: Admin: 08/27/24 09:05 Dose: 5 mg Documented By: Admin: 08/27/24 02:06 Dose: 5 mg Documented By: Admin: 08/26/24 20:19 Dose: 5 mg Documented By: Admin: 08/26/24 15:19 Dose: 5 mg Documented By: Admin: 08/26/24 09:25 Dose: 5 mg Documented By: Admin: 08/25/24 19:41 Dose: 5 mg Documented By: VANESSA Pregabalin (Pregabalin 150 Mg Cap) 150 mg PO BID [facility] Stop: 09/24/24 20:59 Last Admin: 08/27/24 09:09 Dose: 150 mg Documented By: Admin: 08/26/24 20:22 Dose: 150 mg Documented By: Admin: 08/26/24 09:25 Dose: 150 mg Documented By: Admin: 08/25/24 22:19 Dose: 150 mg Documented By: VANESSA Sertraline HCl (Sertraline Hcl 50 Mg Tablet) 125 mg PO QAM [facility] Stop: 09/25/24 08:59 Last Admin: 08/27/24 09:07 Dose: 125 mg Documented By: Admin: 08/26/24 09:25 Dose: 125 mg Documented By: HRB (1) HTN (hypertension) Hypertension type: unspecified Qualified Code(s): I10 - Essential (primary) hypertension
[2024-08-28] MEDS: LIDOCAINE 5% 1 PATCH TD SCH (09:31)
--- NOTE | 2024-08-28 13:24 | Hospitalist Progress Note ---
Date of Service August 28, 2024 Assessment & Plan (1) HTN (hypertension): (2) Nocturnal hypoxemia: (3) History of hypertension: (4) Diabetes mellitus, type 2: (5) Severe obstructive sleep apnea: (6) Hx of hyperlipidemia: (7) Hx of gout: (8) History of depression: (9) Opioid abuse, in remission: (10) Herpes simplex virus (HSV) infection: Plan The patient is a 69-year-old male who recently underwent a lumbar fusion with Dr. Randolph on 08/15/24. Presents to the ED on with complaints of worsening lower back pain and ambulatory dysfunction over the past few days. Lower back pain Ambulatory dysfunction S/p L3-L4 decompression/fusion08/15: continue oxycodone q4hr prn -start lidocaine patch PT/OT, case management referral Hx depression: Continue Zoloft Hx HTN/HLD: Continue home lisinopril/statin Hx DM2: A1c in 07/25 was 5.8, hold oral diabetic agents SSI/4 times daily BGM Hx ANTHONY: Continue CPAP at bedtime I spent a total of 35 minutes in direct patient care, including [id number] time with the patient and/or family, reviewing medical records, ordering and reviewing diagnostic tests, and coordinating care with other healthcare providers. This time includes: history taking, physical examination, medical decision making, counseling, ECG interpretation, imaging interpretation, lab interpretation, orders, and education, excluding time spent in the performance of separately billed services. Admission and Anticipated Discharge Date Admission Date: August 25, 2024 Subjective Patient seen and examined at bedside. Patient doing well today, does like the lidocaine patch. Review of Systems Review of Systems: CONSTITUTIONAL: Patient denies fevers, chills, sweats and weight changes. EYES: Patient denies any visual symptoms. EARS, NOSE, AND THROAT: No difficulties with hearing. No symptoms of rhinitis or sore throat. CARDIOVASCULAR: Patient denies chest pains, palpitations, orthopnea and paroxysmal nocturnal dyspnea. RESPIRATORY: No dyspnea on exertion, no wheezing or cough. GI: No nausea, vomiting, diarrhea, constipation, abdominal pain, hematochezia or melena. : No urinary hesitancy or dribbling. No nocturia or urinary frequency. No abnormal urethral discharge. MUSCULOSKELETAL: back pain NEUROLOGIC: No chronic headaches, no seizures. Patient denies numbness, tingling or weakness. PSYCHIATRIC: Patient denies problems with mood disturbance. No problems with anxiety. ENDOCRINE: No excessive urination or excessive thirst. DERMATOLOGIC: Patient denies any rashes or skin changes. Physical Exam Physical Exam: Gen: A&O 3 NAD HEENT: NCAT, EOMI, not icteric. External ears normal. No rhinorrhea. Moist mucous membranes. Neck: Supple, full range of motion, no observable masses, No meningeal sign. Lungs: No Respiratory distress. CV: RRR, no edema. Abdomen: Soft, nondistended, No rebound tenderness. MSK: No joint swelling, no redness. Skin: No rashes, petechiae, lesions. Normal color per patient. Neuro: Normal Gait, Grossly intact. Psych: Appropriate for situation. Results & Data Results & Data Vital Signs (Past 12 Hours) Vital Signs Temp Pulse Resp BP Pulse Ox O2 Del Method 08/28/24 08:29 CPAP 08/28/24 07:45 36.4 C L 71 18 116/68 96 Room Air Medications Administered Acetaminophen (Acetaminophen 325 Mg Tab) 650 mg PO Q4H PRN PRN Reason: FEVER/MILD (1-3) PAIN Stop: 09/24/24 17:39 Last Admin: 08/27/24 23:42 Dose: 650 mg Documented By: [facility] Admin: 08/27/24 15:12 Dose: 650 mg Documented By: Admin: 08/27/24 09:03 Dose: 650 mg Documented By: ANAMARIA Allopurinol (Allopurinol 300 Mg Tab) 300 mg PO [facility] Stop: 09/25/24 08:59 Last Admin: 08/28/24 07:45 Dose: 300 mg Documented By: Admin: 08/27/24 09:06 Dose: 300 mg Documented By: Admin: 08/26/24 09:25 Dose: 300 mg Documented By: CHAYO Aspirin (Aspirin 81 Mg Ectab) 81 mg PO [facility] Stop: 09/25/24 08:59 Last Admin: 08/28/24 07:45 Dose: 81 mg Documented By: Admin: 08/27/24 09:06 Dose: 81 mg Documented By: Admin: 08/26/24 09:24 Dose: 81 mg Documented By: CHAYO Atorvastatin Calcium (Atorvastatin 40 Mg Tab) 40 mg PO [facility] Stop: 09/24/24 20:59 Last Admin: 08/27/24 20:54 Dose: 40 mg Documented By: Admin: 08/26/24 20:20 Dose: 40 mg Documented By: Admin: 08/25/24 21:30 Dose: 40 mg Documented By: VANESSA Ferrous Sulfate (Ferrous Sulfate 325 Mg Tab) 325 mg PO QAM [facility] Stop: 09/25/24 08:59 Last Admin: 08/28/24 07:46 Dose: 325 mg Documented By: Admin: 08/27/24 09:07 Dose: 325 mg Documented By: Admin: 08/26/24 09:25 Dose: 325 mg Documented By: CHAYO Lidocaine (Lidocaine 5% 1 Patch) 1 patch TD [facility] Stop: 09/27/24 08:59 Last Admin: 08/28/24 09:31 Dose: 1 patch Documented By: GWEN Lisinopril (Lisinopril 10 Mg Tab) 10 mg PO BID [facility] Stop: 09/24/24 20:59 Last Admin: 08/28/24 07:45 Dose: 10 mg Documented By: Admin: 08/27/24 20:54 Dose: 10 mg Documented By: [facility] Admin: 08/27/24 09:07 Dose: 10 mg Documented By: Admin: 08/26/24 20:20 Dose: 10 mg Documented By: Admin: 08/26/24 09:30 Dose: 10 mg Documented By: Admin: 08/25/24 21:30 Dose: 10 mg Documented By: VANESSA Oxycodone HCl (Oxycodone Hcl Ir 5 Mg Tab (Immediate Release)) 5 mg PO Q4H PRN PRN Reason: MOD/SEV PAIN (4-10) Stop: 09/08/24 17:39 Last Admin: 08/28/24 07:45 Dose: 5 mg Documented By: Admin: 08/28/24 02:20 Dose: 5 mg Documented By: [facility] Admin: 08/27/24 20:54 Dose: 5 mg Documented By: [facility] Admin: 08/27/24 15:11 Dose: 5 mg Documented By: Admin: 08/27/24 09:05 Dose: 5 mg Documented By: Admin: 08/27/24 02:06 Dose: 5 mg Documented By: Admin: 08/26/24 20:19 Dose: 5 mg Documented By: Admin: 08/26/24 15:19 Dose: 5 mg Documented By: Admin: 08/26/24 09:25 Dose: 5 mg Documented By: Admin: 08/25/24 19:41 Dose: 5 mg Documented By: VANESSA Pregabalin (Pregabalin 150 Mg Cap) 150 mg PO BID [facility] Stop: 09/24/24 20:59 Last Admin: 08/28/24 07:44 Dose: 150 mg Documented By: Admin: 08/27/24 20:54 Dose: 150 mg Documented By: Admin: 08/27/24 09:09 Dose: 150 mg Documented By: Admin: 08/26/24 20:22 Dose: 150 mg Documented By: Admin: 08/26/24 09:25 Dose: 150 mg Documented By: Admin: 08/25/24 22:19 Dose: 150 mg Documented By: VANESSA Sertraline HCl (Sertraline Hcl 50 Mg Tablet) 125 mg PO QAM [facility] Stop: 09/25/24 08:59 Last Admin: 08/28/24 07:45 Dose: 125 mg Documented By: Admin: 08/27/24 09:07 Dose: 125 mg Documented By: Admin: 08/26/24 09:25 Dose: 125 mg Documented By: CHAYO (1) HTN (hypertension) Hypertension type: unspecified Qualified Code(s): I10 - Essential (primary) hypertension
[2024-08-28 15:26] VITALS: O2SAT 95
[2024-08-29 07:14] VITALS: PULSE 71; RESP 16; TEMP 98.1
[2024-08-29 07:33] VITALS: BP 103/61
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
== END 2024-08-29 18:48 | disposition home health service (06) | DRG 552 ==
LOC: ED 14:07 → SUATTDRO 15:27 → EDINP 15:27 → 3N 18:38